=== PATIENT | male | born 1955 | race Caucasian/White ===

== ENCOUNTER 2017-10-19 07:48 | Day surgery (SDC) | payer MEDICARE, OTHER ==
[2017-10-19] MEDS ORDERED: Lactated Ringers 1,000 ML IV ONE (07:49)
[2017-10-19] MEDS ORDERED: Xylocaine 1% Vial 30 ML PF IJ ONE (07:49)
[2017-10-19] MEDS ORDERED: Marcaine 0.5% SDV 10 ML IJ ONE (07:49)
[2017-10-19] MEDS ORDERED: DIPRIVAN 200 MG/20 ML IV ONE (07:49)
--- NOTE | 2017-10-19 13:06 | XRAY ---
35 seconds fluoroscopy time in surgery for L4-S1 MBB.
--- NOTE | 2017-10-19 13:07 | XRAY ---
Indication: L4-S1 MBB. Intraoperative fluoroscopy was provided for 35 seconds. 3 digital spot images submitted for interpretation demonstrates posterior spinal needle tips projecting over the left L3-L4, L4-L5, and L5-S1 facets. Correlate with intraoperative findings/report.
--- NOTE | 2017-10-20 11:10 | OP ---
DATE OF PROCEDURE: 10/19/2017 0937 SURGEON: Xu Donohue D.O. PREOPERATIVE DIAGNOSIS: Degenerative lumbar spine disease, spondylosis, low back pain. POSTOPERATIVE DIAGNOSIS: Degenerative lumbar spine disease, spondylosis, low back pain. PROCEDURE PERFORMED: Left L5, L4, L3 medial branch block under fluoroscopic guidance. DESCRIPTION OF THE PROCEDURE: The patient was taken to the operating room and placed in the prone position on the table. Skin at the injection site was prepped and draped in sterile fashion. Under fluoroscopy, bony anatomy of the targeted injection site was visualized. Induction agent was given as per anesthesia while vital signs were monitored. The local anesthetic agent used for this procedure is 11 cc of 1% lidocaine preservative free to anesthetize the skin and the subcutaneous tissue through the injection site. The medication used for the nerve blocks is 1 cc of 0.5% preservative-free Marcaine were injected into each of the targeted medial branch nerve. Under fluoroscopic guidance, a #20 gauge standard spinal needle was advanced into the target medial branch through the oblique approach. After the needle was being removed, the skin was cleansed with alcohol and then a bandage was applied. No complications or adverse consequences were observed. The patient was returned to the holding area until stabilized before discharge to home. Preoperative pain level is 8 out of 10 and postoperative pain level is 7 out of 10. The patient will be followed up within ten days after the injection for re-evaluation.
== END 2017-10-19 10:15 | disposition home or self-care (01) ==
LOC: SDC-PAIN 07:48
PROVIDERS: ATTEND Internal Medicine
DX: M54.5 Low back pain (principal); M46.96 Unspecified inflammatory spondylopathy, lumbar region; M51.36 Other intervertebral disc degeneration, lumbar region; Z79.891 Long term (current) use of opiate analgesic
CPT/HCPCS: 64493; 64494; 64495; 72020; 77003; 82962; J2001; J2704

== ENCOUNTER 2018-03-12 14:40 | Emergency (ER) | payer MEDICARE, OTHER ==
[2018-03-12 15:01] VITALS: BP 132/78; PULSE 82; O2SAT 97
--- NOTE | 2018-03-12 15:37 | ERPHSYRPT ---
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 swelling and ppain with movement,. Triage Nursing Assessment: alert and oriented.. pain in left wrist with swelling. + radial pulse palpable. denies any other injuries. swelling to hand. Physician History: This is a 62-year-old white male with history of diabetes, liver disease, sleep apnea, hyperlipidemia, high blood pressure, myocardial infarction, hepatitis, arthritis, degenerative disc disease. He arrives with complaint of pain in his left wrist since yesterday states he was pulling on a lawn more and injured his left wrist he states he has pain with any movement of his left wrist located dorsally medially and laterally. Patient is not having any problems moving his fingers he does state he has some paresthesias to the fingers. Past medical history includes diabetes, liver disease, sleep apnea, hyperlipidemia, high blood pressure, myocardial infarction, hepatitis, arthritis , degenerative disc disease. Past surgical history includes bariatric surgery, left knee replacement, nasal surgery, elbow surgery Occurred: yesterday Method of Injury: other (starting a lawnmower and injured his left wrist) Extremities Pain Location: wrist: left Modifying Factors: Improves With: movement Associated Symptoms: none Allergies/Adverse Reactions: No Known Drug Allergies Allergy (Unverified 10/29/14 09:17) Home Medications: Atorvastatin Calcium [Lipitor] 20 mg PO DAILY 10/19/12 [History] Fluoxetine HCl 20 mg [Prozac 20 MG] 40 mg PO DAILY 10/19/12 [History] Alendronate Sodium 35 mg PO WEEKLY 08/15/17 [History] Amlodipine Besylate 10 mg [Norvasc 10 MG] 10 mg PO DAILY 08/15/17 [History] Aspirin [Aspirin EC] 81 mg PO DAILY 08/15/17 [History] Benazepril HCl 10 mg [Lotensin 10 MG] 10 mg PO DAILY 08/15/17 [History] Carvedilol 12.5 mg [Coreg 12.5 mg] 12.5 mg PO BID 08/15/17 [History] Metformin HCl 500 mg [Glucophage 500 MG] 500 mg PO DAILY 08/15/17 [History ] Ropinirole HCl 1 mg PO BID 08/15/17 [History] Sildenafil Citrate [Viagra] 50 mg PO UD 08/15/17 [History] Gabapentin 300 - 600 mg PO HS 09/19/17 [History] Hydrocodone/Acetaminophen [[facility] 5-325 Tablet] 1 each PO TID 10/11/17 [History] Hx Influenza Vaccination/Date Given: Yes Hx Pneumococcal Vaccination/Date Given: Yes Immunizations Up to Date: No - Review of Systems Constitutional: No Fever, No Chills Eyes: No Symptoms Ears, Nose, & Throat: No Symptoms Respiratory: No Cough, No Dyspnea Cardiac: No Chest Pain, No Edema, No Syncope Abdominal/Gastrointestinal: No Symptoms Genitourinary Symptoms: No Dysuria Musculoskeletal: Other (left wrist pain), No Back Pain, No Neck Pain Skin: No Rash Neurological: No Dizziness, No Focal Weakness, No Sensory Changes Psychological: No Symptoms Endocrine: No Symptoms All Other Systems: Reviewed and Negative - Past Medical History Pertinent Past Medical History: Yes Neurological History: No Pertinent History ENT History: No Pertinent History Cardiac History: High Cholesterol, Hypertension, Myocardial Infarction ([place]) Respiratory History: Sleep Apnea Endocrine Medical History: Diabetes Type II, Liver Disease Musculoskeletal History: Arthritis, Degenerative Disk Disease GI Medical History: Hepatitis History: No Pertinent History Psycho-Social History: No Pertinent History Male Reproductive Disorders: No Pertinent History Other Medical History: Hep C - Past Surgical History Past Surgical History: Yes Neuro Surgical History: No Pertinent History Cardiac: Cardiac Catheterization Respiratory: No Pertinent History Gastrointestinal: Other Genitourinary: No Pertinent History Musculoskeletal: Orthopedic Surgery, Other Male Surgical History: No Pertinent History Other Surgical History: bariatric surgery 5yrs ago 3 back surgeries, left knee replacement,2 nasal surgeries, left elbow, several scopes of different joints - Social History Smoking Status: Former smoker Exposure to second hand smoke: No Drug Use: none Patient Lives Alone: No - Nursing Vital Signs Nursing Vital Signs: Initial Vital Signs Temperature 98.5 F 03/12/18 14:51 Pulse Rate 82 03/12/18 14:51 Respiratory Rate 18 03/12/18 14:51 Blood Pressure 132/78 03/12/18 14:51 O2 Sat by Pulse Oximetry 97 03/12/18 14:51 Pain Scale Pain Intensity 6 - Physical Exam General Appearance: mild distress Eyes, Ears, Nose, Throat Exam: moist mucous membranes Neck Exam: non-tender, supple Cardiovascular/Respiratory Exam: chest non-tender, normal breath sounds, regular rate/rhythm, no respiratory distress Abdominal Exam: non-tender, No guarding Back Exam: normal inspection, No vertebral tenderness Shoulder Exam: normal inspection, non-tender, no evidence of injury, normal ROM Elbow/Forearm Exam: normal inspection, non-tender, no evidence of injury, normal ROM Wrist Exam: No normal inspection (left wrist tender with palpation and movement , dorsally, laterally, medially, left radial and ulnar pulses equal equal 2/4, good capillary refill all fingers sensation intact to all fingers.) Hand Exam: normal inspection, non-tender, no evidence of injury, normal ROM Neuro/Tendon Exam: normal sensation, normal motor functions Mental Status Exam: alert, oriented x 3, cooperative Skin Exam: normal color, warm, dry SpO2 Interpretation: normal (97%) SpO2: 97 Oxygen Delivery: Room Air - Course Nursing assessment & vital signs reviewed: Yes - Radiology Exams Left Wrist X-ray Interpretation: Reviewed by me, Negative, No Fracture, No Subluxation Ordered Tests: Active Orders 24 hr Category Date Time Status WRIST (MIN 3 VIEWS) Stat Exams 03/12/18 14:55 Taken - Progress Progress: improved Progress Note: 03/12/18 15:35 62-year-old white male arrives with complaint of pain and swelling left wrist since starting a lawn more yesterday he stated that he injured his wrist trying to start the lawn more he has pain in his left dorsal medial and lateral wrist with palpation and movement. He has good capillary refill to all fingers sensation intact to all fingers radial and ulnar pulses are intact and symmetrical 2 over 4. X-ray of the left wrist (my read, no fracture no subluxation) Patient apparently has had recent eye surgery and is due for eye surgery again tomorrow. Patient is also on [place]s 10/325 at home for chronic pain. I've offered to give him some [place] 10/325 here in the emergency room as he had not taken his afternoon dose however he states he would prefer to go home and take his own medication. Will go ahead and place a Velcro wrist splint on the left wrist. Patient to ice and elevate left wrist 24-48 hours pain medication as prescribed by his pain production control expediter. - Departure Time of Disposition: 15:37 Departure Disposition: Home Clinical Impression: Left wrist pain Left wrist sprain Qualifiers: Encounter type: initial encounter Qualified Code(s): S63.502A - Unspecified sprain of left wrist, initial encounter Condition: Fair Critical Care Time: No Referrals: CHLOÉ CARABALLO [Primary Care Provider] - Additional Instructions: Return home. Ice and elevate your left wrist 24-48 hours. [facility]s as prescribed by your pain production control expediter. Follow-up with your family Dr. symptoms are worse no better in 24-48 hours or persist longer than one week. Return for acute distress or for severe symptoms. Your x-rays have been preliminarily read they will be reread tomorrow you'll be contacted if any discrepancies are noted. You may wear your left wristlet for 48-72 hours, longer if pain persists.
--- NOTE | 2018-03-12 20:27 | XRAY ---
Indication: Pain following injury. Comparison: None 3 views of the left wrist demonstrates nondisplaced hairline fracture involving the distal radius anteriorly with intra-articular extension and soft tissue swelling. Also nondisplaced ulnar styloid tip fracture. Mild degenerative changes of the scaphoid trapezium articulation. No other bony, articular, or soft tissue abnormalities. Comment: Fractures not reported. Telephone report given to Dr. Pearson at 0825 hrs. on March 12, 2018.
== END 2018-03-12 16:01 | disposition home or self-care (01) ==
LOC: ED 14:40
DX: S63.502A Unspecified sprain of left wrist, initial encounter (principal); M25.532 Pain in left wrist; Z79.899 Other long term (current) drug therapy; X50.3XXA Overexertion from repetitive movements, initial encounter; Y93.H2 Activity, gardening and landscaping; Y92.007 Garden or yard of unspecified non-institutional (private) residence as the place of occurrence of the external cause
CPT/HCPCS: 73110; 99283

== ENCOUNTER 2018-07-12 08:58 | Day surgery (SDC) | payer MEDICARE, OTHER ==
[2018-07-12] MEDS ORDERED: DIPRIVAN 200 MG/20 ML IV ONE (08:59)
[2018-07-12] MEDS ORDERED: Depo-Medrol 40 MG/ML IM ONE (08:59)
[2018-07-12] MEDS ORDERED: Xylocaine-Mpf 2% 5 Ml Vial IJ ONE (08:59)
--- NOTE | 2018-07-12 12:25 | XRAY ---
Indication: Bilateral L4-S1 MBB. Intraoperative fluoroscopy was provided for 34 seconds. 2 digital spot images submitted for interpretation demonstrates posterior spinal needle tips along the expected course of the left and right L4-S1 nerve roots. Correlate with intraoperative findings/report.
--- NOTE | 2018-07-12 14:44 | XRAY ---
34 seconds fluoroscopy time in surgery for bilateral L4-S1 MBB.
[2018-07-12] MEDS ORDERED: Lactated Ringers 1,000 ML IV ONE (14:58)
== END 2018-07-12 11:58 | disposition home or self-care (01) ==
LOC: SDC-PAIN 08:58
PROVIDERS: ATTEND Psychiatry & Neurology Pain Medicine
DX: M47.816 Spondylosis without myelopathy or radiculopathy, lumbar region (principal); M47.817 Spondylosis without myelopathy or radiculopathy, lumbosacral region; M54.5 Low back pain; E11.9 Type 2 diabetes mellitus without complications; I10 Essential (primary) hypertension; Z79.899 Other long term (current) drug therapy
CPT/HCPCS: 64493; 64494; 72020; 77002; 82962; J1030; J2704

== ENCOUNTER 2018-08-09 07:49 | Day surgery (SDC) | payer MEDICARE, OTHER ==
[2018-08-09] MEDS ORDERED: Depo-Medrol 40 MG/ML IM ONE (07:50)
[2018-08-09] MEDS ORDERED: Xylocaine 1% Vial 30 ML PF IJ ONE (07:50)
[2018-08-09] MEDS ORDERED: Marcaine 0.5% SDV 10 ML IJ ONE (07:50)
[2018-08-09] MEDS ORDERED: DIPRIVAN 200 MG/20 ML IV ONE (07:50)
[2018-08-09] MEDS ORDERED: Lactated Ringers 1,000 ML IV ONE (09:16)
--- NOTE | 2018-08-09 10:53 | XRAY ---
12 seconds fluoroscopy time in surgery for L4-S1 MBB.
--- NOTE | 2018-08-09 10:54 | XRAY ---
Indication: Bilateral L4-S1 MBB. Intraoperative fluoroscopy was provided for 12 seconds. Single digital spot image submitted for interpretation demonstrates posterior spinal needle tips along the expected course of the left and right L4-S1 nerve roots. Correlate with intraoperative findings/report.
== END 2018-08-09 10:20 | disposition home or self-care (01) ==
LOC: SDC-PAIN 07:49
PROVIDERS: ATTEND Psychiatry & Neurology Pain Medicine
DX: M47.817 Spondylosis without myelopathy or radiculopathy, lumbosacral region (principal); I10 Essential (primary) hypertension; E11.9 Type 2 diabetes mellitus without complications; Z79.899 Other long term (current) drug therapy
CPT/HCPCS: 64493; 64494; 72020; 77002; 82962; J1030; J2001; J2704

== ENCOUNTER 2018-09-06 08:48 | Day surgery (SDC) | payer MEDICARE, OTHER ==
[2018-09-06] MEDS ORDERED: Depo-Medrol 40 MG/ML IM ONE (08:49)
[2018-09-06] MEDS ORDERED: Xylocaine 1% Vial 30 ML PF IJ ONE (08:49)
[2018-09-06] MEDS ORDERED: Ketamine HCl 50 MG/ML IJ ONE (08:49)
[2018-09-06] MEDS ORDERED: Marcaine 0.5% SDV 10 ML IJ ONE (08:49)
[2018-09-06] MEDS ORDERED: DIPRIVAN 200 MG/20 ML IV ONE (08:49)
--- NOTE | 2018-09-06 12:07 | XRAY ---
Indication: L4-S1 RFA. Intraoperative fluoroscopy was provided for 32 seconds. 2 digital spot images submitted for interpretation demonstrates posterior needle tips projecting over the expected course of the right L4-S1 nerve roots. Correlate with intraoperative findings/report.
--- NOTE | 2018-09-06 12:10 | XRAY ---
32 seconds fluoroscopy time in surgery for L4-S1 RFA.
[2018-09-06] MEDS ORDERED: Lactated Ringers 1,000 ML IV ONE (13:02)
== END 2018-09-06 10:59 | disposition home or self-care (01) ==
LOC: SDC-PAIN 08:48
PROVIDERS: ATTEND Psychiatry & Neurology Pain Medicine
DX: M47.817 Spondylosis without myelopathy or radiculopathy, lumbosacral region (principal); Z79.899 Other long term (current) drug therapy; E11.9 Type 2 diabetes mellitus without complications; G47.30 Sleep apnea, unspecified; I10 Essential (primary) hypertension
CPT/HCPCS: 72020; 77002; J1030; J2001; J2704

== ENCOUNTER 2018-10-25 07:41 | Day surgery (SDC) | payer MEDICARE, OTHER ==
[2018-10-25] MEDS ORDERED: DIPRIVAN 200 MG/20 ML IV ONE (07:42)
[2018-10-25] MEDS ORDERED: Depo-Medrol 40 MG/ML IM ONE (07:42)
[2018-10-25] MEDS ORDERED: Marcaine 0.5% SDV 10 ML IJ ONE (07:42)
[2018-10-25] MEDS ORDERED: Ketamine HCl 50 MG/ML IJ ONE (07:42)
[2018-10-25] MEDS ORDERED: Xylocaine 1% Vial 30 ML PF IJ ONE (07:42)
--- NOTE | 2018-10-25 11:41 | XRAY ---
Indication: Left L4-S1 RFA. Intraoperative fluoroscopy was provided for 24 seconds. 2 digital spot images submitted for interpretation demonstrates posterior needle tips projecting over the expected course of the left L4-S1 nerve roots. Correlate with intraoperative findings/report.
--- NOTE | 2018-10-25 11:43 | XRAY ---
24 seconds fluoroscopy time in surgery for left L4-S1 RFA.
[2018-10-25] MEDS ORDERED: Lactated Ringers 1,000 ML IV ONE (12:43)
== END 2018-10-25 10:27 | disposition home or self-care (01) ==
LOC: SDC-PAIN 07:41
PROVIDERS: ATTEND Psychiatry & Neurology Pain Medicine
DX: M47.816 Spondylosis without myelopathy or radiculopathy, lumbar region (principal); E11.9 Type 2 diabetes mellitus without complications; I10 Essential (primary) hypertension; G47.30 Sleep apnea, unspecified; Z79.899 Other long term (current) drug therapy
CPT/HCPCS: 64635; 64636; 72100; 77002; 82962; J1030; J2001; J2704

== ENCOUNTER 2022-09-21 10:05 | Observation (INO) | payer MEDICARE, OTHER ==
--- NOTE | 2022-09-21 10:19 | XRAY ---
Indication: Weakness. History of stroke. Multiple contiguous images obtained through the head without contrast. Comparison: None Age-appropriate global atrophy. Large old left temporoparietal lobe infarct. Left brain stem demonstrates smaller 1.3 cm old infarct. No acute intracranial hemorrhage, hydrocephalus, or mass effect. Fourth ventricle is midline. Bony calvarium intact. Visualized paranasal sinuses and mastoid air cells are clear. Impression: Atrophy and old left temporoparietal/left brainstem infarcts. No acute intracranial abnormalities.
[2022-09-21 10:37] LABS: Absolute Neutrophil Ct (ANC) 5.12 x10^3/uL (1.4-6.9); BASOPHIL % 0.8 % (0.0-0.4); Basophil (Absolute #) 0.06 x10^3/uL (0-0.4); Eosinophil % 4.1 % (0.00-5.0); Eosinophil (Absolute #) 0.29 x10^3/uL (0-0.5); Hematocrit 45.4 % (42-50); Hemoglobin 15.1 g/dL (12.5-18.0); IMMATURE GRAN # 0.03 x10^3u/L (0.00-0.03); IMMATURE GRAN % 0.4 % (0.00-0.4); Lymphocyte (Absolute #) 1.03 x10^3/uL (1.0-4.6); Lymphocytes % 14.6 % (24.0-44.0); Mean Cell Volume 89.4 fL (78-100); Mean Corpuscular Hemoglobin 29.7 pg (26-32); Mean Corpuscular Hgb Concent. 33.3 g/dL (32-36); Mean Platelet Volume 8.8 fL (7.5-11.0); Monocyte (Absolute #) 0.54 x10^3/uL (0.0-1.3); Monocytes % 7.6 % (0.0-12.0); Neutrophil % 72.5 % (36.0-66.0); Platelet Count 383 x10^3/uL (150-450); Red Blood Count 5.08 x10^6/uL (4.1-5.6); White Blood Count 7.1 x10^3/uL (4.0-10.5)
--- NOTE | 2022-09-21 10:48 | ERPHSYRPT ---
- History of Present Illness Source: patient, other () Exam Limitations: other (Pt w chronic expressive aphasia) Patient Subjective Stated Complaint: PT states "He can follow commands but he cannot speak due to a previous stroke. He was supposed to go to speech therapy this morning and when I got him up this morning he was uncoordinated and didn't look like he was tracking well. He was last his normal at 930 last night." Triage Nursing Assessment: Pt presented alert and able to follow commands, pt will answer some questions but is mostly mute. Pt able to ambulates with a slow steady gait. PT resting comfortably on the bed at this time. Physician History: 66 yo WM w h/o brain stem CVA and expressive aphasia presents by private vehicle w being off balance and disoriented per upon waking. Pt has a chronic R hemiparesis. states that pt might be back to baseline but still has concerns. Pt had some N/V yesterday, but fever/hematemesis/diarrhea/dysuria/hematuria/abdominal pain/chest pain are all denied. Timing/Duration: today (Upon wakening), improved Severity: mild Character of Deficits: other (Off balance/disoriented per ) Baseline/Normal Cognition: alert oriented x 3 Current Cognition: alert oriented x 3 Associated Symptoms: nausea, vomiting, slurred speech Allergies/Adverse Reactions: No Known Drug Allergies Allergy (Verified 09/21/22 10:20) Home Medications: Fluoxetine HCl 20 mg [Prozac 20 MG] 40 mg PO DAILY 10/19/12 [History] Alendronate Sodium 35 mg PO WEEKLY 08/15/17 [History] Aspirin [Aspirin EC] 81 mg PO DAILY 08/15/17 [History] Carvedilol 12.5 mg [Coreg 12.5 mg] 3.125 mg PO BID 08/15/17 [History] Ropinirole HCl 1 mg PO BID 08/15/17 [History] Esomeprazole Magnesium 40 mg PO DAILY 09/21/22 [History] Multivitamin [Multi-Vitamin Daily] 1 tab PO DAILY 09/21/22 [History] [place]-3/Dha/Epa/Fish Oil [Fish Oil 1,000 mg Softgel] 1 each PO DAILY 09/21/22 [History] lisinopriL [Zestril] 2.5 mg PO DAILY 09/21/22 [History] Hx Tetanus, Diphtheria Vaccination/Date Given: Yes Hx Influenza Vaccination/Date Given: Yes Hx Pneumococcal Vaccination/Date Given: Yes Immunizations Up to Date: Yes Travel Risk - International Travel Have you traveled outside of the country in past 3 weeks: No - Coronavirus Screening Are you exhibiting any of the following symptoms?: No Close contact with a COVID-19 positive Pt in past 14-21 Days: No - Vaccine Status Have you recieved a Covid-19 vaccination: Yes [employer]: Moderna - Vaccination Dates Date of 2cond Vaccination (if applicable): 2020 - Review of Systems Constitutional: No Symptoms Eyes: No Symptoms Ears, Nose, & Throat: No Symptoms Respiratory: No Symptoms Cardiac: No Symptoms Abdominal/Gastrointestinal: No Symptoms, Nausea, Vomiting Genitourinary Symptoms: No Symptoms Musculoskeletal: No Symptoms Skin: No Symptoms Neurological: Focal Weakness (Chronic) Psychological: No Symptoms Endocrine: No Symptoms Hematologic/Lymphatic: No Symptoms Immunological/Allergic: No Symptoms - Past Medical History Pertinent Past Medical History: Yes Neurological History: Migraines, Stroke ENT History: No Pertinent History Cardiac History: Hypertension, Myocardial Infarction ([place]) Respiratory History: No Pertinent History Endocrine Medical History: Diabetes Type II Musculoskeletal History: Fractures, Osteoarthritis GI Medical History: Hepatitis History: No Pertinent History Psycho-Social History: No Pertinent History Male Reproductive Disorders: No Pertinent History Other Medical History: HEPATITIS C, CHRONIC PAIN SYNDROME, DYSPHAGIA. SX HX: BACK SX X 5, RIGHT SHOULDER REPLACEMENT, RIGHT KNEE REPLACEMENT, GASTRIC BYPASS 2009 - Past Surgical History Past Surgical History: Yes Neuro Surgical History: No Pertinent History Cardiac: Cardiac Catheterization Respiratory: No Pertinent History Gastrointestinal: Other Genitourinary: No Pertinent History Musculoskeletal: Orthopedic Surgery, Other Male Surgical History: No Pertinent History Other Surgical History: bariatric surgery 5yrs ago 3 back surgeries, left knee replacement,2 nasal surgeries, left elbow, several scopes of different joints - Social History Smoking Status: Former smoker Exposure to second hand smoke: No Drug Use: none Patient Lives Alone: No - Nursing Vital Signs Nursing Vital Signs: Initial Vital Signs Temperature 98.6 F 09/21/22 10:12 Pulse Rate 60 09/21/22 10:12 Respiratory Rate 20 09/21/22 10:12 Blood Pressure 120/80 09/21/22 10:12 O2 Sat by Pulse Oximetry 96 09/21/22 10:12 Pain Scale Pain Intensity 0 WNL - Merkel Coma Scale Best Eye Response (Merkel): (4) open spontaneously Best Verbal Response (Merkel): (5) oriented (Pwer ) Best Motor Response (Lucio): (6) obeys commands Lucio Total: 15 - Physical Exam General Appearance: no apparent distress Eye Exam: bilateral eye: normal inspection, PERRL, EOMI Ears, Nose, Throat Exam: normal ENT inspection, TMs normal, pharynx normal, moist mucous membranes Neck Exam: normal inspection, non-tender, supple, full range of motion, No meningismus, No mass, No Brudzinski, No Kernig's, No carotid bruit Respiratory: airway intact, crackles/rales (Faint Rales B bases), No respiratory distress Cardiovascular: regular rate/rhythm, normal heart sounds, normal peripheral pulses, capillary refill <2 sec, No murmur Gastrointestinal: soft, normal bowel sounds, No tenderness Back Exam: normal inspection, normal range of motion, No CVA tenderness, No vertebral tenderness Extremity Exam: normal inspection, normal range of motion Peripheral Pulses: carotid (R): 2+, carotid (L): 2+ Mental Status: alert, oriented x 3 respite care provider Exam: normal hearing (Chronic deafness), PERRL Motor/Sensory: weak motor strength RLE (Chronic ) DTR: bicep (R): 2+, bicep (L): 2+ Skin Exam: normal color, warm, dry, No rash SpO2 Interpretation: normal SpO2: 96 O2 Delivery: Room Air - Course EKG Interpreted by Me: RATE (NSR/Rate 66/Normal QT-QTc/Artifact/Poor R wave progression V2-V3) - CT Exams Head CT Interpretation: Discussed w/radiologist (CT stroke protocol/Nothing acute/Old L temporo-parietal CVA/L brainstem infarcts) Ordered Tests: Active Orders 24 hr Category Date Time Status Bedrest ROUTINE Activity 09/21/22 13:20 Active Code Status Order ROUTINE Care 09/21/22 13:19 Active EKG-ER Only STAT Care 09/21/22 10:07 Active EKG-ER Only STAT Care 09/21/22 10:35 Active IV Care Q6H Care 09/21/22 13:19 Active IV Insertion STAT Care 09/21/22 10:07 Active NPO (ED) STAT Care 09/21/22 10:07 Active Neuro Checks Q4H Care 09/21/22 13:[address] in Observation ROUTINE Care 09/21/22 13:19 Active Vital Signs Q4H Care 09/21/22 13:19 Active Tele-Health Consult ROUTINE Cons 09/21/22 13:19 Active Heart-Healthy Diet Diet 09/21/22 Dinner Active HEAD WITHOUT CONTRAST [CT] Stat Exams 09/21/22 10:07 Completed MRA BRAIN WITHOUT CONTRAST [MRI] Stat Exams 09/21/22 10:41 Completed MRI BRAIN W/O CONTRAST [MRI] Stat Exams 09/21/22 10:40 Completed CBC W DIFF AM.LAB Lab 09/22/22 04:00 Ordered CBC W DIFF Stat Lab 09/21/22 10:20 Completed CMP AM.LAB Lab 09/22/22 04:00 Ordered MAGNESIUM Stat Lab 09/21/22 10:20 Completed PROTIME WITH INR Stat Lab 09/21/22 10:20 Completed PTT Stat Lab 09/21/22 10:20 Completed TROPONIN Q4H Lab 09/21/22 14:15 Ordered TROPONIN Q4H Lab 09/21/22 18:15 Ordered Transfer Order Routine Transfer 09/21/22 Ordered Medication Summary Generic Name Dose Route Start Last Admin Trade Name Freq PRN Reason Stop Dose Admin Sodium Chloride 1,000 mls @ 70 mls/hr 09/21/22 13:30 Sodium Chloride 0.9% 1000 Ml IV 10/21/22 13:29 .[id number] RENU Discontinued Medications Generic Name Dose Route Start Last Admin Trade Name Freq PRN Reason Stop Dose Admin Aspirin 324 mg 09/21/22 12:45 09/21/22 12:38 Aspirin 81 Mg Tab.Chew PO 09/21/22 12:46 324 mg STAT ONE Administration Aspirin Confirm 09/21/22 12:37 Aspirin 81 Mg Tab.Chew Administered 09/21/22 12:38 Dose 324 mg .ROUTE .STK-MED ONE Lab/Rad Data: Laboratory Result Diagrams 09/21/22 10:20 09/21/22 10:20 Laboratory Results 09/21/22 09/21/22 09/21/22 Range/Units 12:40 10:20 10:20 WBC (4.0-10.5) x10^3/uL RBC (4.1-5.6) x10^6/uL Hgb (12.5-18.0) g/dL Hct (42-50) % MCV (78-100) fL MCH (26-32) pg MCHC (32-36) g/dL RDW (11.5-14.0) % Plt Count (150-450) x10^3/uL MPV (7.5-11.0) fL Gran % (36.0-66.0) % Immature Gran % (Auto) (0.00-0.4) % Nucleat RBC Rel Count (0.00-0.1) % Eos # (Auto) (0-0.5) x10^3/uL Immature Gran # (Auto) (0.00-0.03) x10^3u/L Absolute Lymphs (auto) (1.0-4.6) x10^3/uL Absolute Monos (auto) (0.0-1.3) x10^3/uL Absolute Nucleated RBC (0.00-0.01) x10^3u/L Lymphocytes % (24.0-44.0) % Monocytes % (0.0-12.0) % Eosinophils % (0.00-5.0) % Basophils % (0.0-0.4) % Absolute Granulocytes (1.4-6.9) x10^3/uL Basophils # (0-0.4) x10^3/uL PT (9.4-12.5) SECONDS INR (0.8-3.0) APTT (25.1-36.5) SECONDS Sodium Direct (138-146) mmol/L Potassium (3.5-4.9) mmol/L Chloride (98-109) mmol/L Carbon Dioxide (24-29) mmol/L Venous BUN (8-26) mg/dL Creatinine (0.6-1.3) mg/dL Glucose (70-105) mg/dL Ionized Calcium (1.12-1.32) mmol/L Magnesium 2.4 H (1.6-2.3) mg/dL Troponin 0.00 (0.00-0.03) ng/mL Influenza Type A Ag NEGATIVE (NEGATIVE) Influenza Type B Ag NEGATIVE (NEGATIVE) RSV (PCR) NEGATIVE (NEGATIVE) SARS-CoV-2 (PCR) NEGATIVE (NEGATIVE) 09/21/22 09/21/22 09/21/22 Range/Units 10:20 10:20 10:20 WBC 7.1 (4.0-10.5) x10^3/uL RBC 5.08 (4.1-5.6) x10^6/uL Hgb 15.1 (12.5-18.0) g/dL Hct 45.4 (42-50) % MCV 89.4 (78-100) fL MCH 29.7 (26-32) pg MCHC 33.3 (32-36) g/dL RDW 13.0 (11.5-14.0) % Plt Count 383 (150-450) x10^3/uL MPV 8.8 (7.5-11.0) fL Gran % 72.5 H (36.0-66.0) % Immature Gran % (Auto) 0.4 (0.00-0.4) % Nucleat RBC Rel Count 0.0 (0.00-0.1) % Eos # (Auto) 0.29 (0-0.5) x10^3/uL Immature Gran # (Auto) 0.03 (0.00-0.03) x10^3u/L Absolute Lymphs (auto) 1.03 (1.0-4.6) x10^3/uL Absolute Monos (auto) 0.54 (0.0-1.3) x10^3/uL Absolute Nucleated RBC 0.00 (0.00-0.01) x10^3u/L Lymphocytes % 14.6 L (24.0-44.0) % Monocytes % 7.6 (0.0-12.0) % Eosinophils % 4.1 (0.00-5.0) % Basophils % 0.8 (0.0-0.4) % Absolute Granulocytes 5.12 (1.4-6.9) x10^3/uL Basophils # 0.06 (0-0.4) x10^3/uL PT 10.0 (9.4-12.5) SECONDS INR 0.91 (0.8-3.0) APTT 27.7 (25.1-36.5) SECONDS Sodium Direct 141 (138-146) mmol/L Potassium 3.8 (3.5-4.9) mmol/L Chloride 105 (98-109) mmol/L Carbon Dioxide 27 (24-29) mmol/L Venous BUN 13 (8-26) mg/dL Creatinine 0.7 (0.6-1.3) mg/dL Glucose 118 H (70-105) mg/dL Ionized Calcium 1.26 (1.12-1.32) mmol/L Magnesium (1.6-2.3) mg/dL Troponin (0.00-0.03) ng/mL Influenza Type A Ag (NEGATIVE) Influenza Type B Ag (NEGATIVE) RSV (PCR) (NEGATIVE) SARS-CoV-2 (PCR) (NEGATIVE) - Progress Progress: improved Progress Note: 09/21/22 12:[address] Nghia Mitchell mid-periventricular white matter 1cm micro-is chemia/smaller acute areas of ischemia seen anterior and posterior to this area/L insula MRA of Brain neg per Dr. Agrawal 09/21/22 13:30 Nursing note and vital signs reviewed All lab results reviewed and shared w pt CT head/MRI-MRA head reviewed and shared w pt/ Additional history per No food or housing insecurities noted Obs admit per Dr. William ASA 325mg po Discussed with DrCharly: Eyad Counseled pt/family regarding: lab results, diagnosis, rad results Medical Desision Making - Independent Historian Additional History obtained from: Spouse - Discussion of managment Care discussed with:: on-call "doc" Reviewed:: Test results, Need for additional workup Agreed on:: Treatment plan, place in obs - Diagnostic Testing Diagnostic test were ordered, analyzed, and reviewed by me: Yes Radiological Interpretation: Discussed w/ radiologist - Risk of complications The pt has a mod risk of morbidity or mortality based on: Need for prescription drug management - Departure Departure Disposition: Observation Clinical Impression: CVA (cerebral vascular accident) Condition: Stable Critical Care Time: Yes Critical Care Time(excluding separately billable procedures): Critical 30-74 mins Referrals: CHLOÉ CARABALLO [Primary Care Provider] - Follow up/PCP as directed
[2022-09-21 10:52] LABS: INR 0.91 (0.8-3.0); PTT 27.7 SECONDS (25.1-36.5)
[2022-09-21 11:03] LABS: ISTAT K 3.8 mmol/L (3.5-4.9); ISTAT iCA 1.26 mmol/L (1.12-1.32)
[2022-09-21 11:04] LABS: ISTAT CREA 0.7 mg/dL (0.6-1.3)
--- NOTE | 2022-09-21 12:19 | XRAY ---
Indication: Acute stroke. History of old stroke. Sagittal, coronal, and axial MRI brain performed without contrast using T1, T2, FLAIR, diffusion, and ADC sequences. Comparison: None Age-appropriate global atrophy and mild periventricular degenerative micro-ischemia signal bilaterally. Large old left temporoparietal infarct with encephalomalacia and gliosis signal. Left mid periventricular white matter demonstrates 1 cm focus of restricted signal favoring acute micro-ischemia. Smaller acute micro-ischemia seen anterior and posterior to this and left insula. No acute intracranial hemorrhage, hydrocephalus, or mass effect. Fourth ventricle is midline. 7/8 cranial nerve complex bilaterally symmetric. Normal flow-void signal within the major intracerebral circulation. Normal appearing craniocervical junction and sella turcica. Paranasal sinuses are clear. Impression: 1. A few centimeter/subcentimeter acute micro-ischemia seen left periventricular white matter and left insula. No acute hemorrhage/mass effect. 2. Large focus old left temporoparietal infarct. 3. Atrophy and degenerative micro-ischemia within normal limits for patient's age.
--- NOTE | 2022-09-21 12:21 | XRAY ---
Indication: Acute stroke. History old stroke. Multi-slab 3-D [id number] MRA [place] performed. Comparison: None Distal internal carotid arteries are bilaterally symmetric without critical stenosis/obstruction. Normal carotid terminus with normal branching A1 and M1 segments bilaterally. Anatomic variant for origin left posterior cerebral artery. Posterior circulation demonstrates slightly larger/dominant distal left vertebral artery. Remaining basilar, left/right posterior cerebral, and visualized left/right supracerebellar arteries are normal in MRA appearance. Impression: Negative MRA [place].
[2022-09-21] MEDS ORDERED: Ecotrin 325 MG PO ONE (12:31)
[2022-09-21] MEDS ORDERED: BABY ASPIRIN 81 MG CHEW ONE (12:37)
[2022-09-21] MEDS ORDERED: BABY ASPIRIN 81 MG CHEW PO ONE (12:45)
[2022-09-21 13:22] LABS: INFLUENZA A NEGATIVE (NEGATIVE); INFLUENZA B NEGATIVE (NEGATIVE); RESPIRATORY SYNCTIAL VIRUS NEGATIVE (NEGATIVE); SARS-CoV-2 Xpert Express NEGATIVE (NEGATIVE)
[2022-09-21] MEDS ORDERED: Sodium Chloride 0.9% 1000 ML 1,000 ML IV SCH (13:30)
[2022-09-21] MEDS ORDERED: TYLENOL 325 MG PO PRN (21:41)
[2022-09-21] MEDS ORDERED: Tums EX 750 MG PO PRN (21:43)
[2022-09-21] MEDS ORDERED: NON-FORMULARY ITEM (Sodium Bicarbonate 650 MG Tablet) PO SCH (22:00)
[2022-09-21] MEDS ORDERED: COREG 12.5 MG PO SCH (22:00)
[2022-09-21] MEDS ORDERED: NON-FORMULARY ITEM (Ropinirole Hcl [Ropinirole Hcl] 1 MG Tablet) PO SCH (22:00)
[2022-09-21] MEDS: REQUIP 2MG TAB PO SCH (22:17)
[2022-09-21] MEDS: Coreg PO SCH (22:17)
[2022-09-21] MEDS: SODIUM BICARBONATE PO SCH (22:18)
[2022-09-22 05:20] LABS: Absolute Neutrophil Ct (ANC) 4.95 x10^3/uL (1.4-6.9); BASOPHIL % 0.5 % (0.0-0.4); Basophil (Absolute #) 0.04 x10^3/uL (0-0.4); Eosinophil % 3.5 % (0.00-5.0); Eosinophil (Absolute #) 0.26 x10^3/uL (0-0.5); Hematocrit 43.6 % (42-50); Hemoglobin 14.4 g/dL (12.5-18.0); IMMATURE GRAN # 0.02 x10^3u/L (0.00-0.03); IMMATURE GRAN % 0.3 % (0.00-0.4); Lymphocyte (Absolute #) 1.54 x10^3/uL (1.0-4.6); Lymphocytes % 20.8 % (24.0-44.0); Mean Cell Volume 88.4 fL (78-100); Mean Corpuscular Hemoglobin 29.2 pg (26-32); Mean Platelet Volume 8.8 fL (7.5-11.0); Monocytes % 8.1 % (0.0-12.0); Neutrophil % 66.8 % (36.0-66.0); Platelet Count 340 x10^3/uL (150-450); Red Blood Count 4.93 x10^6/uL (4.1-5.6); Red Cell Distribution Width 13.1 % (11.5-14.0); White Blood Count 7.4 x10^3/uL (4.0-10.5)
[2022-09-22 06:04] LABS: ALBUMIN 3.3 g/dL (3.5-5.0); ALKALINE PHOSPHATASE 96 U/L (38-126); ANION GAP 9.5 MEQ/L (5-15); BLOOD UREA NITROGEN 11 mg/dL (9-20); CHLORIDE 105 mmol/L (98-107); Calcium 8.3 mg/dL (8.4-10.2); Carbon Dioxide 29 mmol/L (22-30); Creatinine 1 0.61 mg/dL (0.66-1.25); EST GLOMERULAR FILTRATION RATE > 60.0 ML/MIN; Glucose 91 mg/dL (74-106); Potassium 3.5 mmol/L (3.5-5.1); SGOT/AST 30 U/L (17-59); SGPT/ALT 34 U/L (0-50); SODIUM 140 mmol/L (137-145); Total Protein 6.2 g/dL (6.3-8.2)
[2022-09-22] MEDS: Protonix 40MG Tablet PO SCH (09:17)
[2022-09-22] MEDS: SODIUM BICARBONATE PO SCH ×2 (09:17→21:37)
[2022-09-22] MEDS: ZOCOR 20MG PO SCH (09:17)
[2022-09-22] MEDS: Prozac 20 MG PO SCH (09:17)
[2022-09-22] MEDS: FISH OIL 1,000 MG CAPSULE PO SCH (09:17)
[2022-09-22] MEDS: REQUIP 2MG TAB PO SCH ×2 (09:17→21:37)
[2022-09-22] MEDS ORDERED: LIPITOR 40MG PO SCH (10:00)
[2022-09-22] MEDS ORDERED: NON-FORMULARY ITEM (Esomeprazole Magnesium [Esomeprazole Magnesium] 40 MG Suspdr.Pkt) PO SCH (10:00)
[2022-09-22] MEDS ORDERED: NON-FORMULARY ITEM (Lisinopril [Zestril] 2.5 MG Tablet) PO SCH (10:00)
[2022-09-22] MEDS: Zestril 5 MG PO SCH (11:17)
[2022-09-22] MEDS: Coreg PO SCH ×2 (11:17→21:36)
--- NOTE | 2022-09-22 13:21 | PCM.HP ---
History of Present Illness - Chief Complaint Chief Complaint: CVA History of Present Illness: is a 66 year old male pt of Dr. Jones with PMHx CAD (hx [place]), CVA (w R hemiparesis and expressive aphasia), HTN, DMII, OA, Hepatitis C, and chronic pain who came in through ER last night with c/o he was off-balance and not himself. He improved after coming to ER. CT head and labs were nonacute. MRI brain showed few cm/subcm acute micro- ischemia, L periventricular white matter and L insula. MRA showed nl [place]. Teleneurology consult was done, thank you, and they recommended atorvastatin 20mg/d, plavix x 21d, ASA 81mg/d, echo (with bubble study), carotid dopplers, and zio patch x2-4 weeks. Pt not able to give history, and even a full neuro exam is difficult due to his expressive aphasia. - Review of Systems Constitutional: No Fever Abdominal/Gastrointestinal: Nausea, Vomiting Medications & Allergies Home Medications: Home Medication List Fluoxetine HCl 20 mg [Prozac 20 MG] 40 mg PO DAILY 10/19/12 [History Confirmed 09/21/22] Alendronate Sodium 35 mg PO WEEKLY 08/15/17 [History Confirmed 09/21/22] Aspirin [Aspirin EC] 81 mg PO DAILY 08/15/17 [History Confirmed 09/21/22] Carvedilol 12.5 mg [Coreg 12.5 mg] 3.125 mg PO BID 08/15/17 [History Confirmed 09/21/22] Ropinirole HCl 1 mg PO BID 08/15/17 [History Confirmed 09/21/22] Atorvastatin Calcium 40 mg PO DAILY 09/21/22 [History Confirmed 09/21/22] Docusate Sodium 100 mg [Docusate Sodium 100 MG] 100 mg PO UD 09/21/22 [History Confirmed 09/21/22] Esomeprazole Magnesium 40 mg PO DAILY 09/21/22 [History Confirmed 09/21/22] Multivitamin [Multi-Vitamin Daily] 1 tab PO DAILY 09/21/22 [History Confirmed 09/21/22] [place]-3/Dha/Epa/Fish Oil [Fish Oil 1,000 mg Softgel] 1 each PO DAILY 09/21/22 [History Confirmed 09/21/22] Sodium Bicarbonate 650 mg PO BID 09/21/22 [History Confirmed 09/21/22] lisinopriL [Zestril] 2.5 mg PO DAILY 09/21/22 [History Confirmed 09/21/22] Allergies/Adverse Reactions: Allergies Allergy/AdvReac Type Severity Reaction Status Date / Time No Known Drug Allergies Allergy Verified 09/21/22 10:20 - Past Medical History Past Medical History: Yes Neurological History: Migraines, Stroke ENT History: No Pertinent History Cardiac History: Hypertension, Myocardial Infarction ([place]) Respiratory History: No Pertinent History Endocrine Medical History: Diabetes Type II Musculoskelatal History: Fractures, Osteoarthritis GI Medical History: Hepatitis History: No Pertinent History Pyscho-Social History: No Pertinent History Male Reproductive Disorders: No Pertinent History Comment: HEPATITIS C, CHRONIC PAIN SYNDROME, DYSPHAGIA. SX HX: BACK SX X 5, RIGHT SHOULDER REPLACEMENT, RIGHT KNEE REPLACEMENT, GASTRIC BYPASS 2009 - Past Surgical History Past Surgical History: Yes Neuro Surgical History: No Pertinent History Cardiac History: Cardiac Catheterization Respiratory Surgery: No Pertinent History GI Surgical History: Other Genitourinary Surgical Hx: No Pertinent History Musculskeletal Surgical Hx: Orthopedic Surgery, Other Male Surgical History: No Pertinent History Other Surgical History: bariatric surgery 5yrs ago 3 back surgeries, left knee replacement,2 nasal surgeries, left elbow, several scopes of different joints. joint replacement in foot. - Social History Smoking Status: Never smoker Exposure to second hand smoke: No Alcohol: None Drug Use: none - Physical Exam Vital Signs: Vital Signs - 24 hr Temp Pulse Resp BP Pulse Ox 09/22/22 11:05 98.0 F 66 16 123/76 94 L 09/22/22 07:29 98.1 F 56 L 16 121/70 93 L 09/22/22 04:00 97.1 F 63 20 127/75 94 L 09/21/22 23:53 97.2 F 57 L 21 123/72 95 09/21/22 20:00 97.3 F 62 18 136/75 93 L 09/21/22 16:00 97.7 F 59 L 17 140/87 93 L 09/21/22 14:01 97.3 F 58 L 18 129/84 98 09/21/22 13:34 96 General Appearance: no apparent distress, alert Neurologic Exam: cooperative, aphasia (expressive), other (Pt answers question with 1-3 words that may be appropriate, then the rest of the sentence is word salad.), No facial droop Eye Exam: eyes nml inspection Ears, Nose, Throat Exam: moist mucous membranes Neck Exam: normal inspection Respiratory Exam: normal breath sounds, lungs clear, No crackles/rales, No rhonchi, No wheezing Cardiovascular Exam: regular rate/rhythm, normal heart sounds, No murmur Gastrointestinal/Abdomen Exam: soft, normal bowel sounds, No tenderness, No distention, No mass, No guarding, No rebound Back Exam: normal inspection, No rash Extremity Exam: other (marked muscle wasting of upper RLE compared with left), No pedal edema, No swelling Skin Exam: normal color, warm, dry, No rash Results - Labs Lab/Micro Results: Lab Results-Last 24 Hours 09/21/22 09/21/22 09/21/22 Range/Units 12:40 14:19 18:17 WBC (4.0-10.5) x10^3/uL RBC (4.1-5.6) x10^6/uL Hgb (12.5-18.0) g/dL Hct (42-50) % MCV (78-100) fL MCH (26-32) pg MCHC (32-36) g/dL RDW (11.5-14.0) % Plt Count (150-450) x10^3/uL MPV (7.5-11.0) fL Gran % (36.0-66.0) % Immature Gran % (Auto) (0.00-0.4) % Nucleat RBC Rel Count (0.00-0.1) % Eos # (Auto) (0-0.5) x10^3/uL Immature Gran # (Auto) (0.00-0.03) x10^3u/L Absolute Lymphs (auto) (1.0-4.6) x10^3/uL Absolute Monos (auto) (0.0-1.3) x10^3/uL Absolute Nucleated RBC (0.00-0.01) x10^3u/L Lymphocytes % (24.0-44.0) % Monocytes % (0.0-12.0) % Eosinophils % (0.00-5.0) % Basophils % (0.0-0.4) % Absolute Granulocytes (1.4-6.9) x10^3/uL Basophils # (0-0.4) x10^3/uL Sodium (137-145) mmol/L Potassium (3.5-5.1) mmol/L Chloride (98-107) mmol/L Carbon Dioxide (22-30) mmol/L Anion Gap (5-15) MEQ/L BUN (9-20) mg/dL Creatinine (0.66-1.25) mg/dL Estimated GFR ML/MIN Glucose (74-106) mg/dL Calcium (8.4-10.2) mg/dL Total Bilirubin (0.2-1.3) mg/dL AST (17-59) U/L ALT (0-50) U/L Alkaline Phosphatase (38-126) U/L Troponin I < 0.012 < 0.012 (0.000-0.034) ng/mL Serum Total Protein (6.3-8.2) g/dL Albumin (3.5-5.0) g/dL Influenza Type A Ag NEGATIVE (NEGATIVE) Influenza Type B Ag NEGATIVE (NEGATIVE) RSV (PCR) NEGATIVE (NEGATIVE) SARS-CoV-2 (PCR) NEGATIVE (NEGATIVE) 09/22/22 09/22/22 Range/Units 04:00 04:53 WBC 7.4 (4.0-10.5) x10^3/uL RBC 4.93 (4.1-5.6) x10^6/uL Hgb 14.4 (12.5-18.0) g/dL Hct 43.6 (42-50) % MCV 88.4 (78-100) fL MCH 29.2 (26-32) pg MCHC 33.0 (32-36) g/dL RDW 13.1 (11.5-14.0) % Plt Count 340 (150-450) x10^3/uL MPV 8.8 (7.5-11.0) fL Gran % 66.8 H (36.0-66.0) % Immature Gran % (Auto) 0.3 (0.00-0.4) % Nucleat RBC Rel Count 0.0 (0.00-0.1) % Eos # (Auto) 0.26 (0-0.5) x10^3/uL Immature Gran # (Auto) 0.02 (0.00-0.03) x10^3u/L Absolute Lymphs (auto) 1.54 (1.0-4.6) x10^3/uL Absolute Monos (auto) 0.60 (0.0-1.3) x10^3/uL Absolute Nucleated RBC 0.00 (0.00-0.01) x10^3u/L Lymphocytes % 20.8 L (24.0-44.0) % Monocytes % 8.1 (0.0-12.0) % Eosinophils % 3.5 (0.00-5.0) % Basophils % 0.5 (0.0-0.4) % Absolute Granulocytes 4.95 (1.4-6.9) x10^3/uL Basophils # 0.04 (0-0.4) x10^3/uL Sodium 140 (137-145) mmol/L Potassium 3.5 (3.5-5.1) mmol/L Chloride 105 (98-107) mmol/L Carbon Dioxide 29 (22-30) mmol/L Anion Gap 9.5 (5-15) MEQ/L BUN 11 (9-20) mg/dL Creatinine 0.61 L (0.66-1.25) mg/dL Estimated GFR > 60.0 ML/MIN Glucose 91 (74-106) mg/dL Calcium 8.3 L (8.4-10.2) mg/dL Total Bilirubin 0.80 (0.2-1.3) mg/dL AST 30 (17-59) U/L ALT 34 (0-50) U/L Alkaline Phosphatase 96 (38-126) U/L Troponin I (0.000-0.034) ng/mL Serum Total Protein 6.2 L (6.3-8.2) g/dL Albumin 3.3 L (3.5-5.0) g/dL Influenza Type A Ag (NEGATIVE) Influenza Type B Ag (NEGATIVE) RSV (PCR) (NEGATIVE) SARS-CoV-2 (PCR) (NEGATIVE) - Radiology Impressions Radiology Exams & Impressions: Radiology Procedures Category Date Time Status ECHO W/2D AND DOPPLER [US] Routine Exams 09/22/22 12:14 Ordered HEAD WITHOUT CONTRAST [CT] Stat Exams 09/21/22 10:07 Completed MRA BRAIN WITHOUT CONTRAST [MRI] Stat Exams 09/21/22 10:41 Completed MRI BRAIN W/O CONTRAST [MRI] Stat Exams 09/21/22 10:40 Completed Assessment/Plan (1) CVA (cerebral vascular accident) Current Visit: Yes Status: Acute Qualifiers: CVA mechanism: unspecified Qualified Code(s): I63.9 - Cerebral infarction, unspecified Assessment & Plan: Appreciate teleneurology consult. Pt on 81mg ASA daily; add plavix. I did have a discussion with pharmacy, pt is on an SSRI and this can affect the metabolism of the plavix, however all SSRI/SNRI are equivocal so I will not be changing his SSRI at this time and refer that back to his PCP. Pt to stay on plavix x 21 days. Code(s): I63.9 - CEREBRAL INFARCTION, UNSPECIFIED (2) CAD (coronary artery disease) Current Visit: Yes Status: Chronic Qualifiers: Coronary Disease-Associated Artery/Lesion type: [place] artery [place] vs. transplanted heart: [place] heart Associated angina: without angina Qualified Code(s): I25.10 - Atherosclerotic heart disease of [place] coronary artery without angina pectoris Code(s): I25.10 - ATHSCL HEART DISEASE OF [place] CORONARY ARTERY W/O ANG PCTRS (3) HTN (hypertension) Current Visit: Yes Status: Chronic Qualifiers: Hypertension type: primary hypertension Qualified Code(s): I10 - Essential (primary) hypertension Code(s): I10 - ESSENTIAL (PRIMARY) HYPERTENSION (4) Diabetes mellitus type II, controlled Current Visit: Yes Status: Acute Qualifiers: Diabetes mellitus fdc insulin use: without buttermaker continuous churn use Diabetes mellitus complication status: with other specified complication Qualified Code(s): E11.69 - Type 2 diabetes mellitus with other specified complication Code(s): E11.9 - TYPE 2 DIABETES MELLITUS WITHOUT COMPLICATIONS (5) Hepatitis C Current Visit: Yes Status: Acute Qualifiers: Viral hepatitis chronicity: unspecified Hepatic coma status: without hepatic coma Qualified Code(s): B19.20 - Unspecified viral hepatitis C without hepatic coma
[2022-09-23 07:12] VITALS: BP 119/82; PULSE 72; O2SAT 92
--- NOTE | 2022-09-23 09:26 | PCM.DS ---
Discharge Summary Date of Admission: 09/21/22 13:48 Admitting Physician: ERIC LANCE Consults: Consults on Case 09/21/22 13:19 Tele-Health Consult ROUTINE Primary Care Provider: CHLOÉ CARABALLO Allergies Allergies No Known Drug Allergies Allergy (Verified 09/21/22 10:20) Hospital Summary - Hospital Course Hospital Course: is a 66 year old male pt of Dr. 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 He improved after coming to ER. CT head and labs were nonacute. MRI brain showed few cm/subcm acute micro- ischemia, L periventricular white matter and L insula. MRA showed [place]. Teleneurology consult was done, thank you, and they recommended atorvastatin 20mg/d, plavix x 21d, ASA 81mg/d, echo (with bubble study), carotid dopplers, and zio patch x2-4 weeks. He will have to f/u with cardiology for the Zio patch. Early this morning, bp was 89/51 while pt was sleeping. Otherwise BP have been stable. F/u BP when he awoke was 119/82. Most BP around 120s systolic, with highest BP for the entire stay 144/77 on day #1. Pt not able to give history due to his expressive aphasia. However, he does feel better today. Can answer yes/no questions. Will be discharged to home and is to f/u with PCP and cardiology. - Vitals & Intake/Output Vital Signs: Vital Signs Temperature 97.7 F 09/23/22 07:11 Pulse Rate 72 09/23/22 07:11 Respiratory Rate 17 09/23/22 07:11 Blood Pressure 119/82 09/23/22 07:11 O2 Sat by Pulse Oximetry 92 L 09/23/22 07:11 Intake & Output: Intake & Output 09/20/22 09/21/22 09/22/22 09/23/22 11:59 11:59 11:59 11:59 Intake Total 1660 1620 Balance 1660 1620 Weight 103.9 kg 102.9 kg - Lab Result Diagrams: 09/22/22 04:00 09/22/22 04:53 - Radiology Exams Ordered Rad Exams-Entire Visit: Radiology Procedures Category Date Time Status ECHO W/2D AND DOPPLER [US] Routine Exams 09/22/22 12:14 Taken HEAD WITHOUT CONTRAST [CT] Stat Exams 09/21/22 10:07 Completed MRA BRAIN WITHOUT CONTRAST [MRI] Stat Exams 09/21/22 10:41 Completed MRI BRAIN W/O CONTRAST [MRI] Stat Exams 09/21/22 10:40 Completed - Procedures and Test Procedures and Tests throughout Hospitalization: Therapy Orders & Screens 09/21/22 14:28 PT Screen per Nursing Assess ONCE Comment: Protocol Order Physician Instructions: Greater than 3 points order PT Admission Screenin Reason For Exam: Triggered on Admission Diagnosis: CVA Open Wound/Cellutlitis/Pressure Ulcers: No Acute Fx/ORIF/Change in wt bearing status: No Severe MUSCULOSKELETAL pain: No ADL Dysfunction: Yes: aphasic Acute CVA w/Hemiparesis/Hemiplegia: Yes Decreased Functional Mobility/Strength: Yes: right side exremity weakn Sprain/Strain: No Acute Post-op Mobility Dysfunction: No Total Points: 9 09/21/22 15:29 ST Eval & Treat (MD Order) .as ordered Comment: Physician Instructions: Reason For Exam: Evaluate: Yes Treat: Yes Reason for Eval: npo until speech eval Diagnosis: CVA 09/22/22 12:13 PT Eval & Treat ( Order) ONCE Reason for Eval:: CVA Diagnosis: CVA Discharge Exam General Appearance: no apparent distress, alert, other (sits up on side of bed for exam) Neurologic Exam: cooperative, normal mood/affect Eye Exam: eyes nml inspection Ears, Nose, Throat Exam: moist mucous membranes Neck Exam: normal inspection Respiratory Exam: normal breath sounds, lungs clear, No crackles/rales, No r honchi, No wheezing Cardiovascular Exam: regular rate/rhythm, normal heart sounds, No murmur Gastrointestinal/Abdomen Exam: soft, normal bowel sounds Back Exam: normal inspection, No rash Extremity Exam: No pedal edema, No swelling Skin Exam: normal color, warm, dry, No rash Final Diagnosis/Problem List - Final Discharge Diagnosis/Problem (1) CVA (cerebral vascular accident) Current Visit: Yes Status: Acute Assessment & Plan: He appears back to baseline. Home on Plavix x 20 more days as well as ASA 81mg, per teleneurology. Echo and carotid doppler were done (pending). F/u with cardiology and PCP. There is a possible interaction between SSRI and Plavix, I have discussed with pharmacy regarding possible other SSRI/SNRI and all have the same interaction. Code(s): I63.9 - CEREBRAL INFARCTION, UNSPECIFIED (2) CAD (coronary artery disease) Current Visit: Yes Status: Chronic Code(s): I25.10 - ATHSCL HEART DISEASE OF [place] CORONARY ARTERY W/O ANG PCTRS (3) HTN (hypertension) Current Visit: Yes Status: Chronic Assessment & Plan: Well controlled on current meds - was actually low early this morning while pt sleeping. Code(s): I10 - ESSENTIAL (PRIMARY) HYPERTENSION (4) Diabetes mellitus type II, controlled Current Visit: Yes Status: Chronic Code(s): E11.9 - TYPE 2 DIABETES MELLITUS WITHOUT COMPLICATIONS (5) Hepatitis C Current Visit: Yes Status: Chronic - Discharge Disposition: Home, Self-Care Condition: Stable Prescriptions: New Aspirin EC 81 mg [Ecotrin 81 mg] 81 mg PO DAILY 30 Days #30 tablet Clopidogrel Bisulfate [Plavix] 75 mg PO DAILY 20 Days #20 tablet Continue Fluoxetine HCl 20 mg [Prozac 20 MG] 40 mg PO DAILY Alendronate Sodium 35 mg PO WEEKLY Ropinirole HCl 1 mg PO BID Carvedilol 12.5 mg [Coreg 12.5 mg] 3.125 mg PO BID Aspirin [Aspirin EC] 81 mg PO DAILY lisinopriL [Zestril] 2.5 mg PO DAILY [place]-3/Dha/Epa/Fish Oil [Fish Oil 1,000 mg Softgel] 1 each PO DAILY Multivitamin [Multi-Vitamin Daily] 1 tab PO DAILY Esomeprazole Magnesium 40 mg PO DAILY Docusate Sodium 100 mg [Docusate Sodium 100 MG] 100 mg PO UD Sodium Bicarbonate 650 mg PO BID Atorvastatin Calcium 40 mg PO DAILY Follow up with: CHLOÉ CARABALLO [Primary Care Provider] -
[2022-09-23] MEDS: Protonix 40MG Tablet PO SCH (09:42)
[2022-09-23] MEDS: Coreg PO SCH (09:42)
[2022-09-23] MEDS: ZOCOR 20MG PO SCH (09:42)
[2022-09-23] MEDS: Prozac 20 MG PO SCH (09:42)
[2022-09-23] MEDS: FISH OIL 1,000 MG CAPSULE PO SCH (09:42)
[2022-09-23] MEDS: REQUIP 2MG TAB PO SCH (09:43)
[2022-09-23] MEDS: Zestril 5 MG PO SCH (09:44)
[2022-09-23] MEDS: SODIUM BICARBONATE PO SCH (09:44)
[2022-09-23] MEDS ORDERED: Docusate Sodium 100 MG PO SCH (10:00)
== END 2022-09-23 10:14 | disposition home or self-care (01) ==
LOC: ED 10:05 → MED SURG 13:48
PROVIDERS: ADMIT Family Medicine; ATTEND Family Medicine
DX: I63.9 Cerebral infarction, unspecified (principal); I25.10 Atherosclerotic heart disease of native coronary artery without angina pectoris; I10 Essential (primary) hypertension; E11.9 Type 2 diabetes mellitus without complications; B19.20 Unspecified viral hepatitis C without hepatic coma; I69.351 Hemiplegia and hemiparesis following cerebral infarction affecting right dominant side; Z79.01 Long term (current) use of anticoagulants; Z79.899 Other long term (current) drug therapy; Z20.828 Contact with and (suspected) exposure to other viral communicable diseases
CPT/HCPCS: 0241U; 36000; 36415; 70450; 70544; 70551; 80047; 80053; 83036; 83735; 84484; 85025; 85610; 85730; 92610; 93005; 93268; 93306; 97161; 99285; 99291; G0378; A9270-GY

== ENCOUNTER 2023-03-16 13:17 | Observation (INO) | payer MEDICARE, OTHER ==
--- NOTE | 2023-03-16 13:40 | XRAY ---
Indication: Slurred speech. Stroke. Multiple contiguous axial images obtained through the head without contrast. Comparison: September 21, 2022 Again age-appropriate global atrophy, large old left temporoparietal infarct, and small old left brainstem infarct. No acute intracranial hemorrhage, hydrocephalus, or mass effect. Fourth ventricle is midline. Bony calvarium intact. Visualized paranasal sinuses and mastoid air cells are clear. Impression: Grossly stable atrophy and old left temporoparietal/left brainstem infarcts. No new or acute intracranial abnormalities.
[2023-03-16 13:50] LABS: Absolute Neutrophil Ct (ANC) 3.61 x10^3/uL (1.4-6.9); BASOPHIL % 0.7 % (0.0-0.4); Basophil (Absolute #) 0.04 x10^3/uL (0-0.4); Eosinophil % 2.2 % (0.00-5.0); Eosinophil (Absolute #) 0.12 x10^3/uL (0-0.5); Hemoglobin 14.1 g/dL (12.5-18.0); IMMATURE GRAN # 0.03 x10^3u/L (0.00-0.03); IMMATURE GRAN % 0.5 % (0.00-0.4); Lymphocyte (Absolute #) 1.11 x10^3/uL (1.0-4.6); Lymphocytes % 20.3 % (24.0-44.0); Mean Cell Volume 89.6 fL (78-100); Mean Corpuscular Hemoglobin 28.7 pg (26-32); Mean Platelet Volume 8.8 fL (7.5-11.0); Monocyte (Absolute #) 0.57 x10^3/uL (0.0-1.3); Monocytes % 10.4 % (0.0-12.0); Neutrophil % 65.9 % (36.0-66.0); Platelet Count 368 x10^3/uL (150-450); Red Blood Count 4.91 x10^6/uL (4.1-5.6); Red Cell Distribution Width 12.4 % (11.5-14.0); White Blood Count 5.5 x10^3/uL (4.0-10.5)
[2023-03-16 14:14] LABS: ALBUMIN 3.6 g/dL (3.5-5.0); ALKALINE PHOSPHATASE 89 U/L (38-126); ANION GAP 13.9 MEQ/L (5-15); BLOOD UREA NITROGEN 9 mg/dL (9-20); CHLORIDE 104 mmol/L (98-107); Calcium 8.4 mg/dL (8.4-10.2); Carbon Dioxide 27 mmol/L (22-30); Creatinine 1 0.54 mg/dL (0.66-1.25); EST GLOMERULAR FILTRATION RATE > 60.0 ML/MIN; Glucose 106 mg/dL (74-106); Potassium 3.4 mmol/L (3.5-5.1); SGOT/AST 27 U/L (17-59); SGPT/ALT 26 U/L (0-50); SODIUM 142 mmol/L (137-145); Total Protein 6.6 g/dL (6.3-8.2)
[2023-03-16 14:15] LABS: INR 0.95 (0.8-3.0); PROTIME 10.4 SECONDS (9.4-12.5); PTT 26.5 SECONDS (25.1-36.5)
--- NOTE | 2023-03-16 16:20 | ERPHSYRPT ---
- History of Present Illness Source: patient, EMS Exam Limitations: clinical condition Patient Subjective Stated Complaint: Pt was at the store and reached up to get something and he had sudden right sided weakness Triage Nursing Assessment: Pt brought to the ER by EMS, hx of strokes with TPA given twice, pt follows few commands but doesn't understand many, attempts to a sk questions but it is word salad, pt was not able to lift his right leg but he is now at this time, pt is able to move his right forearm but cannot lift above the elbow, swallowed water with no problem but does not close lips on the cup and just allows liquid to be poured in, pulses normal, pt is flexing his right hand and continues to move the legs to help with movement, no difficulties with breathing, skin n/w/d, Physician History: 67 yo WM w h/o CVA x2 w tPA administration x 2 presents per EMS w acute RUE/RLE Paralysis starting at 12:30 while reaching for an item at a store. Pt presents per [facility] w stable VS's/expressive aphasia/RUE-RLE weakness. Pt rushed to CT which demonstrated old L infarcts, but nothing acute. Timing/Duration: other (12:30) Character of Deficits: new weakness, impaired speech Baseline/Normal Cognition: alert oriented x 3 Current Cognition: alert but confused Allergies/Adverse Reactions: No Known Drug Allergies Allergy (Verified 03/16/23 13:35) Home Medications: Fluoxetine HCl 20 mg [Prozac 20 MG] 20 mg PO DAILY 10/19/12 [History] Carvedilol 12.5 mg [Coreg 12.5 mg] 3.125 mg PO BID 08/15/17 [History] Ropinirole HCl 1 mg PO TID 08/15/17 [History] Atorvastatin Calcium 40 mg PO DAILY 09/21/22 [History] Esomeprazole Magnesium 40 mg PO DAILY 09/21/22 [History] lisinopriL [Zestril] 2.5 mg PO DAILY 09/21/22 [History] Hx Tetanus, Diphtheria Vaccination/Date Given: Yes Hx Influenza Vaccination/Date Given: Yes Hx Pneumococcal Vaccination/Date Given: Yes Travel Risk - International Travel Have you traveled outside of the country in past 3 weeks: No - Coronavirus Screening Are you exhibiting any of the following symptoms?: No Close contact with a COVID-19 positive Pt in past 14-21 Days: No - Vaccine Status Have you recieved a Covid-19 vaccination: Yes Web Content Director: Moderna - Vaccination Dates Date of 2cond Vaccination (if applicable): 2020 - Review of Systems All Other Systems: Unable due to condition - Past Medical History Pertinent Past Medical History: Yes Neurological History: Migraines, Stroke ENT History: No Pertinent History Cardiac History: Hypertension, Myocardial Infarction (ID) Respiratory History: No Pertinent History Endocrine Medical History: Diabetes Type II Musculoskeletal History: Fractures, Osteoarthritis GI Medical History: Hepatitis History: No Pertinent History Psycho-Social History: No Pertinent History Male Reproductive Disorders: No Pertinent History Other Medical History: HEPATITIS C, CHRONIC PAIN SYNDROME, DYSPHAGIA. SX HX: BACK SX X 5, RIGHT SHOULDER REPLACEMENT, RIGHT KNEE REPLACEMENT, GASTRIC BYPASS 2009 - Past Surgical History Past Surgical History: Yes Neuro Surgical History: No Pertinent History Cardiac: Cardiac Catheterization Respiratory: No Pertinent History Gastrointestinal: Other Genitourinary: No Pertinent History Musculoskeletal: Orthopedic Surgery, Other Male Surgical History: No Pertinent History Other Surgical History: bariatric surgery 5yrs ago 3 back surgeries, left knee replacement,2 nasal surgeries, left elbow, several scopes of different joints. joint replacement in foot. - Social History Smoking Status: Never smoker Exposure to second hand smoke: No Drug Use: none Patient Lives Alone: No - Nursing Vital Signs Nursing Vital Signs: Initial Vital Signs Temperature 98.3 F 03/16/23 13:35 Pulse Rate 64 03/16/23 13:35 Respiratory Rate 11 L 03/16/23 13:35 Blood Pressure 117/75 03/16/23 13:35 O2 Sat by Pulse Oximetry 95 03/16/23 13:35 Pain Scale Pain Intensity 0 WNL - [place] Coma Scale Best Eye Response (Lucio): (4) open spontaneously Best Verbal Response (Lucio): (3) inappropriate words Best Motor Response ([place]): (6) obeys commands Lucio Total: 13 - Physical Exam General Appearance: no apparent distress Eye Exam: bilateral eye: normal inspection, PERRL, EOMI Ears, Nose, Throat Exam: normal ENT inspection, TMs normal, pharynx normal, moist mucous membranes Neck Exam: normal inspection, non-tender, supple, full range of motion, No meningismus, No mass, No Brudzinski, No Kernig's Respiratory: normal breath sounds, lungs clear, airway intact, No respiratory distress Cardiovascular: regular rate/rhythm, normal heart sounds, normal peripheral pulses, capillary refill <2 sec, No murmur Gastrointestinal: soft, normal bowel sounds, No tenderness Back Exam: normal inspection, normal range of motion, No CVA tenderness Extremity Exam: normal inspection Peripheral Pulses: carotid (R): 2+, carotid (L): 2+ Mental Status: alert, cooperative, other (Expressive aphasia) Motor/Sensory: weak motor strength RUE, weak motor strength RLE Skin Exam: normal color, warm, dry, No rash SpO2 Interpretation: normal SpO2: 95 O2 Delivery: Room Air - Course Nursing assessment & vital signs reviewed: Yes EKG Interpreted by Me: RATE (NSR/Rate 63/Normal QT-QTc/flat T waves/flat T waves/Nonspecific ST changes) - CT Exams Head CT Interpretation: Discussed w/radiologist (Old infarcts/Nothing acute) Ordered Tests: Active Orders 24 hr Category Date Time Status EKG-ER Only STAT Care 03/16/23 13:[address] ANGIOGRAPHY NECK [CT] Stat Exams 03/16/23 13:41 Completed CTA HEAD W AND/OR WO CONTRAST [CT] Stat Exams 03/16/23 13:41 Completed HEAD WITHOUT CONTRAST [CT] Stat Exams 03/16/23 13:18 Completed CBC W DIFF Stat Lab 03/16/23 13:48 Completed CMP Stat Lab 03/16/23 13:48 Completed PROTIME WITH INR Stat Lab 03/16/23 13:48 Completed PTT Stat Lab 03/16/23 13:48 Completed TROPONIN Q4H Lab 03/16/23 13:48 Completed TROPONIN Q4H Lab 03/16/23 17:22 Completed TROPONIN Q4H Lab 03/16/23 21:30 Ordered Lab/Rad Data: Laboratory Result Diagrams 03/16/23 13:48 03/16/23 13:48 Laboratory Results 03/16/23 03/16/23 03/16/23 Range/Units 17:22 13:48 13:48 WBC (4.0-10.5) x10^3/uL RBC (4.1-5.6) x10^6/uL Hgb (12.5-18.0) g/dL Hct (42-50) % MCV (78-100) fL MCH (26-32) pg MCHC (32-36) g/dL RDW (11.5-14.0) % Plt Count (150-450) x10^3/uL MPV (7.5-11.0) fL Gran % (36.0-66.0) % Immature Gran % (Auto) (0.00-0.4) % Nucleat RBC Rel Count (0.00-0.1) % Eos # (Auto) (0-0.5) x10^3/uL Immature Gran # (Auto) (0.00-0.03) x10^3u/L Absolute Lymphs (auto) (1.0-4.6) x10^3/uL Absolute Monos (auto) (0.0-1.3) x10^3/uL Absolute Nucleated RBC (0.00-0.01) x10^3u/L Lymphocytes % (24.0-44.0) % Monocytes % (0.0-12.0) % Eosinophils % (0.00-5.0) % Basophils % (0.0-0.4) % Absolute Granulocytes (1.4-6.9) x10^3/uL Basophils # (0-0.4) x10^3/uL PT 10.4 (9.4-12.5) SECONDS INR 0.95 (0.8-3.0) APTT 26.5 (25.1-36.5) SECONDS Sodium (137-145) mmol/L Potassium (3.5-5.1) mmol/L Chloride (98-107) mmol/L Carbon Dioxide (22-30) mmol/L Anion Gap (5-15) MEQ/L BUN (9-20) mg/dL Creatinine (0.66-1.25) mg/dL Estimated GFR ML/MIN Glucose (74-106) mg/dL Calcium (8.4-10.2) mg/dL Total Bilirubin (0.2-1.3) mg/dL AST (17-59) U/L ALT (0-50) U/L Alkaline Phosphatase (38-126) U/L Troponin I < 0.012 < 0.012 (0.000-0.034) ng/mL Serum Total Protein (6.3-8.2) g/dL Albumin (3.5-5.0) g/dL 03/16/23 03/16/23 Range/Units 13:48 13:48 WBC 5.5 (4.0-10.5) x10^3/uL RBC 4.91 (4.1-5.6) x10^6/uL Hgb 14.1 (12.5-18.0) g/dL Hct 44.0 (42-50) % MCV 89.6 (78-100) fL MCH 28.7 (26-32) pg MCHC 32.0 (32-36) g/dL RDW 12.4 (11.5-14.0) % Plt Count 368 (150-450) x10^3/uL MPV 8.8 (7.5-11.0) fL Gran % 65.9 (36.0-66.0) % Immature Gran % (Auto) 0.5 H (0.00-0.4) % Nucleat RBC Rel Count 0.0 (0.00-0.1) % Eos # (Auto) 0.12 (0-0.5) x10^3/uL Immature Gran # (Auto) 0.03 (0.00-0.03) x10^3u/L Absolute Lymphs (auto) 1.11 (1.0-4.6) x10^3/uL Absolute Monos (auto) 0.57 (0.0-1.3) x10^3/uL Absolute Nucleated RBC 0.00 (0.00-0.01) x10^3u/L Lymphocytes % 20.3 L (24.0-44.0) % Monocytes % 10.4 (0.0-12.0) % Eosinophils % 2.2 (0.00-5.0) % Basophils % 0.7 (0.0-0.4) % Absolute Granulocytes 3.61 (1.4-6.9) x10^3/uL Basophils # 0.04 (0-0.4) x10^3/uL PT (9.4-12.5) SECONDS INR (0.8-3.0) APTT (25.1-36.5) SECONDS Sodium 142 (137-145) mmol/L Potassium 3.4 L (3.5-5.1) mmol/L Chloride 104 (98-107) mmol/L Carbon Dioxide 27 (22-30) mmol/L Anion Gap 13.9 (5-15) MEQ/L BUN 9 (9-20) mg/dL Creatinine 0.54 L (0.66-1.25) mg/dL Estimated GFR > 60.0 ML/MIN Glucose 106 (74-106) mg/dL Calcium 8.4 (8.4-10.2) mg/dL Total Bilirubin 0.60 (0.2-1.3) mg/dL AST 27 (17-59) U/L ALT 26 (0-50) U/L Alkaline Phosphatase 89 (38-126) U/L Troponin I (0.000-0.034) ng/mL Serum Total Protein 6.6 (6.3-8.2) g/dL Albumin 3.6 (3.5-5.0) g/dL - Progress Progress Note: 03/16/23 19:[address] Serrano 03/16/23 19:[address] directly from ambulance CT wo evidence of acute CVA CTA head/neck ordered Tele-neuro consult ordered Pt started to rapidly regain strength RUE/RLE Neuro consult stated that pt probably had a TIA and would need MRI/MRA Pt's family was waiting at [place] and arrived later. Stated that pt was at baseline Pt is a DNR All lab results reviewed and shared w family CT/CTA results reviewed and shared w family Counseled pt/family regarding: lab results, diagnosis, rad results Medical Desision Making - Independent Historian Additional History obtained from: Family - Discussion of managment Care discussed with:: hospitalist Reviewed:: Test results, Need for additional workup Agreed on:: Treatment plan, need for follow-up, place in obs Will see patient: in hospital - Diagnostic Testing Diagnostic test were ordered, analyzed, and reviewed by me: Yes Radiological Interpretation: Reviewed by me, Discussed w/ radiologist - Risk of complications The pt has a high risk of morbidity or mortality based on: Decision regarding hospitilization or escalation of hosp level of care - Departure Departure Disposition: Observation Clinical Impression: TIA (transient ischemic attack) Condition: Stable Critical Care Time: Yes Critical Care Time(excluding separately billable procedures): Critical 30-74 mins Referrals: CHLOÉ CARABALLO [Primary Care Provider] - Follow up/PCP as directed Instructions: Transient Ischemic Attack (DC)
--- NOTE | 2023-03-16 16:35 | XRAY ---
Indication: Weakness. Stroke. Conventional contrast enhanced CTA neck performed using 80 cc Isovue 370 contrast. 2-D sagittal and coronal reformatted images obtained. Additional 3-D reformatted images obtained using a separate workstation. Comparison: None Visualized aortic arch demonstrates anatomic variant for bovine arch. Right carotid circulation demonstrates widely patent common carotid, carotid bulb, internal carotid, and external carotid arteries with punctate eccentric calcification at the level of the bulb. Examination of the left carotid circulation demonstrates widely patent common carotid artery. Very minimal calcifications at the level of the bulb and lesser degree origin external carotid and proximal internal carotid arteries without critical stenosis/obstruction. Vertebral arteries are bilaterally patent with the left slightly larger in caliber. Visualized noncontrasted soft tissues demonstrates a few subcentimeter cervical and submandibular nodes bilaterally. No pathologic lymphadenopathy. Thyroid gland enhances homogeneously. Supra and infraglottic airway widely patent. Normal epiglottis. Patient is edentulous. Osseous structures intact with osteopenia and minimal degenerative changes throughout the cervical spine. Lung apices clear. Impression: Tiny arteriosclerotic calcifications left/right carotid bulb, origin left external carotid, and proximal left internal carotid arteries. Remaining CTA neck with contrast exam is negative.
--- NOTE | 2023-03-16 16:39 | XRAY ---
Indication: Weakness. Stroke. Conventional contrast enhanced CTA head performed using 80 cc Isovue 370 contrast. 2-D sagittal and coronal reformatted images obtained. Additional 3-D reformatted images obtained using a separate workstation. Comparison: MRA brain September 21, 2022. Distal internal carotid arteries are bilaterally symmetric without critical stenosis/obstruction or AV malformation. Normal carotid terminus With normal branching A1 and M1 segments bilaterally. Visualized anterior cerebral, middle cerebral, anterior communicating, and posterior communicating arteries are normal in CTA appearance. Incidental anatomic variant for origin left posterior cerebral artery. Posterior circulation demonstrates normal CTA appearance to the basilar, left/right posterior cerebral, left/right superior cerebellar, and left/right anterior-inferior cerebellar arteries. Venous sinuses/drainage unremarkable. No abnormal enhancing intra or extra-axial mass. Impression: Continued negative CTA head with contrast exam.
[2023-03-16] MEDS ORDERED: TYLENOL 325 MG PO PRN (19:46)
[2023-03-16] MEDS ORDERED: ZOFRAN ODT 4 MG PO PRN (19:49)
--- NOTE | 2023-03-16 19:58 | PCM.HP ---
History of Present Illness - Chief Complaint Chief Complaint: TIA History of Present Illness: is a 67 year old male with hx of CVAs x 2 with tPA x 2, HTN, DMII, Hep C, Chronic back pain, ostearthritis here with c/o right sided weakness. He was at the grocery store and when he reached up to get something, he became weak on his entire right side. He denies syncope, speech problem. Did have right sided facial drooping. Tele-neuro consulted and recommended CTA which was eseentially negative, along with his CT brain. Bringing him in for MRI tomorrow. Family members arrived later in the ER. Pt was improving, and they asaid his weakness is back to his previous baseline. - Review of Systems Constitutional: No Symptoms Eyes: No Symptoms Ears, Nose, & Throat: No Symptoms Respiratory: No Symptoms Cardiac: No Symptoms Abdominal/Gastrointestinal: No Symptoms Genitourinary Symptoms: No Symptoms Musculoskeletal: Arthralgias, Back Pain Skin: No Symptoms Neurological: Focal Weakness Psychological: No Symptoms Endocrine: No Symptoms Hematologic/Lymphatic: No Symptoms Immunological/Allergic: No Symptoms Medications & Allergies Home Medications: Home Medication List Fluoxetine HCl 20 mg [Prozac 20 MG] 20 mg PO DAILY 10/19/12 [History Confirmed 03/16/23] Carvedilol 12.5 mg [Coreg 12.5 mg] 3.125 mg PO BID 08/15/17 [History Confirmed 03/16/23] Ropinirole HCl 1 mg PO TID 08/15/17 [History Confirmed 03/16/23] Atorvastatin Calcium 40 mg PO DAILY 09/21/22 [History Confirmed 03/16/23] Esomeprazole Magnesium 40 mg PO DAILY 09/21/22 [History Confirmed 03/16/23] lisinopriL [Zestril] 2.5 mg PO DAILY 09/21/22 [History Confirmed 03/16/23] Allergies/Adverse Reactions: Allergies Allergy/AdvReac Type Severity Reaction Status Date / Time No Known Drug Allergies Allergy Verified 03/16/23 13:35 - Past Medical History Past Medical History: Yes Neurological History: Migraines, Stroke ENT History: No Pertinent History Cardiac History: Hypertension, Myocardial Infarction (MA) Respiratory History: No Pertinent History Endocrine Medical History: Diabetes Type II Musculoskelatal History: Fractures, Osteoarthritis GI Medical History: Hepatitis History: No Pertinent History Pyscho-Social History: No Pertinent History Male Reproductive Disorders: No Pertinent History Comment: HEPATITIS C, CHRONIC PAIN SYNDROME, DYSPHAGIA. SX HX: BACK SX X 5, RIGHT SHOULDER REPLACEMENT, RIGHT KNEE REPLACEMENT, GASTRIC BYPASS 2009, Dislipidemia - Past Surgical History Past Surgical History: Yes Neuro Surgical History: No Pertinent History Cardiac History: Cardiac Catheterization Respiratory Surgery: No Pertinent History GI Surgical History: Other Genitourinary Surgical Hx: No Pertinent History Musculskeletal Surgical Hx: Orthopedic Surgery, Other Male Surgical History: No Pertinent History Other Surgical History: bariatric surgery 5yrs ago 3 back surgeries, left knee replacement,2 nasal surgeries, left elbow, several scopes of different joints. joint replacement in foot. - Social History Smoking Status: Never smoker Exposure to second hand smoke: No Alcohol: None Drug Use: none Significant Family History: no pertinent family hx - Physical Exam Vital Signs: Vital Signs - 24 hr Temp Pulse Resp BP BP Pulse Ox 03/16/23 19:36 95 03/16/23 19:30 65 18 129/86 96 03/16/23 19:00 67 20 124/78 98 03/16/23 18:30 69 16 121/78 96 03/16/23 18:00 63 14 125/82 03/16/23 17:30 59 L 12 140/79 96 03/16/23 17:00 53 L 13 136/80 94 L 03/16/23 16:00 56 L 19 132/84 93 L 03/16/23 15:30 56 L 14 122/75 95 03/16/23 15:28 56 L 15 118/78 96 03/16/23 15:20 58 L 13 95 03/16/23 15:13 56 L 9 L 96 03/16/23 14:30 123/70 03/16/23 14:29 59 L 16 117/79 03/16/23 14:18 61 16 133/70 95 03/16/23 14:00 60 11 L 133/70 03/16/23 13:35 98.3 F 64 11 L 117/75 95 General Appearance: no apparent distress Neurologic Exam: alert, oriented x 3, cooperative, normal mood/affect Eye Exam: PERRL/EOMI, eyes nml inspection Ears, Nose, Throat Exam: normal ENT inspection Neck Exam: normal inspection, non-tender, supple, full range of motion Respiratory Exam: normal breath sounds, lungs clear Cardiovascular Exam: regular rate/rhythm, normal heart sounds Gastrointestinal/Abdomen Exam: soft, normal bowel sounds Rectal Exam: deferred Back Exam: normal inspection Extremity Exam: normal inspection, normal range of motion Skin Exam: normal color, warm, dry Results - Labs Lab/Micro Results: Lab Results-Last 24 Hours 03/16/23 03/16/23 03/16/23 Range/Units 13:48 13:48 13:48 WBC 5.5 (4.0-10.5) x10^3/uL RBC 4.91 (4.1-5.6) x10^6/uL Hgb 14.1 (12.5-18.0) g/dL Hct 44.0 (42-50) % MCV 89.6 (78-100) fL MCH 28.7 (26-32) pg MCHC 32.0 (32-36) g/dL RDW 12.4 (11.5-14.0) % Plt Count 368 (150-450) x10^3/uL MPV 8.8 (7.5-11.0) fL Gran % 65.9 (36.0-66.0) % Immature Gran % (Auto) 0.5 H (0.00-0.4) % Nucleat RBC Rel Count 0.0 (0.00-0.1) % Eos # (Auto) 0.12 (0-0.5) x10^3/uL Immature Gran # (Auto) 0.03 (0.00-0.03) x10^3u/L Absolute Lymphs (auto) 1.11 (1.0-4.6) x10^3/uL Absolute Monos (auto) 0.57 (0.0-1.3) x10^3/uL Absolute Nucleated RBC 0.00 (0.00-0.01) x10^3u/L Lymphocytes % 20.3 L (24.0-44.0) % Monocytes % 10.4 (0.0-12.0) % Eosinophils % 2.2 (0.00-5.0) % Basophils % 0.7 (0.0-0.4) % Absolute Granulocytes 3.61 (1.4-6.9) x10^3/uL Basophils # 0.04 (0-0.4) x10^3/uL PT 10.4 (9.4-12.5) SECONDS INR 0.95 (0.8-3.0) APTT 26.5 (25.1-36.5) SECONDS Sodium 142 (137-145) mmol/L Potassium 3.4 L (3.5-5.1) mmol/L Chloride 104 (98-107) mmol/L Carbon Dioxide 27 (22-30) mmol/L Anion Gap 13.9 (5-15) MEQ/L BUN 9 (9-20) mg/dL Creatinine 0.54 L (0.66-1.25) mg/dL Estimated GFR > 60.0 ML/MIN Glucose 106 (74-106) mg/dL Calcium 8.4 (8.4-10.2) mg/dL Total Bilirubin 0.60 (0.2-1.3) mg/dL AST 27 (17-59) U/L ALT 26 (0-50) U/L Alkaline Phosphatase 89 (38-126) U/L Troponin I (0.000-0.034) ng/mL Serum Total Protein 6.6 (6.3-8.2) g/dL Albumin 3.6 (3.5-5.0) g/dL 03/16/23 03/16/23 Range/Units 13:48 17:22 WBC (4.0-10.5) x10^3/uL RBC (4.1-5.6) x10^6/uL Hgb (12.5-18.0) g/dL Hct (42-50) % MCV (78-100) fL MCH (26-32) pg MCHC (32-36) g/dL RDW (11.5-14.0) % Plt Count (150-450) x10^3/uL MPV (7.5-11.0) fL Gran % (36.0-66.0) % Immature Gran % (Auto) (0.00-0.4) % Nucleat RBC Rel Count (0.00-0.1) % Eos # (Auto) (0-0.5) x10^3/uL Immature Gran # (Auto) (0.00-0.03) x10^3u/L Absolute Lymphs (auto) (1.0-4.6) x10^3/uL Absolute Monos (auto) (0.0-1.3) x10^3/uL Absolute Nucleated RBC (0.00-0.01) x10^3u/L Lymphocytes % (24.0-44.0) % Monocytes % (0.0-12.0) % Eosinophils % (0.00-5.0) % Basophils % (0.0-0.4) % Absolute Granulocytes (1.4-6.9) x10^3/uL Basophils # (0-0.4) x10^3/uL PT (9.4-12.5) SECONDS INR (0.8-3.0) APTT (25.1-36.5) SECONDS Sodium (137-145) mmol/L Potassium (3.5-5.1) mmol/L Chloride (98-107) mmol/L Carbon Dioxide (22-30) mmol/L Anion Gap (5-15) MEQ/L BUN (9-20) mg/dL Creatinine (0.66-1.25) mg/dL Estimated GFR ML/MIN Glucose (74-106) mg/dL Calcium (8.4-10.2) mg/dL Total Bilirubin (0.2-1.3) mg/dL AST (17-59) U/L ALT (0-50) U/L Alkaline Phosphatase (38-126) U/L Troponin I < 0.012 < 0.012 (0.000-0.034) ng/mL Serum Total Protein (6.3-8.2) g/dL Albumin (3.5-5.0) g/dL - Radiology Impressions Radiology Exams & Impressions: Radiology Procedures Category Date Time Status CT ANGIOGRAPHY NECK [CT] Stat Exams 03/16/23 13:41 Completed CTA HEAD W AND/OR WO CONTRAST [CT] Stat Exams 03/16/23 13:41 Completed HEAD WITHOUT CONTRAST [CT] Stat Exams 03/16/23 13:18 Completed MRI BRAIN W/O CONTRAST [MRI] Routine Exams 03/17/23 08:00 Ordered Assessment/Plan (1) TIA (transient ischemic attack) Current Visit: Yes Status: Acute Assessment & Plan: Right sided weakness, resolved spontaneously. Has hx of CVAs x 2, s/p tPA x 2. Risk factors control - DM, HHTN, HLP. Tele-neuro on case. CT and CTA unremarkable. Planning MRI brain tomorrow. Continue aspirin. Neuro to decide if an anti-plt above an aspirin a day is call for - consider plavix, etc given his hx of CVAs. Again, would defer to neuro for this guidance NPO for now until bedside swallow can be done to rule-out aspiration risk Code(s): G45.9 - TRANSIENT CEREBRAL ISCHEMIC ATTACK, UNSPECIFIED (2) Diabetes mellitus type II, controlled Current Visit: No Status: Chronic Qualifiers: Diabetes mellitus termite treater insulin use: without correction use Diabetes mellitus complication status: with other specified complication Qualified Code(s): E11.69 - Type 2 diabetes mellitus with other specified complication Assessment & Plan: Will check A1C. SSI, accucheck. ADA diet once cleared to take oral Code(s): E11.9 - TYPE 2 DIABETES MELLITUS WITHOUT COMPLICATIONS (3) HTN (hypertension) Current Visit: No Status: Chronic Qualifiers: Hypertension type: primary hypertension Qualified Code(s): I10 - Essential (primary) hypertension Assessment & Plan: BP is controlled. Continue Lisinopril here. Avoid hypotension Code(s): I10 - ESSENTIAL (PRIMARY) HYPERTENSION (4) CAD (coronary artery disease) Current Visit: No Status: Chronic Qualifiers: Coronary Disease-Associated Artery/Lesion type: [place] artery [place] vs. transplanted heart: [place] heart Associated angina: without angina Qualified Code(s): I25.10 - Atherosclerotic heart disease of [place] coronary artery without angina pectoris Assessment & Plan: Trops x 2 negative. No active symptoms. Code(s): I25.10 - ATHSCL HEART DISEASE OF [place] CORONARY ARTERY W/O ANG PCTRS (5) Hepatitis C Current Visit: No Status: Chronic Qualifiers: Viral hepatitis chronicity: unspecified Hepatic coma status: without hepatic coma Qualified Code(s): B19.20 - Unspecified viral hepatitis C without hepatic coma Assessment & Plan: Hx of Hep C. No active issue for now (6) Hyperlipidemia Current Visit: Yes Status: Acute Code(s): E78.5 - HYPERLIPIDEMIA, UNSPECIFIED Telemedicine Encounter - Telemedicine Encounter Telemedicine Encounter: The entirety of this encounter was performed via Telemedicine" The pt gave verbal consent to have this telemedicine visit
[2023-03-16] MEDS ORDERED: Sodium Chloride 0.9% 1000 ML 1,000 ML IV SCH (20:00)
[2023-03-16] MEDS ORDERED: HUMALOG SQ PRN (20:03)
[2023-03-16] MEDS ORDERED: NON-FORMULARY ITEM (Ropinirole Hcl [Ropinirole Hcl] 1 MG Tablet) PO SCH (22:00)
[2023-03-16] MEDS ORDERED: COREG 12.5 MG PO SCH (22:00)
[2023-03-16] MEDS ORDERED: REQUIP 2MG TAB ONE (22:13)
[2023-03-16] MEDS ORDERED: Coreg 3.125 MG ONE (22:13)
[2023-03-16] MEDS: Dextrose 5% -0.45 NaCl 1000 ML 1,000 ML IV SCH (22:15)
[2023-03-17 04:52] LABS: Hematocrit 42.4 % (42-50); Mean Cell Volume 87.6 fL (78-100); Mean Corpuscular Hemoglobin 28.9 pg (26-32); Mean Platelet Volume 8.7 fL (7.5-11.0); Platelet Count 385 x10^3/uL (150-450); Red Blood Count 4.84 x10^6/uL (4.1-5.6); Red Cell Distribution Width 12.6 % (11.5-14.0); White Blood Count 9.1 x10^3/uL (4.0-10.5)
[2023-03-17 05:15] LABS: ALBUMIN 3.4 g/dL (3.5-5.0); ALKALINE PHOSPHATASE 91 U/L (38-126); ANION GAP 10.2 MEQ/L (5-15); BLOOD UREA NITROGEN 7 mg/dL (9-20); CHLORIDE 107 mmol/L (98-107); Calcium 8.2 mg/dL (8.4-10.2); Carbon Dioxide 27 mmol/L (22-30); Creatinine 1 0.56 mg/dL (0.66-1.25); EST GLOMERULAR FILTRATION RATE > 60.0 ML/MIN; Glucose 111 mg/dL (74-106); Potassium 3.3 mmol/L (3.5-5.1); SGOT/AST 22 U/L (17-59); SGPT/ALT 23 U/L (0-50); SODIUM 140 mmol/L (137-145); Total Protein 6.1 g/dL (6.3-8.2)
[2023-03-17 06:41] VITALS: RESP 16
[2023-03-17 08:26] LABS: INR 1.01 (0.8-3.0); PTT 29.6 SECONDS (25.1-36.5)
[2023-03-17 09:16] LABS: Risk Ratio 3.6
[2023-03-17] MEDS: Requip 0.5 MG PO SCH ×2 (09:56→14:26)
[2023-03-17] MEDS ORDERED: Prozac 20 MG PO SCH (10:00)
[2023-03-17] MEDS ORDERED: Protonix 40MG Tablet PO SCH (10:00)
[2023-03-17] MEDS ORDERED: ZOCOR 20MG PO SCH (10:00)
[2023-03-17] MEDS ORDERED: ENOXAPARIN SODIUM SQ SCH (10:00)
[2023-03-17] MEDS ORDERED: Coreg 3.125 MG PO SCH (10:00)
[2023-03-17] MEDS ORDERED: Zestril 5 MG PO SCH (10:00)
[2023-03-17] MEDS: Dextrose 5% -0.45 NaCl 1000 ML 1,000 ML IV SCH (10:03)
[2023-03-17 12:09] LABS: Appearance CLOUDY (CLEAR); Bilirubin NEGATIVE (NEGATIVE); Glucose NEGATIVE (NEGATIVE); Ketones NEGATIVE (NEGATIVE); Protein,Urine Dip NEGATIVE (Negative); RBC TRACE NON-HEM Ery/ul (0-5); Specific Gravity 1.015 (1.005-1.025); Urobilinogen 1 mg/dL (0-1)
[2023-03-17 12:10] LABS: Nitrite POSITIVE (NEGATIVE)
[2023-03-17 12:13] LABS: ADD URINE CULTURE? YES (NO); Bacteria Many /HPF (None Seen); Epithelial Cells None Seen /HPF (None Seen); Hyaline Casts NONE SEEN /LPF (0-2); RBC 0-2 /HPF (0-5); WBC >100 /HPF (0-5)
[2023-03-17] MEDS: Klor Con PO SCH ×3 (12:37→16:21)
[2023-03-17] MEDS ORDERED: ROCEPHIN 2 Gm-D5w 50ML BAG** 2 G/50 ML IVPB IV SCH (13:00)
--- NOTE | 2023-03-17 13:55 | XRAY ---
Indication: TIA symptoms. Sagittal, coronal, and axial MRI brain performed without contrast using T1, T2, FLAIR, diffusion, and ADC sequences. Comparison: September 21, 2022 There is again age-appropriate global atrophy and mild periventricular degenerative micro-ischemia bilaterally. Grossly stable old left temporoparietal infarct with encephalomalacia and gliosis. Left parietal lobe now demonstrates multifocal small foci of restricted signal, largest posteriorly measuring 1 cm. Additional new multifocal petechial restricted signal near the left vertex. No acute intracranial hemorrhage,, mass effect, or midline shifting. Fourth ventricle is midline without hydrocephalus. Normal flow void signal within the major intracerebral circulation. Normal appearing craniocervical junction and sella turcica. Paranasal sinuses clear. Impression: 1. New multifocal centimeter/subcentimeter acute micro-ischemia left parietal lobe. No acute hemorrhage/mass effect. 2. Grossly stable atrophy, degenerative micro-ischemia, and large old left temporoparietal infarct.
[2023-03-17 16:09] VITALS: BP 135/86; PULSE 65; TEMP 97.3; O2SAT 98
--- NOTE | 2023-03-17 16:24 | PCM.DS ---
Discharge Summary Date of Admission: 03/16/23 19:45 Date of Discharge: 03/17/23 Admitting Physician: FRANK BLACK DO Primary Care Provider: CHLOÉ CARABALLO Allergies Allergies No Known Drug Allergies Allergy (Verified 03/16/23 13:35) Hospital Summary - Hospital Course Hospital Course: is a 67 year old male with hx of CVAs x 2 with tPA x 2, HTN, DMII, Hep C, Chronic back pain, osteoarthritis who presented 03/16/23 to ED with c/o right sided weakness. He was at the grocery store and when he reached up to get something, he became weak on his entire right side. He denies syncope, speech problem. Did have right sided facial drooping. Tele-neuro consulted and recommended CTA which was essentially negative, along with his CT brain. MRI is showing 1. New multifocal centimeter/subcentimeter acute micro-ischemia left parietal lobe. No acute hemorrhage/mass effect.2. Grossly stable atrophy, degenerative micro-ischemia, and large old left temporoparietal infarct. Preliminary lab work unremarkable with the exception of the urinalysis which is suspicious for infection. Patient given Rocephin 2g IV while IP. Will discharge on TMP/SMX DS x 5 days with close follow up from PCP. Transient right arm/leg weakness has resolved. Patient at baseline has significant aphasia which is unchanged. Tele-Neuro recommends further cardiac evaluation OP with bubble study, consider longer-term cardiac monitoring with zio monitor and the ini tiation of DAPT for 21 days. Patient's to call with information on Administrative Liaison as well as Neurologist so that I am able to send records as well as try to move up neurology appointment. New Diagnosis: CVA/UTI New Medications: DAPT ASA/Plavix, continue home meds, TMP/SMX DS for UTI Follow Up: PCP/Cards/neurology Results pending: Urine culture, will follow and call with any med changes Latest Assessment & Plan (1) TIA (transient ischemic attack) Current Visit: Yes Status: Acute Assessment & Plan: Right sided weakness, resolved spontaneously. Has hx of CVAs x 2, s/p tPA x 2. R isk factors control - DM, HHTN, HLP. Tele-neuro on case. CT and CTA unremarkable. Planning MRI brain tomorrow. Continue aspirin. Neuro to decide if an anti-plt above an aspirin a day is call for - consider plavix, etc given his hx of CVAs. Again, would defer to neuro for this guidance NPO for now until bedside swallow can be done to rule-out aspiration risk Code(s): G45.9 - TRANSIENT CEREBRAL ISCHEMIC ATTACK, UNSPECIFIED (2) Diabetes mellitus type II, controlled Current Visit: No Status: Chronic Qualifiers: Diabetes mellitus intermodal customer service insulin use: without detention use Diabetes mellitus complication status: with other specified complication Qualified Code(s): E11.69 - Type 2 diabetes mellitus with other specified complication Assessment & Plan: Will check A1C. SSI, accucheck. ADA diet once cleared to take oral Code(s): E11.9 - TYPE 2 DIABETES MELLITUS WITHOUT COMPLICATIONS (3) HTN (hypertension) Current Visit: No Status: Chronic Qualifiers: Hypertension type: primary hypertension Qualified Code(s): I10 - Essential (primary) hypertension Assessment & Plan: BP is controlled. Continue Lisinopril here. Avoid hypotension Code(s): I10 - ESSENTIAL (PRIMARY) HYPERTENSION (4) CAD (coronary artery disease) Current Visit: No Status: Chronic Qualifiers: Coronary Disease-Associated Artery/Lesion type: [place] artery [place] vs. transplanted heart: [place] heart Associated angina: without angina Qualified Code(s): I25.10 - Atherosclerotic heart disease of [place] coronary artery without angina pectoris Assessment & Plan: Trops x 2 negative. No active symptoms. Code(s): I25.10 - ATHSCL HEART DISEASE OF [place] CORONARY ARTERY W/O ANG PCTRS (5) Hepatitis C Current Visit: No Status: Chronic Qualifiers: Viral hepatitis chronicity: unspecified Hepatic coma status: without hepatic coma Qualified Code(s): B19.20 - Unspecified viral hepatitis C without hepatic coma Assessment & Plan: Hx of Hep C. No active issue for now (6) Hyperlipidemia Current Visit: Yes Status: Acute Code(s): E78.5 - HYPERLIPIDEMIA, UNSPECIFIED Telemedicine Encounter I spent greater than 45 minutes [id number] with the patient on the day of discharge performing discharge exam, discussing hospital stay and discharge instructions with patient and caregivers, preparation of discharge records, prescriptions & referral forms and addressing any questions/concerns the patient had as documented above. - Vitals & Intake/Output Vital Signs: Vital Signs Temperature 97.2 F 03/17/23 11:50 Pulse Rate 60 03/17/23 11:50 Respiratory Rate 16 03/17/23 11:50 Blood Pressure 128/61 03/17/23 11:50 O2 Sat by Pulse Oximetry 91 L 03/17/23 11:50 Intake & Output: Intake & Output 03/15/23 03/16/23 03/17/23 03/18/23 11:59 11:59 11:59 11:59 Intake Total 463 120 Output Total 1175 Balance -712 120 Weight 106.9 kg - Lab Result Diagrams: 03/17/23 04:36 03/17/23 16:48 Lab Results-Last 24 Hrs: Lab Results-Last 24 Hours 03/16/23 03/16/23 03/16/23 Range/Units 17:22 21:12 21:21 WBC (4.0-10.5) x10^3/uL RBC (4.1-5.6) x10^6/uL Hgb (12.5-18.0) g/dL Hct (42-50) % MCV (78-100) fL MCH (26-32) pg MCHC (32-36) g/dL RDW (11.5-14.0) % Plt Count (150-450) x10^3/uL MPV (7.5-11.0) fL PT (9.4-12.5) SECONDS INR (0.8-3.0) APTT (25.1-36.5) SECONDS Sodium (137-145) mmol/L Potassium (3.5-5.1) mmol/L Chloride (98-107) mmol/L Carbon Dioxide (22-30) mmol/L Anion Gap (5-15) MEQ/L BUN (9-20) mg/dL Creatinine (0.66-1.25) mg/dL Estimated GFR ML/MIN Glucose (74-106) mg/dL POC Glucometer 142 H (74 to 106) mg/dL Hemoglobin A1c (4.5-6.0) % Calcium (8.4-10.2) mg/dL Magnesium (1.6-2.3) mg/dL Total Bilirubin (0.2-1.3) mg/dL AST (17-59) U/L ALT (0-50) U/L Alkaline Phosphatase (38-126) U/L Troponin I < 0.012 < 0.012 (0.000-0.034) ng/mL Serum Total Protein (6.3-8.2) g/dL Albumin (3.5-5.0) g/dL Triglycerides (30-150) mg/dL Cholesterol (50-200) mg/dL LDL Cholesterol (30-100) mg/dL HDL Cholesterol (40-60) mg/dL Heart Disease Risk Ratio Urine Color (YELLOW) Urine Appearance (CLEAR) Urine pH (5-6) Ur Specific [place] (1.005-1.025) POC Urine Protein Conf (Negative) Urine Ketones (NEGATIVE) Urine Nitrite (NEGATIVE) Urine Bilirubin (NEGATIVE) Urine Urobilinogen (0-1) mg/dL Urine Leukocytes (NEGATIVE) U Hyaline Cast (Auto) (0-2) /LPF Urine RBC (0-5) Stanley/ul Urine Microscopic RBC (0-5) /HPF Urine Microscopic WBC (0-5) /HPF Ur Epithelial Cells (None Seen) /HPF Urine Bacteria (None Seen) /HPF Urine Culture Reflexed (NO) Urine Glucose (NEGATIVE) mg/dL 03/17/23 03/17/23 03/17/23 Range/Units 04:36 04:36 04:36 WBC 9.1 (4.0-10.5) x10^3/uL RBC 4.84 (4.1-5.6) x10^6/uL Hgb 14.0 (12.5-18.0) g/dL Hct 42.4 (42-50) % MCV 87.6 (78-100) fL MCH 28.9 (26-32) pg MCHC 33.0 (32-36) g/dL RDW 12.6 (11.5-14.0) % Plt Count 385 (150-450) x10^3/uL MPV 8.7 (7.5-11.0) fL PT (9.4-12.5) SECONDS INR (0.8-3.0) APTT (25.1-36.5) SECONDS Sodium 140 (137-145) mmol/L Potassium 3.3 L (3.5-5.1) mmol/L Chloride 107 (98-107) mmol/L Carbon Dioxide 27 (22-30) mmol/L Anion Gap 10.2 (5-15) MEQ/L BUN 7 L (9-20) mg/dL Creatinine 0.56 L (0.66-1.25) mg/dL Estimated GFR > 60.0 ML/MIN Glucose 111 H (74-106) mg/dL POC Glucometer (74 to 106) mg/dL Hemoglobin A1c (4.5-6.0) % Calcium 8.2 L (8.4-10.2) mg/dL Magnesium (1.6-2.3) mg/dL Total Bilirubin 0.60 (0.2-1.3) mg/dL AST 22 (17-59) U/L ALT 23 (0-50) U/L Alkaline Phosphatase 91 (38-126) U/L Troponin I (0.000-0.034) ng/mL Serum Total Protein 6.1 L (6.3-8.2) g/dL Albumin 3.4 L (3.5-5.0) g/dL Triglycerides 80 (30-150) mg/dL Cholesterol 104 (50-200) mg/dL LDL Cholesterol 63 (30-100) mg/dL HDL Cholesterol 29 L (40-60) mg/dL Heart Disease Risk Ratio 3.6 Urine Color (YELLOW) Urine Appearance (CLEAR) Urine pH (5-6) Ur Specific [place] (1.005-1.025) POC Urine Protein Conf (Negative) Urine Ketones (NEGATIVE) Urine Nitrite (NEGATIVE) Urine Bilirubin (NEGATIVE) Urine Urobilinogen (0-1) mg/dL Urine Leukocytes (NEGATIVE) U Hyaline Cast (Auto) (0-2) /LPF Urine RBC (0-5) Stanley/ul Urine Microscopic RBC (0-5) /HPF Urine Microscopic WBC (0-5) /HPF Ur Epithelial Cells (None Seen) /HPF Urine Bacteria (None Seen) /HPF Urine Culture Reflexed (NO) Urine Glucose (NEGATIVE) mg/dL 03/17/23 03/17/23 03/17/23 Range/Units 04:36 04:36 07:07 WBC (4.0-10.5) x10^3/uL RBC (4.1-5.6) x10^6/uL Hgb (12.5-18.0) g/dL Hct (42-50) % MCV (78-100) fL MCH (26-32) pg MCHC (32-36) g/dL RDW (11.5-14.0) % Plt Count (150-450) x10^3/uL MPV (7.5-11.0) fL PT 11.0 (9.4-12.5) SECONDS INR 1.01 (0.8-3.0) APTT 29.6 (25.1-36.5) SECONDS Sodium (137-145) mmol/L Potassium (3.5-5.1) mmol/L Chloride (98-107) mmol/L Carbon Dioxide (22-30) mmol/L Anion Gap (5-15) MEQ/L BUN (9-20) mg/dL Creatinine (0.66-1.25) mg/dL Estimated GFR ML/MIN Glucose (74-106) mg/dL POC Glucometer 126 H (74 to 106) mg/dL Hemoglobin A1c 5.99 (4.5-6.0) % Calcium (8.4-10.2) mg/dL Magnesium (1.6-2.3) mg/dL Total Bilirubin (0.2-1.3) mg/dL AST (17-59) U/L ALT (0-50) U/L Alkaline Phosphatase (38-126) U/L Troponin I (0.000-0.034) ng/mL Serum Total Protein (6.3-8.2) g/dL Albumin (3.5-5.0) g/dL Triglycerides (30-150) mg/dL Cholesterol (50-200) mg/dL LDL Cholesterol (30-100) mg/dL HDL Cholesterol (40-60) mg/dL Heart Disease Risk Ratio Urine Color (YELLOW) Urine Appearance (CLEAR) Urine pH (5-6) Ur Specific [place] (1.005-1.025) POC Urine Protein Conf (Negative) Urine Ketones (NEGATIVE) Urine Nitrite (NEGATIVE) Urine Bilirubin (NEGATIVE) Urine Urobilinogen (0-1) mg/dL Urine Leukocytes (NEGATIVE) U Hyaline Cast (Auto) (0-2) /LPF Urine RBC (0-5) Stanley/ul Urine Microscopic RBC (0-5) /HPF Urine Microscopic WBC (0-5) /HPF Ur Epithelial Cells (None Seen) /HPF Urine Bacteria (None Seen) /HPF Urine Culture Reflexed (NO) Urine Glucose (NEGATIVE) mg/dL 1003/17/23 03/17/23 Range/Units 08:07 11:46 12:28 WBC (4.0-10.5) x10^3/uL RBC (4.1-5.6) x10^6/uL Hgb (12.5-18.0) g/dL Hct (42-50) % MCV (78-100) fL MCH (26-32) pg MCHC (32-36) g/dL RDW (11.5-14.0) % Plt Count (150-450) x10^3/uL MPV (7.5-11.0) fL PT (9.4-12.5) SECONDS INR (0.8-3.0) APTT (25.1-36.5) SECONDS Sodium (137-145) mmol/L Potassium 3.9 (3.5-5.1) mmol/L Chloride (98-107) mmol/L Carbon Dioxide (22-30) mmol/L Anion Gap (5-15) MEQ/L BUN (9-20) mg/dL Creatinine (0.66-1.25) mg/dL Estimated GFR ML/MIN Glucose (74-106) mg/dL POC Glucometer 115 H (74 to 106) mg/dL Hemoglobin A1c (4.5-6.0) % Calcium (8.4-10.2) mg/dL Magnesium (1.6-2.3) mg/dL Total Bilirubin (0.2-1.3) mg/dL AST (17-59) U/L ALT (0-50) U/L Alkaline Phosphatase (38-126) U/L Troponin I (0.000-0.034) ng/mL Serum Total Protein (6.3-8.2) g/dL Albumin (3.5-5.0) g/dL Triglycerides (30-150) mg/dL Cholesterol (50-200) mg/dL LDL Cholesterol (30-100) mg/dL HDL Cholesterol (40-60) mg/dL Heart Disease Risk Ratio Urine Color YELLOW (YELLOW) Urine Appearance CLOUDY A (CLEAR) Urine pH 7.0 (5-6) Ur Specific [place] 1.015 (1.005-1.025) POC Urine Protein Conf NEGATIVE (Negative) Urine Ketones NEGATIVE (NEGATIVE) Urine Nitrite POSITIVE A (NEGATIVE) Urine Bilirubin NEGATIVE (NEGATIVE) Urine Urobilinogen 1 A (0-1) mg/dL Urine Leukocytes MODERATE A (NEGATIVE) U Hyaline Cast (Auto) NONE SEEN (0-2) /LPF Urine RBC TRACE NON-HEM A (0-5) Stanley/ul Urine Microscopic RBC 0-2 (0-5) /HPF Urine Microscopic WBC >100 A (0-5) /HPF Ur Epithelial Cells None Seen (None Seen) /HPF Urine Bacteria Many A (None Seen) /HPF Urine Culture Reflexed YES (NO) Urine Glucose NEGATIVE (NEGATIVE) mg/dL 03/17/23 Range/Units 12:28 WBC (4.0-10.5) x10^3/uL RBC (4.1-5.6) x10^6/uL Hgb (12.5-18.0) g/dL Hct (42-50) % MCV (78-100) fL MCH (26-32) pg MCHC (32-36) g/dL RDW (11.5-14.0) % Plt Count (150-450) x10^3/uL MPV (7.5-11.0) fL PT (9.4-12.5) SECONDS INR (0.8-3.0) APTT (25.1-36.5) SECONDS Sodium (137-145) mmol/L Potassium (3.5-5.1) mmol/L Chloride (98-107) mmol/L Carbon Dioxide (22-30) mmol/L Anion Gap (5-15) MEQ/L BUN (9-20) mg/dL Creatinine (0.66-1.25) mg/dL Estimated GFR ML/MIN Glucose (74-106) mg/dL POC Glucometer (74 to 106) mg/dL Hemoglobin A1c (4.5-6.0) % Calcium (8.4-10.2) mg/dL Magnesium 2.3 (1.6-2.3) mg/dL Total Bilirubin (0.2-1.3) mg/dL AST (17-59) U/L ALT (0-50) U/L Alkaline Phosphatase (38-126) U/L Troponin I (0.000-0.034) ng/mL Serum Total Protein (6.3-8.2) g/dL Albumin (3.5-5.0) g/dL Triglycerides (30-150) mg/dL Cholesterol (50-200) mg/dL LDL Cholesterol (30-100) mg/dL HDL Cholesterol (40-60) mg/dL Heart Disease Risk Ratio Urine Color (YELLOW) Urine Appearance (CLEAR) Urine pH (5-6) Ur Specific [place] (1.005-1.025) POC Urine Protein Conf (Negative) Urine Ketones (NEGATIVE) Urine Nitrite (NEGATIVE) Urine Bilirubin (NEGATIVE) Urine Urobilinogen (0-1) mg/dL Urine Leukocytes (NEGATIVE) U Hyaline Cast (Auto) (0-2) /LPF Urine RBC (0-5) Stanley/ul Urine Microscopic RBC (0-5) /HPF Urine Microscopic WBC (0-5) /HPF Ur Epithelial Cells (None Seen) /HPF Urine Bacteria (None Seen) /HPF Urine Culture Reflexed (NO) Urine Glucose (NEGATIVE) mg/dL Micro Results-Entire Visit: Accuchecks Date 03/17/23 Date 03/17/23 Date 03/16/23 Time 07:12 Time 21:25 - Radiology Exams Ordered Rad Exams-Entire Visit: Radiology Procedures Category Date Time Status CT ANGIOGRAPHY NECK [CT] Stat Exams 03/16/23 13:41 Completed CTA HEAD W AND/OR WO CONTRAST [CT] Stat Exams 03/16/23 13:41 Completed ECHO W/2D AND DOPPLER [US] Routine Exams 03/17/23 09:33 Taken HEAD WITHOUT CONTRAST [CT] Stat Exams 03/16/23 13:18 Completed MRI BRAIN W/O CONTRAST [MRI] Routine Exams 03/17/23 08:00 Completed - Procedures and Test Procedures and Tests throughout Hospitalization: Therapy Orders & Screens 03/16/23 19:46 PT Eval & Treat ( Order) ONCE Reason for Eval:: Right sided weakness Diagnosis: TIA 03/16/23 21:34 ST Screen per Nursing Assess ONCE Comment: Protocol Order Physician Instructions: Greater than [address] Admission Screening Reason For Exam: Triggered on Admission Diagnosis: TIA CVA/Dyshpagia/Aphasia: Yes Cognitive Deficits: No Dehydration/Nutrition Deficit: No Reflux: No Oral-Motor Difficulties: No Pneumonia: No Halfway Resident: No Total Points: 5 Final Diagnosis/Problem List - Final Discharge Diagnosis/Problem (1) CVA (cerebral vascular accident) Current Visit: No Status: Acute Code(s): I63.9 - CEREBRAL INFARCTION, UNSPECIFIED (2) TIA (transient ischemic attack) Current Visit: Yes Status: Acute Code(s): G45.9 - TRANSIENT CEREBRAL ISCHEMIC ATTACK, UNSPECIFIED (3) Hyperlipidemia Current Visit: Yes Status: Acute Code(s): E78.5 - HYPERLIPIDEMIA, UNSPECIFIED (4) UTI (urinary tract infection) Current Visit: Yes Status: Acute Code(s): N39.0 - URINARY TRACT INFECTION, SITE NOT SPECIFIED (5) CAD (coronary artery disease) Current Visit: No Status: Chronic Code(s): I25.10 - ATHSCL HEART DISEASE OF [place] CORONARY ARTERY W/O ANG PCTRS (6) Diabetes mellitus type II, controlled Current Visit: No Status: Chronic Code(s): E11.9 - TYPE 2 DIABETES MELLITUS WITHOUT COMPLICATIONS (7) HTN (hypertension) Current Visit: No Status: Chronic Code(s): I10 - ESSENTIAL (PRIMARY) HYPERTENSION - Discharge Disposition: Home, Self-Care Condition: Fair Prescriptions: New Sulfamethoxazole/Trimethoprim [Bactrim Ds Tablet] 1 each PO BID 10 Days #20 tablet Clopidogrel Bisulfate [Plavix] 75 mg PO DAILY 30 Days #30 tablet Continue Fluoxetine HCl 20 mg [Prozac 20 MG] 20 mg PO DAILY Ropinirole HCl 1 mg PO TID Carvedilol 12.5 mg [Coreg 12.5 mg] 3.125 mg PO BID lisinopriL [Zestril] 2.5 mg PO DAILY Esomeprazole Magnesium 40 mg PO DAILY Atorvastatin Calcium 40 mg PO DAILY Aspirin EC 81 mg [Ecotrin 81 mg] 81 mg PO DAILY Outpatient Orders: Occupational Therapy Eval & Treat Facility: [facility], Location: OCCUPATIONAL THERAPY Physical Therapy Eval & Treat Facility: [facility], Location: PHYSICAL THERAPY Instructions: Transient Ischemic Attack (DC) Additional Instructions: YOUR FIRST PT/OT APT IS 03/23/23@10:00 AM YOU WILL NEED TO FOLLOW-UP WITH NEUROLOGY AND CARDIOLOGY. YOU WILL NEED TO CALL AND SET THOSE APPOINTMENTS UP TOMORROW. Follow up with: CHLOÉ CARABALLO [Primary Care Provider] - 03/23/23 2:30 pm (YOU WILL SEE HER PARTNER HERNANDEZ NARANJO MD DR CARABALLO IS OUT OF TOWN ALL WEEK. ) Forms: Discharge Instructions
[2023-03-17] MEDS ORDERED: ECOTRIN 81 MG PO SCH (16:30)
[2023-03-17] MEDS ORDERED: PLAVIX Tablet PO ONE (18:14)
[2023-03-17] MEDS ORDERED: PLAVIX Tablet ONE (18:15)
== END 2023-03-17 18:25 | disposition home or self-care (01) ==
LOC: ED 13:17 → MED SURG 19:45
PROVIDERS: ADMIT Internal Medicine; ATTEND Internal Medicine
DX: I63.9 Cerebral infarction, unspecified (principal); G45.9 Transient cerebral ischemic attack, unspecified; E11.9 Type 2 diabetes mellitus without complications; I10 Essential (primary) hypertension; I25.10 Atherosclerotic heart disease of native coronary artery without angina pectoris; B19.20 Unspecified viral hepatitis C without hepatic coma; E78.5 Hyperlipidemia, unspecified; N39.0 Urinary tract infection, site not specified; I25.2 Old myocardial infarction; Z79.899 Other long term (current) drug therapy; Z20.828 Contact with and (suspected) exposure to other viral communicable diseases; Z86.73 Personal history of transient ischemic attack (TIA), and cerebral infarction without residual deficits
CPT/HCPCS: 36415; 70450; 70496; 70498; 70551; 80053; 80061; 81015; 82947; 83036; 83721; 83735; 84132; 84484; 85025; 85027; 85610; 85730; 87077; 87086; 87186; 93005; 93268; 93306; 94762; 97161; 99284; 99291; G0378; Q3014; J0696; J1650; A9270-GY

== ENCOUNTER 2023-04-28 09:50 | Emergency (ER) | payer MEDICARE, OTHER ==
--- NOTE | 2023-04-28 09:56 | ERPHSYRPT ---
- History of Present Illness Time Seen by Provider: 04/28/23 09:56 Source: patient, family Exam Limitations: no limitations Physician History: This is a 67-year-old white male patient who was recently diagnosed and treated for a CVA. Patient was admitted in our facility on 03/16/2023 and discharged on 03/17/2023. 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 A CT scan on 03/16/2023 showed no acute abnormality. CTA on 03/16/2023 showed no acute abnormality. An MRI of the brain was performed on 03/17/2023 and showed a posterior left temporal lobe involvement. Patient had a work-up performed in the hospital as well as a telemetry neuro consultation. Patient is currently on Xarelto. Patient has a history of hypertension, cor onary artery disease (myocardial infarction) migraine headaches and chronic pain syndrome. He also has a history of gastroesophageal reflux disease and hyperlipidemia. This recent CVA affected his right side and is aphasic. Patient has not slept well since yesterday when they had to put their pet dog to sleep. That was his dog for 12 years. He was pacing throughout the night and did not sleep. Today, he has been less interactive and the noticed left facial drooping and right hand is a little weaker than usual. Patient does get frequent urinary tract infections. Timing/Duration: today, worse Character of Deficits: Left Facial (New left facial droop), RUE (More weak than usual) Deficits: no difficulties (No new difficulty) Baseline Gait: walks w/o assistance Associated Symptoms: weakness (Increased weakness right hand), slurred speech ( thinks there is left facial drooping and his speech is a little more slurred although he has aphasia since his last) Allergies/Adverse Reactions: No Known Drug Allergies Allergy (Verified 03/16/23 13:35) Home Medications: Carvedilol 12.5 mg [Coreg 12.5 mg] 3.125 mg PO BID 08/15/17 [History] Ropinirole HCl 1 mg PO TID 08/15/17 [History] Atorvastatin Calcium 40 mg PO DAILY 09/21/22 [History] Esomeprazole Magnesium 40 mg PO DAILY 09/21/22 [History] lisinopriL [Zestril] 2.5 mg PO DAILY 09/21/22 [History] Rivaroxaban [Xarelto] 2.5 mg PO BID 04/28/23 [History] Hx Tetanus, Diphtheria Vaccination/Date Given: Yes Hx Influenza Vaccination/Date Given: Yes Hx Pneumococcal Vaccination/Date Given: Yes Travel Risk - International Travel Have you traveled outside of the country in past 3 weeks: No - Coronavirus Screening Are you exhibiting any of the following symptoms?: No Close contact with a COVID-19 positive Pt in past 14-21 Days: No - Vaccine Status Have you recieved a Covid-19 vaccination: Yes Manager Staffing: Moderna - Vaccination Dates Date of 2cond Vaccination (if applicable): 2020 - Review of Systems Constitutional: No Symptoms Eyes: No Symptoms Ears, Nose, & Throat: No Symptoms Respiratory: No Symptoms Cardiac: No Symptoms Abdominal/Gastrointestinal: No Symptoms Genitourinary Symptoms: No Symptoms Musculoskeletal: Other (Chronic right-sided weakness) Skin: No Symptoms Neurological: Speech Changes Psychological: No Symptoms Endocrine: No Symptoms Hematologic/Lymphatic: No Symptoms Immunological/Allergic: No Symptoms All Other Systems: Reviewed and Negative - Past Medical History Pertinent Past Medical History: Yes Neurological History: Migraines, Stroke ENT History: No Pertinent History Cardiac History: Hypertension, Myocardial Infarction ([place]) Respiratory History: No Pertinent History Endocrine Medical History: Diabetes Type II Musculoskeletal History: Fractures, Osteoarthritis GI Medical History: Hepatitis History: No Pertinent History Psycho-Social History: No Pertinent History Male Reproductive Disorders: No Pertinent History Other Medical History: HEPATITIS C, CHRONIC PAIN SYNDROME, DYSPHAGIA. SX HX: BACK SX X 5, RIGHT SHOULDER REPLACEMENT, RIGHT KNEE REPLACEMENT, GASTRIC BYPASS 2009, Dislipidemia - Past Surgical History Past Surgical History: Yes Neuro Surgical History: No Pertinent History Cardiac: Cardiac Catheterization Respiratory: No Pertinent History Gastrointestinal: Other Genitourinary: No Pertinent History Musculoskeletal: Orthopedic Surgery, Other Male Surgical History: No Pertinent History Other Surgical History: bariatric surgery 5yrs ago 3 back surgeries, left knee replacement,2 nasal surgeries, left elbow, several scopes of different joints. joint replacement in foot. - Social History Smoking Status: Never smoker Exposure to second hand smoke: No Drug Use: none Patient Lives Alone: No Significant Family History: no pertinent family hx - Nursing Vital Signs Nursing Vital Signs: Initial Vital Signs Temperature 97.5 F 04/28/23 09:51 Pulse Rate 67 04/28/23 09:51 Respiratory Rate 20 04/28/23 09:51 Blood Pressure 126/77 04/28/23 09:51 O2 Sat by Pulse Oximetry 95 04/28/23 09:51 Pain Scale Pain Intensity 0 - Lucio Coma Scale Best Eye Response ([place]): (4) open spontaneously Best Verbal Response ([place]): (1) no verbal response Best Motor Response ([place]): (6) obeys commands (Left side only) [place] Total: 11 (Patient has had a CVA and is aphasic.) - Physical Exam General Appearance: no apparent distress, alert Eye Exam: bilateral eye: normal inspection, PERRL, EOMI Ears, Nose, Throat Exam: moist mucous membranes Neck Exam: normal inspection, non-tender, supple, full range of motion Respiratory: normal breath sounds, lungs clear, No chest tenderness, No respiratory distress Cardiovascular: regular rate/rhythm, normal heart sounds, normal peripheral pulses Gastrointestinal: soft, normal bowel sounds, No tenderness Rectal Exam: not done Back Exam: normal inspection, normal range of motion, No CVA tenderness, No vertebral tenderness Extremity Exam: normal inspection, normal range of motion, pelvis stable Mental Status: alert, oriented x 3, 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 No acute ischemic changes on this twelve- lead EKG.) Ordered Tests: Active Orders 24 hr Category Date Time Status Registered Nurse Bone Marrow Transplant STAT Care 04/28/23 10:08 Active EKG-ER Only STAT Care 04/28/23 10:07 Active IV Insertion STAT Care 04/28/23 10:07 Active NPO (ED) STAT Care 04/28/23 10:08 Active NPO (ED) STAT Care 04/28/23 10:09 Active Consult Neurology ROUTINE Cons 04/28/23 14:13 Completed MRI BRAIN W/O CONTRAST [MRI] Stat Exams 04/28/23 10:09 Completed CBC W DIFF Stat Lab 04/28/23 10:17 Completed CMP Stat Lab 04/28/23 10:17 Completed UA W/RFX UR CULTURE Stat Lab 04/28/23 13:00 Completed Holter Monitor ONCE RT 04/28/23 14:39 Ordered Lab/Rad Data: Laboratory Result Diagrams 04/28/23 10:17 04/28/23 10:17 Laboratory Results 04/28/23 04/28/23 04/28/23 Range/Units 13:00 10:17 10:17 WBC 5.8 (4.0-10.5) x10^3/uL RBC 4.86 (4.1-5.6) x10^6/uL Hgb 14.2 (12.5-18.0) g/dL Hct 43.3 (42-50) % MCV 89.1 (78-100) fL MCH 29.2 (26-32) pg MCHC 32.8 (32-36) g/dL RDW 13.0 (11.5-14.0) % Plt Count 376 (150-450) x10^3/uL MPV 9.2 (7.5-11.0) fL Gran % 64.6 (36.0-66.0) % Immature Gran % (Auto) 0.5 H (0.00-0.4) % Nucleat RBC Rel Count 0.0 (0.00-0.1) % Eos # (Auto) 0.17 (0-0.5) x10^3/uL Immature Gran # (Auto) 0.03 (0.00-0.03) x10^3u/L Absolute Lymphs (auto) 1.37 (1.0-4.6) x10^3/uL Absolute Monos (auto) 0.47 (0.0-1.3) x10^3/uL Absolute Nucleated RBC 0.00 (0.00-0.01) x10^3u/L Lymphocytes % 23.5 L (24.0-44.0) % Monocytes % 8.0 (0.0-12.0) % Eosinophils % 2.9 (0.00-5.0) % Basophils % 0.5 (0.0-0.4) % Absolute Granulocytes 3.77 (1.4-6.9) x10^3/uL Basophils # 0.03 (0-0.4) x10^3/uL Sodium 139 (137-145) mmol/L Potassium 3.6 (3.5-5.1) mmol/L Chloride 107 (98-107) mmol/L Carbon Dioxide 24 (22-30) mmol/L Anion Gap 12.2 (5-15) MEQ/L BUN 9 (9-20) mg/dL Creatinine 0.54 L (0.66-1.25) mg/dL Estimated GFR 107.9 ML/MIN Glucose 141 H (74-106) mg/dL Calcium 8.5 (8.4-10.2) mg/dL Total Bilirubin 0.60 (0.2-1.3) mg/dL AST 28 (17-59) U/L ALT 29 (0-50) U/L Alkaline Phosphatase 86 (38-126) U/L Serum Total Protein 6.5 (6.3-8.2) g/dL Albumin 3.6 (3.5-5.0) g/dL Urine Color Yellow (Yellow) Urine Appearance Cloudy A (Clear) Urine pH 7.0 (4.6-8.0) Ur Specific [place] 1.015 (1.005-1.030) Urine Protein Negative (Negative) Urine Glucose (UA) Negative (Negative) mg/dL Urine Ketones Negative (Negative) Urine Blood Negative (Negative) Urine Nitrite Negative (Negative) Urine Bilirubin Negative (Negative) Urine Urobilinogen 1.0 A (0.2) mg/dL Ur Leukocyte Esterase Negative (Negative) U Hyaline Cast (Auto) NONE SEEN (0-2) /LPF Urine Microscopic RBC 0-2 (0-5) /HPF Urine Microscopic WBC 0-2 (0-5) /HPF Ur Epithelial Cells None Seen (None Seen) /HPF Urine Bacteria None Seen (None Seen) /HPF Urine Culture Reflexed NO (NO) - Progress Progress: unchanged Progress Note: 04/28/23 11:04 This patient's medical issue is 1 of moderate complexity. Level complexity in the work-up performed is based on review the patient's past medical history, review the patient's medication list, review of the patient's drug allergy list, history present illness and physical findings on examination. Work-up includes placement of intravenous line, CBC, CMP, urinalysis, twelve-lead EKG, MRI of the brain without contrast. 04/28/23 11:39 The MRI of the brain without was interpreted by the radiologist and I reviewed the impression. Impression states interval improved multifocal acute micro ischemia left parietal lobe. No acute hemorrhage/mass effect. Stable large old left temporoparietal infarction. 04/28/23 14:39 I ordered a telemetry neuro consultation and Dr. Mtz, the teleneurologist evaluated this patient and she recommends that there are no changes to this p atient's outpatient medication at this time. She recommends a Holter monitor to evaluate for possible atrial fibrillation. As long as the patient is ambulatory, she feels comfortable him being discharged to home to follow-up with cardiology and neurology. Counseled pt/family regarding: lab results, diagnosis, rad results Medical Desision Making - Independent Historian Additional History obtained from: Spouse - Discussion of managment Care discussed with:: specialist (Teleneurologist Dr. Mtz) Reviewed:: Test results - Diagnostic Testing Diagnostic test were ordered, analyzed, and reviewed by me: Yes Radiological Interpretation: Reviewed by me, Teleradiologist Report - Risk of complications Low Risk: Low risk of morbidity from additional dx testing or treatment - Departure Departure Disposition: Home Clinical Impression: Stroke-like symptoms Condition: Stable Critical Care Time: No Referrals: CHLOÉ CARABALLO [Primary Care Provider] - Follow up/PCP as directed Additional Instructions: Plenty of fluids. Continue medication as prescribed. Call your toe lining closer and your neurologist tomorrow, 04/29/2023, to make arrangements for follow-up appointment the next 3 days. Wear your Holter monitor as discussed.
[2023-04-28 10:00] VITALS: TEMP 97.5
[2023-04-28 10:18] LABS: Absolute Neutrophil Ct (ANC) 3.77 x10^3/uL (1.4-6.9); BASOPHIL % 0.5 % (0.0-0.4); Basophil (Absolute #) 0.03 x10^3/uL (0-0.4); Eosinophil % 2.9 % (0.00-5.0); Eosinophil (Absolute #) 0.17 x10^3/uL (0-0.5); Hematocrit 43.3 % (42-50); Hemoglobin 14.2 g/dL (12.5-18.0); IMMATURE GRAN # 0.03 x10^3u/L (0.00-0.03); IMMATURE GRAN % 0.5 % (0.00-0.4); Lymphocyte (Absolute #) 1.37 x10^3/uL (1.0-4.6); Lymphocytes % 23.5 % (24.0-44.0); Mean Cell Volume 89.1 fL (78-100); Mean Corpuscular Hemoglobin 29.2 pg (26-32); Mean Corpuscular Hgb Concent. 32.8 g/dL (32-36); Mean Platelet Volume 9.2 fL (7.5-11.0); Monocyte (Absolute #) 0.47 x10^3/uL (0.0-1.3); Neutrophil % 64.6 % (36.0-66.0); Platelet Count 376 x10^3/uL (150-450); Red Blood Count 4.86 x10^6/uL (4.1-5.6); White Blood Count 5.8 x10^3/uL (4.0-10.5)
[2023-04-28 10:34] LABS: ALBUMIN 3.6 g/dL (3.5-5.0); ANION GAP 12.2 MEQ/L (5-15); BILIRUBIN,TOTAL 0.6 mg/dL (0.2-1.3); Calcium 8.5 mg/dL (8.4-10.2); Creatinine 1 0.54 mg/dL (0.66-1.25); EST GLOMERULAR FILTRATION RATE 107.9 ML/MIN; Potassium 3.6 mmol/L (3.5-5.1); Total Protein 6.5 g/dL (6.3-8.2)
--- NOTE | 2023-04-28 11:24 | XRAY ---
Indication: Left facial droop. History CVA. Sagittal, coronal, and axial MRI brain performed without contrast using T1, T2, FLAIR, diffusion, and ADC sequences. Comparison: March 17, 2023 Again age-appropriate global atrophy, mild periventricular degenerative micro-ischemia bilaterally, and old left temporoparietal infarct. Previous multifocal restricted signal in left parietal lobe improved with minimal residual seen mid periventricular measuring 6 x 11 mm. Also residual petechial restricted signal posterior parietal lobe. No acute intracranial hemorrhage, hydrocephalus, or mass effect are fourth ventricle is midline. Normal flow-void signal within the major intracerebral circulation. Normal appearing cranial cervical junction and sella turcica. Paranasal sinuses remain clear. Impression: 1. Interval improved multifocal acute micro-ischemia in left parietal lobe with minimal residual as detailed above. No acute hemorrhage/mass effect. 2. Grossly stable atrophy, degenerative micro-ischemia, and large old left temporoparietal infarct.
[2023-04-28 13:27] LABS: ADD URINE CULTURE? NO (NO); Appearance Cloudy (Clear); Bacteria None Seen /HPF (None Seen); Bilirubin Negative (Negative); Blood Negative (Negative); Epithelial Cells None Seen /HPF (None Seen); Glucose, Urine Negative (Negative); Hyaline Casts NONE SEEN /LPF (0-2); Ketones Negative (Negative); Leukocyte Esterase Negative (Negative); Nitrite Negative (Negative); Protein,Urine Dip Negative (Negative); RBC 0-2 /HPF (0-5); Specific Gravity 1.015 (1.005-1.030); WBC 0-2 /HPF (0-5)
[2023-04-28 14:35] VITALS: O2SAT 96
[2023-04-28 14:53] VITALS: BP 142/83; PULSE 54; RESP 12
== END 2023-04-28 15:03 | disposition home or self-care (01) ==
LOC: ED 09:50
DX: R29.810 Facial weakness (principal); M62.81 Muscle weakness (generalized); I10 Essential (primary) hypertension; E11.9 Type 2 diabetes mellitus without complications; E78.5 Hyperlipidemia, unspecified; Z79.01 Long term (current) use of anticoagulants; Z79.899 Other long term (current) drug therapy
CPT/HCPCS: 36000; 36415; 70551; 80053; 81001; 85025; 93005; 93041; 93225; 99284

== ENCOUNTER 2023-07-06 09:02 | Emergency (ER) | payer MEDICARE, OTHER ==
--- NOTE | 2023-07-06 09:32 | XRAY ---
Indication: Weakness. Stroke symptoms. Multiple contiguous axial images obtained through the head without contrast. Comparison: March 16, 2023 Grossly stable age-appropriate global atrophy and large old left temporoparietal infarct infarct. No acute intracranial hemorrhage, hydrocephalus, or mass effect. Fourth ventricle is midline. Bony calvarium intact. Visualized paranasal sinuses and mastoid air cells are clear. Impression: Grossly stable atrophy and old left temporoparietal infarct. No new or acute intracranial abnormalities.
[2023-07-06 09:47] VITALS: BP 114/73; PULSE 66; RESP 18; TEMP 97.8; O2SAT 96
[2023-07-06 10:07] LABS: Absolute Neutrophil Ct (ANC) 4.37 x10^3/uL (1.4-6.9); BASOPHIL % 0.6 % (0.0-0.4); Basophil (Absolute #) 0.04 x10^3/uL (0-0.4); Eosinophil % 2.2 % (0.00-5.0); Eosinophil (Absolute #) 0.15 x10^3/uL (0-0.5); Hematocrit 46.6 % (42-50); IMMATURE GRAN # 0.02 x10^3u/L (0.00-0.03); IMMATURE GRAN % 0.3 % (0.00-0.4); Lymphocyte (Absolute #) 1.51 x10^3/uL (1.0-4.6); Lymphocytes % 22.2 % (24.0-44.0); Mean Cell Volume 89.6 fL (78-100); Mean Corpuscular Hemoglobin 28.8 pg (26-32); Mean Corpuscular Hgb Concent. 32.2 g/dL (32-36); Mean Platelet Volume 9.4 fL (7.5-11.0); Monocytes % 10.3 % (0.0-12.0); Neutrophil % 64.4 % (36.0-66.0); Platelet Count 377 x10^3/uL (150-450); Red Cell Distribution Width 13.2 % (11.5-14.0); White Blood Count 6.8 x10^3/uL (4.0-10.5)
[2023-07-06 10:21] LABS: ALBUMIN 3.8 g/dL (3.5-5.0); BILIRUBIN,TOTAL 0.7 mg/dL (0.2-1.3); Calcium 8.7 mg/dL (8.4-10.2); Creatinine 1 0.62 mg/dL (0.66-1.25); EST GLOMERULAR FILTRATION RATE 103.5 ML/MIN; Potassium 3.8 mmol/L (3.5-5.1); Total Protein 6.7 g/dL (6.3-8.2)
[2023-07-06 10:23] LABS: PROTIME 10.9 SECONDS (9.4-12.5); PTT 32.5 SECONDS (25.1-36.5)
--- NOTE | 2023-07-06 10:39 | ERPHSYRPT ---
- History of Present Illness Time Seen by Provider: 07/06/23 09:40 Source: family Exam Limitations: clinical condition (Patient chronically aphasic) Patient Subjective Stated Complaint: left sided weakness Triage Nursing Assessment: Patient ambulated back to ED and taken over to CT per w/c. Patient then sat on bed afterwards. Patient non verbal due to a previous stroke that affected right side. Patient's states around 0830 she went to give patient medication and noted patient was holding left arm with right arm, which is unusual and his gait is slow and hes dragging left leg. Patient grimaced when asked about left arm, but unable to express. Physician History: This is a 67-year-old white male patient who has a history of chronic aphasia and chronic right side weakness secondary to the stroke that he suffered in the past. This morning, approximately 8:30 in the morning, the patient's spouse noticed that he was holding his left side and there is possible dragging of his left foot when ambulating. He also complained that his left arm was hurting. Patient is able to nod for yes and shake his head for no. He denies shortness of breath. He denies chest pain. He denies abdominal pain. At the time of my examination, the patient is moving his left upper extremity and left lower extremity normally. The spouse provided additional, independent history on this patient secondary to his aphasia. Patient has a history of hypertension, CVA, hyperlipidemia and gastroesophageal reflux disease. Timing/Duration: today Severity: mild (Resolved at the time of my examination) Associated Symptoms: denies symptoms Allergies/Adverse Reactions: No Known Drug Allergies Allergy (Verified 07/06/23 09:35) Home Medications: Carvedilol 12.5 mg [Coreg 12.5 mg] 3.125 mg PO BID 08/15/17 [History] Ropinirole HCl 1 mg PO TID 08/15/17 [History] Atorvastatin Calcium 40 mg PO DAILY 09/21/22 [History] Esomeprazole Magnesium 40 mg PO DAILY 09/21/22 [History] lisinopriL [Zestril] 2.5 mg PO DAILY 09/21/22 [History] Rivaroxaban [Xarelto] 2.5 mg PO BID 04/28/23 [History] Hx Tetanus, Diphtheria Vaccination/Date Given: Yes Hx Influenza Vaccination/Date Given: Yes Hx Pneumococcal Vaccination/Date Given: Yes Immunizations Up to Date: Yes Travel Risk - International Travel Have you traveled outside of the country in past 3 weeks: No - Coronavirus Screening Are you exhibiting any of the following symptoms?: No Close contact with a COVID-19 positive Pt in past 14-21 Days: No - Vaccine Status Have you recieved a Covid-19 vaccination: Yes 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: 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 - Vaccination Dates Date of 2cond Vaccination (if applicable): 2020 - Review of Systems Constitutional: Weakness (Left upper and left lower extremity) Eyes: No Symptoms Ears, Nose, & Throat: No Symptoms Respiratory: No Symptoms Cardiac: No Symptoms Abdominal/Gastrointestinal: No Symptoms Genitourinary Symptoms: No Symptoms Musculoskeletal: No Symptoms Skin: No Symptoms Psychological: Other ( reports, approximately 8:30 AM, she was concerned that the patient had weakness in his left upper and left lower extremity) Endocrine: No Symptoms Hematologic/Lymphatic: No Symptoms Immunological/Allergic: No Symptoms All Other Systems: Reviewed and Negative - Past Medical History Pertinent Past Medical History: Yes Neurological History: Migraines, Stroke ENT History: No Pertinent History Cardiac History: Hypertension, Myocardial Infarction ([place]) Respiratory History: No Pertinent History Endocrine Medical History: Diabetes Type II Musculoskeletal History: Fractures, Osteoarthritis GI Medical History: Hepatitis History: No Pertinent History Psycho-Social History: No Pertinent History Male Reproductive Disorders: No Pertinent History Other Medical History: HEPATITIS C, CHRONIC PAIN SYNDROME, DYSPHAGIA. SX HX: BACK SX X 5, RIGHT SHOULDER REPLACEMENT, RIGHT KNEE REPLACEMENT, GASTRIC BYPASS 2009, Dislipidemia - Past Surgical History Past Surgical History: Yes Neuro Surgical History: No Pertinent History Cardiac: Cardiac Catheterization Respiratory: No Pertinent History Gastrointestinal: Other Genitourinary: No Pertinent History Musculoskeletal: Orthopedic Surgery, Other Male Surgical History: No Pertinent History Other Surgical History: bariatric surgery 5yrs ago 3 back surgeries, left knee replacement,2 nasal surgeries, left elbow, several scopes of different joints. joint replacement in foot. - Social History Smoking Status: Never smoker Exposure to second hand smoke: No Drug Use: none Patient Lives Alone: No Significant Family History: no pertinent family hx - Nursing Vital Signs Nursing Vital Signs: Initial Vital Signs Temperature 97.8 F 07/06/23 09:36 Pulse Rate 66 07/06/23 09:36 Respiratory Rate 18 07/06/23 09:36 Blood Pressure 114/73 07/06/23 09:36 O2 Sat by Pulse Oximetry 96 07/06/23 09:36 Pain Scale Pain Intensity 5 - Physical Exam General Appearance: no apparent distress, alert Eye Exam: PERRL/EOMI, eyes nml inspection Ears, Nose, Throat Exam: normal ENT inspection, moist mucous membranes Neck Exam: normal inspection, non-tender, supple, full range of motion Respiratory Exam: normal breath sounds, lungs clear, airway intact, No chest tenderness, No respiratory distress Cardiovascular Exam: regular rate/rhythm, normal heart sounds, normal peripheral pulses Gastrointestinal/Abdomen Exam: soft, normal bowel sounds, No tenderness Rectal Exam: not done Back Exam: normal inspection, normal range of motion, No CVA tenderness, No vertebral tenderness Extremity Exam: normal inspection (Left upper and left lower extremity), normal range of motion (Left upper and left lower extremity), pelvis stable (Left upper and left lower extremity) Neurologic Exam: alert, oriented x 3, cooperative, clinical application consultant II-XII nml as tested, normal mood/affect, nml cerebellar function, sensation nml, aphasia (Chronic post prior CVA), other (Chronic right upper and right lower extremity weakness post CVA) Skin Exam: normal color, warm, dry Lymphatic Exam: No adenopathy SpO2 Interpretation: normal SpO2: 96 O2 Delivery: Room Air Ordered Tests: Active Orders 24 hr Category Date Time Status EKG-ER Only STAT Care 07/06/23 09:49 Active IV Insertion STAT Care 07/06/23 09:49 Active HEAD WITHOUT CONTRAST [CT] Stat Exams 07/06/23 09:15 Completed CBC W DIFF Stat Lab 07/06/23 10:00 Completed CMP Stat Lab 07/06/23 10:00 Completed CULTURE,URINE Stat Lab 07/06/23 10:58 Received PT INR [PROTIME WITH INR] Stat Lab 07/06/23 10:00 Completed PTT Stat Lab 07/06/23 10:00 Completed TROPONIN Q4H Lab 07/06/23 10:00 Completed TROPONIN Q4H Lab 07/06/23 14:00 Ordered TROPONIN Q4H Lab 07/06/23 18:00 Ordered TROPONIN Q4H Lab 07/06/23 22:00 Ordered UA W/RFX UR CULTURE Stat Lab 07/06/23 10:58 Completed Lab/Rad Data: Laboratory Result Diagrams 07/06/23 10:00 07/06/23 10:00 Laboratory Results 07/06/23 07/06/23 07/06/23 Range/Units 10:58 10:00 10:00 WBC (4.0-10.5) x10^3/uL RBC (4.1-5.6) x10^6/uL Hgb (12.5-18.0) g/dL Hct (42-50) % MCV (78-100) fL MCH (26-32) pg MCHC (32-36) g/dL RDW (11.5-14.0) % Plt Count (150-450) x10^3/uL MPV (7.5-11.0) fL Gran % (36.0-66.0) % Immature Gran % (Auto) (0.00-0.4) % Nucleat RBC Rel Count (0.00-0.1) % Eos # (Auto) (0-0.5) x10^3/uL Immature Gran # (Auto) (0.00-0.03) x10^3u/L Absolute Lymphs (auto) (1.0-4.6) x10^3/uL Absolute Monos (auto) (0.0-1.3) x10^3/uL Absolute Nucleated RBC (0.00-0.01) x10^3u/L Lymphocytes % (24.0-44.0) % Monocytes % (0.0-12.0) % Eosinophils % (0.00-5.0) % Basophils % (0.0-0.4) % Absolute Granulocytes (1.4-6.9) x10^3/uL Basophils # (0-0.4) x10^3/uL PT 10.9 (9.4-12.5) SECONDS INR 1.00 (0.8-3.0) APTT 32.5 (25.1-36.5) SECONDS Sodium (137-145) mmol/L Potassium (3.5-5.1) mmol/L Chloride (98-107) mmol/L Carbon Dioxide (22-30) mmol/L Anion Gap (5-15) MEQ/L BUN (9-20) mg/dL Creatinine (0.66-1.25) mg/dL Estimated GFR ML/MIN Glucose (74-106) mg/dL Calcium (8.4-10.2) mg/dL Total Bilirubin (0.2-1.3) mg/dL AST (17-59) U/L ALT (0-50) U/L Alkaline Phosphatase (38-126) U/L Troponin I < 0.012 (0.000-0.034) ng/mL Serum Total Protein (6.3-8.2) g/dL Albumin (3.5-5.0) g/dL Urine Color Yellow (Yellow) Urine Appearance Clear (Clear) Urine pH 7.0 (4.6-8.0) Ur Specific [place] 1.020 (1.005-1.030) Urine Protein 30 (Negative) Urine Glucose (UA) Negative (Negative) mg/dL Urine Ketones Negative (Negative) Urine Blood Moderate A (Negative) Urine Nitrite Negative (Negative) Urine Bilirubin Negative (Negative) Urine Urobilinogen 1.0 A (0.2) mg/dL Ur Leukocyte Esterase Negative (Negative) U Hyaline Cast (Auto) 3-5 A (0-2) /LPF Urine Microscopic RBC >100 A (0-5) /HPF Urine Microscopic WBC 3-5 (0-5) /HPF Ur Epithelial Cells None Seen (None Seen) /HPF Urine Bacteria None Seen (None Seen) /HPF Urine Culture Reflexed YES (NO) 07/06/23 07/06/23 Range/Units 10:00 10:00 WBC 6.8 (4.0-10.5) x10^3/uL RBC 5.20 (4.1-5.6) x10^6/uL Hgb 15.0 (12.5-18.0) g/dL Hct 46.6 (42-50) % MCV 89.6 (78-100) fL MCH 28.8 (26-32) pg MCHC 32.2 (32-36) g/dL RDW 13.2 (11.5-14.0) % Plt Count 377 (150-450) x10^3/uL MPV 9.4 (7.5-11.0) fL Gran % 64.4 (36.0-66.0) % Immature Gran % (Auto) 0.3 (0.00-0.4) % Nucleat RBC Rel Count 0.0 (0.00-0.1) % Eos # (Auto) 0.15 (0-0.5) x10^3/uL Immature Gran # (Auto) 0.02 (0.00-0.03) x10^3u/L Absolute Lymphs (auto) 1.51 (1.0-4.6) x10^3/uL Absolute Monos (auto) 0.70 (0.0-1.3) x10^3/uL Absolute Nucleated RBC 0.00 (0.00-0.01) x10^3u/L Lymphocytes % 22.2 L (24.0-44.0) % Monocytes % 10.3 (0.0-12.0) % Eosinophils % 2.2 (0.00-5.0) % Basophils % 0.6 (0.0-0.4) % Absolute Granulocytes 4.37 (1.4-6.9) x10^3/uL Basophils # 0.04 (0-0.4) x10^3/uL PT (9.4-12.5) SECONDS INR (0.8-3.0) APTT (25.1-36.5) SECONDS Sodium 136 L (137-145) mmol/L Potassium 3.8 (3.5-5.1) mmol/L Chloride 107 (98-107) mmol/L Carbon Dioxide 25 (22-30) mmol/L Anion Gap 9.0 (5-15) MEQ/L BUN 14 (9-20) mg/dL Creatinine 0.62 L (0.66-1.25) mg/dL Estimated GFR 103.5 ML/MIN Glucose 94 (74-106) mg/dL Calcium 8.7 (8.4-10.2) mg/dL Total Bilirubin 0.70 (0.2-1.3) mg/dL AST 33 (17-59) U/L ALT 44 (0-50) U/L Alkaline Phosphatase 88 (38-126) U/L Troponin I (0.000-0.034) ng/mL Serum Total Protein 6.7 (6.3-8.2) g/dL Albumin 3.8 (3.5-5.0) g/dL Urine Color (Yellow) Urine Appearance (Clear) Urine pH (4.6-8.0) Ur Specific [place] (1.005-1.030) Urine Protein (Negative) Urine Glucose (UA) (Negative) mg/dL Urine Ketones (Negative) Urine Blood (Negative) Urine Nitrite (Negative) Urine Bilirubin (Negative) Urine Urobilinogen (0.2) mg/dL Ur Leukocyte Esterase (Negative) U Hyaline Cast (Auto) (0-2) /LPF Urine Microscopic RBC (0-5) /HPF Urine Microscopic WBC (0-5) /HPF Ur Epithelial Cells (None Seen) /HPF Urine Bacteria (None Seen) /HPF Urine Culture Reflexed (NO) - Progress Progress: unchanged, re-examined Progress Note: 07/06/23 10:38 This patient's medical issue is 1 of moderate complexity. The level complex in the workup performed is based on review of the patient's past medical history, review of the patient's medication list, review of patient drug allergy list, history of present illness and physical findings on examination. Workup in this patient includes CT scan of the head without contrast, placement of intravenous line, urinalysis, CBC, CMP, troponin level, twelve-lead EKG. 07/06/23 10:39 CT scan of the head without contrast was interpreted by the radiologist. I reviewed the impression. The impression states grossly stable atrophy and old left temporoparietal infarct. No new/acute intracranial abnormalities. 07/06/23 11:41 I interpreted the patient's laboratory data results. Patient has no evidence for any acute, emergent medical issue based on the laboratory data results. Counseled pt/family regarding: lab results, diagnosis, need for follow-up, rad results Medical Desision Making - Independent Historian Additional History obtained from: Spouse - Diagnostic Testing Diagnostic test were ordered, analyzed, and reviewed by me: Yes Radiological Interpretation: Reviewed by me - Risk of complications Low Risk: Low risk of morbidity from additional dx testing or treatment - Departure Departure Disposition: Home Clinical Impression: Weakness Condition: Stable Critical Care Time: No Referrals: CHLOÉ CARABALLO [Primary Care Provider] - Follow up/PCP as directed Additional Instructions: Drink plenty of fluids. Advance your diet as tolerated. Take your medications as prescribed. Call your primary care provider today, 07/06/2023, to make arrangements for follow-up appointment in the next 3 to 5 days
[2023-07-06 11:34] LABS: Appearance Clear (Clear); Bacteria None Seen /HPF (None Seen); Bilirubin Negative (Negative); Blood Moderate (Negative); Epithelial Cells None Seen /HPF (None Seen); Glucose, Urine Negative (Negative); Ketones Negative (Negative); Leukocyte Esterase Negative (Negative); Nitrite Negative (Negative); Protein,Urine Dip 30 (Negative); RBC >100 /HPF (0-5)
[2023-07-06 11:35] LABS: ADD URINE CULTURE? YES (NO)
== END 2023-07-06 12:59 ==
LOC: ED 09:02
DX: R53.1 Weakness (principal); I69.320 Aphasia following cerebral infarction; I69.351 Hemiplegia and hemiparesis following cerebral infarction affecting right dominant side; I10 Essential (primary) hypertension; E11.9 Type 2 diabetes mellitus without complications; E78.5 Hyperlipidemia, unspecified; Z79.01 Long term (current) use of anticoagulants; Z79.899 Other long term (current) drug therapy
CPT/HCPCS: 36000; 36415; 70450; 80053; 81001; 84484; 85025; 85610; 85730; 87086; 93005; 99284

== ENCOUNTER 2024-02-22 12:54 | Observation (INO) | payer MEDICARE, OTHER ==
--- NOTE | 2024-02-22 12:59 | ERPHSYRPT ---
- History of Present Illness Time Seen by Provider: 02/22/24 12:59 Source: patient, family Exam Limitations: no limitations Physician History: This is an obese 68-year-old white male that was brought into the hospital by private vehicle escorted by his who provided additional, independent history secondary to the patient being aphasic secondary to a stroke in the past patient's spouse stated that the symptoms of coughing began yesterday approximately 10 PM on 02/21/2024. Patient has been a little more lethargic than typical this morning. Patient has a history of hypertension, hyperlipidemia, gastroesophageal reflux disease, diabetes and is on Xarelto. Timing/Duration: yesterday Cough Quality/Degree: moderate, dry cough Possible Cause: occasional episodes Modifying Factors: Improves With: nothing Associated Symptoms: cough Allergies/Adverse Reactions: No Known Drug Allergies Allergy (Verified 07/06/23 09:35) Home Medications: Carvedilol 12.5 mg [Coreg 12.5 mg] 3.125 mg PO BID 08/15/17 [History] Ropinirole HCl 1 mg PO TID 08/15/17 [History] Atorvastatin Calcium 40 mg PO DAILY 09/21/22 [History] Esomeprazole Magnesium 40 mg PO DAILY 09/21/22 [History] lisinopriL [Zestril] 2.5 mg PO DAILY 09/21/22 [History] Rivaroxaban [Xarelto] 20 mg PO BID 04/28/23 [History] Metformin HCl 500 mg [Glucophage 500 MG] 500 mg PO BIDWM 02/22/24 [History] Hx Tetanus, Diphtheria Vaccination/Date Given: Yes Hx Influenza Vaccination/Date Given: Yes Hx Pneumococcal Vaccination/Date Given: Yes Travel Risk - International Travel Have you traveled outside of the country in past 3 weeks: No - Emerging Infectious Disease Are you exhibiting symptoms associated with any current EIDs: Yes Symptoms: Cough: New Onset, Other (Please Comment) (Mildly lethargic) - Review of Systems Constitutional: No Symptoms Eyes: No Symptoms Ears, Nose, & Throat: No Symptoms Respiratory: Cough Cardiac: No Symptoms Abdominal/Gastrointestinal: No Symptoms Genitourinary Symptoms: No Symptoms Musculoskeletal: No Symptoms Skin: No Symptoms Neurological: No Symptoms Psychological: No Symptoms Endocrine: No Symptoms Hematologic/Lymphatic: No Symptoms Immunological/Allergic: No Symptoms All Other Systems: Reviewed and Negative - Past Medical History Pertinent Past Medical History: Yes Neurological History: Stroke ENT History: No Pertinent History Cardiac History: Arrhythmia, High Cholesterol, Hypertension, Myocardial Infarction ([place]) Respiratory History: COPD, Sleep Apnea Endocrine Medical History: Diabetes Type II, Liver Disease Musculoskeletal History: Degenerative Disk Disease, Fractures GI Medical History: Hepatitis History: No Pertinent History Psycho-Social History: No Pertinent History Male Reproductive Disorders: No Pertinent History Other Medical History: HX OF MULTIPLE BACK SURGERIES AND WAS SEEN IN PAST FOR PAIN MANAGEMENT DUE TO "BEING ON T00 MANY PAIN PILLS" AND WEANED OFF MEDS. SINCE STROKE NO OPIODS AND SPOUSE REPORTS RARELY DOES HE "RUB IS LEG" AND USES ONLY TYLENOL. FX LEFT ANKLE WITH ORIF WHEN YOUNG. LEFT KNEE REPLACEMENT 4 YEARS AGO. HX SHOULDER SURGERIES BILATERAL, CTR BILATERAL, ELBOW SURGERY RIGHT, LEFT GREAT TOE JOINT REPLACEMENT - Past Surgical History Past Surgical History: Yes Neuro Surgical History: No Pertinent History Cardiac: Cardiac Catheterization Respiratory: No Pertinent History Gastrointestinal: Other Genitourinary: No Pertinent History Musculoskeletal: Orthopedic Surgery, Other Male Surgical History: No Pertinent History Other Surgical History: bariatric surgery 5yrs ago 3 back surgeries, left knee replacement,2 nasal surgeries, left elbow, several scopes of different joints. joint replacement in foot. Significant Family History: no pertinent family hx - Social History Smoking Status: Never smoker Exposure to second hand smoke: No Drug Use: none Patient Lives Alone: No - Social Determinants of Health Will the patient participate in the screening: Unable to obtain - Nursing Vital Signs Nursing Vital Signs: Initial Vital Signs Temperature 98.7 F 02/22/24 12:55 Pulse Rate 92 H 02/22/24 12:55 Respiratory Rate 20 02/22/24 12:55 Blood Pressure 106/70 02/22/24 12:55 O2 Sat by Pulse Oximetry 92 L 02/22/24 12:55 Pain Scale Pain Intensity 0 - Physical Exam General Appearance: no apparent distress, lethargy (Arousable), obese Eye Exam: PERRL/EOMI, eyes nml inspection Ears, Nose, Throat Exam: normal ENT inspection, moist mucous membranes Neck Exam: normal inspection, non-tender, supple, full range of motion Respiratory Exam: normal breath sounds, lungs clear, airway intact, No chest tenderness, No respiratory distress Cardiovascular Exam: regular rate/rhythm, normal heart sounds, normal peripheral pulses Gastrointestinal/Abdomen Exam: soft, normal bowel sounds, No tenderness Rectal Exam: not done Extremity Exam: normal inspection, normal range of motion, pelvis stable Neurologic Exam: alert, cooperative, public relations writer II-XII nml as tested, other (Difficult to assess orientation since the patient is aphasic.) Skin Exam: normal color, warm, dry Lymphatic Exam: No adenopathy SpO2 Interpretation: normal O2 Delivery: Room Air - Course Nursing assessment & vital signs reviewed: Yes Ordered Tests: Active Orders 24 hr Category Date Time Status CHEST 1 VIEW (PORTABLE) Stat Exams 02/22/24 13:18 Completed BLOOD CULTURE Stat Lab 02/22/24 13:44 Received CBC W DIFF Stat Lab 02/22/24 13:30 Completed CMP Stat Lab 02/22/24 13:30 Completed CULTURE,URINE Stat Lab 02/22/24 15:04 Received Lactic Acid Stat Lab 02/22/24 13:28 Completed MONO SCREEN Stat Lab 02/22/24 13:30 Completed UA W/RFX UR CULTURE Stat Lab 02/22/24 15:04 Completed Medication Summary Discontinued Medications Generic Name Dose Route Start Last Admin Trade Name Freq PRN Reason Stop Dose Admin Ceftriaxone Sodium 1 gm in 100 mls @ 200 mls/hr 02/22/24 16:10 02/22/24 16:33 Rocephin 1 Gm / 100 Ml Nacl IV 02/22/24 16:39 200 ml/hr STAT ONE 200 mls/hr Administration Ceftriaxone Sodium Confirm 02/22/24 16:31 Rocephin 1 Gm / 100 Ml Nacl Administered 02/22/24 16:32 Dose 1 gm in 100 mls @ ud IV .K-MED ONE Lab/Rad Data: Laboratory Result Diagrams 02/22/24 13:30 02/22/24 13:30 Laboratory Results 02/22/24 02/22/24 02/22/24 Range/Units 15:04 15:00 13:46 WBC (4.23-9.07) x10^3/uL RBC (4.63-6.08) x10^6/uL Hgb (13.7-17.5) g/dL Hct (40.1-51.0) % MCV (79.0-92.2) fL MCH (25.7-32.2) pg MCHC (32.3-36.5) g/dL RDW (11.6-14.4) % Plt Count (163-337) x10^3/uL MPV (9.4-12.4) fL Gran % (34.0-67.9) % Immature Gran % (Auto) (0.001-0.429) % Nucleat RBC Rel Count (0.00-0.2) % Eos # (Auto) (0.04-0.54) x10^3/uL Immature Gran # (Auto) (0.001-0.031) x10^3u/L Absolute Lymphs (auto) (1.32-3.57) x10^3/uL Absolute Monos (auto) (0.30-0.82) x10^3/uL Absolute Nucleated RBC (0.00-0.012) x10^3u/L Lymphocytes % (21.8-53.1) % Monocytes % (5.3-12.2) % Eosinophils % (0.8-7.0) % Basophils % (0.2-1.2) % Absolute Granulocytes (1.78-5.38) x10^3/uL Basophils # (0.01-0.08) x10^3/uL Sodium (135-145) mmol/L Potassium (3.5-5.1) mmol/L Chloride (98-107) mmol/L Carbon Dioxide (22-30) mmol/L Anion Gap (5-15) MEQ/L BUN (9-20) mg/dL Creatinine (0.66-1.25) mg/dL Estimated GFR ML/MIN Glucose (74-106) mg/dL Lactic Acid (0.4-2.0) Calcium (8.4-10.2) mg/dL Total Bilirubin (0.2-1.3) mg/dL AST (17-59) U/L ALT (0-50) U/L Alkaline Phosphatase (38-126) U/L Serum Total Protein (6.3-8.2) g/dL Albumin (3.5-5.0) g/dL Urine Color Dark Yellow (Yellow) Urine Appearance Turbid A (Clear) Urine pH 5.5 (4.6-8.0) Ur Specific [place] 1.025 (1.005-1.030) Urine Protein 30 (Negative) Urine Glucose (UA) 500 A (Negative) mg/dL Urine Ketones Trace A (Negative) Urine Blood Small A (Negative) Urine Nitrite Positive A (Negative) Urine Bilirubin Small A (Negative) Urine Urobilinogen 1.0 A (0.2) mg/dL Ur Leukocyte Esterase Moderate A (Negative) U Hyaline Cast (Auto) 3-5 A (0-2) /LPF Urine Microscopic RBC 3-5 (0-5) /HPF Urine Microscopic WBC >100 A (0-5) /HPF Ur Epithelial Cells None Seen (None Seen) /HPF Urine Bacteria Many A (None Seen) /HPF Urine Culture Reflexed ORDERED SEPARATELY (NO) Monoscreen (NEGATIVE) Influenza Type A Ag NEGATIVE (NEGATIVE) Influenza Type B Ag NEGATIVE (NEGATIVE) RSV (PCR) NEGATIVE (NEGATIVE) SARS-CoV-2 (PCR) NEGATIVE (NEGATIVE) Group A Strep Antibody NOT DETECTED (NEGATIVE) Slides for Path Review 02/22/24 02/22/24 02/22/24 Range/Units 13:30 13:30 13:30 WBC 24.8 H (4.23-9.07) x10^3/uL RBC 5.26 (4.63-6.08) x10^6/uL Hgb 15.7 (13.7-17.5) g/dL Hct 46.1 (40.1-51.0) % MCV 87.6 (79.0-92.2) fL MCH 29.8 (25.7-32.2) pg MCHC 34.1 (32.3-36.5) g/dL RDW 13.0 (11.6-14.4) % Plt Count 373 H (163-337) x10^3/uL MPV 9.2 L (9.4-12.4) fL Gran % 86.4 H (34.0-67.9) % Immature Gran % (Auto) 0.9 H (0.001-0.429) % Nucleat RBC Rel Count 0.0 (0.00-0.2) % Eos # (Auto) 0 L (0.04-0.54) x10^3/uL Immature Gran # (Auto) 0.22 H (0.001-0.031) x10^3u/L Absolute Lymphs (auto) 0.99 L (1.32-3.57) x10^3/uL Absolute Monos (auto) 2.10 H (0.30-0.82) x10^3/uL Absolute Nucleated RBC 0.00 (0.00-0.012) x10^3u/L Lymphocytes % 4.0 L (21.8-53.1) % Monocytes % 8.5 (5.3-12.2) % Eosinophils % 0.0 L (0.8-7.0) % Basophils % 0.2 (0.2-1.2) % Absolute Granulocytes 21.40 H (1.78-5.38) x10^3/uL Basophils # 0.05 (0.01-0.08) x10^3/uL Sodium 136 (135-145) mmol/L Potassium 3.7 (3.5-5.1) mmol/L Chloride 104 (98-107) mmol/L Carbon Dioxide 22 (22-30) mmol/L Anion Gap 13.9 (5-15) MEQ/L BUN 13 (9-20) mg/dL Creatinine 0.75 (0.66-1.25) mg/dL Estimated GFR 97.1 ML/MIN Glucose 189 H (74-106) mg/dL Lactic Acid (0.4-2.0) Calcium 8.8 (8.4-10.2) mg/dL Total Bilirubin 1.30 (0.2-1.3) mg/dL AST 28 (17-59) U/L ALT 31 (0-50) U/L Alkaline Phosphatase 94 (38-126) U/L Serum Total Protein 6.9 (6.3-8.2) g/dL Albumin 3.8 (3.5-5.0) g/dL Urine Color (Yellow) Urine Appearance (Clear) Urine pH (4.6-8.0) Ur Specific [place] (1.005-1.030) Urine Protein (Negative) Urine Glucose (UA) (Negative) mg/dL Urine Ketones (Negative) Urine Blood (Negative) Urine Nitrite (Negative) Urine Bilirubin (Negative) Urine Urobilinogen (0.2) mg/dL Ur Leukocyte Esterase (Negative) U Hyaline Cast (Auto) (0-2) /LPF Urine Microscopic RBC (0-5) /HPF Urine Microscopic WBC (0-5) /HPF Ur Epithelial Cells (None Seen) /HPF Urine Bacteria (None Seen) /HPF Urine Culture Reflexed (NO) Monoscreen NEGATIVE (NEGATIVE) Influenza Type A Ag (NEGATIVE) Influenza Type B Ag (NEGATIVE) RSV (PCR) (NEGATIVE) SARS-CoV-2 (PCR) (NEGATIVE) Group A Strep Antibody (NEGATIVE) Slides for Path Review YES 02/22/24 Range/Units 13:28 WBC (4.23-9.07) x10^3/uL RBC (4.63-6.08) x10^6/uL Hgb (13.7-17.5) g/dL Hct (40.1-51.0) % MCV (79.0-92.2) fL MCH (25.7-32.2) pg MCHC (32.3-36.5) g/dL RDW (11.6-14.4) % Plt Count (163-337) x10^3/uL MPV (9.4-12.4) fL Gran % (34.0-67.9) % Immature Gran % (Auto) (0.001-0.429) % Nucleat RBC Rel Count (0.00-0.2) % Eos # (Auto) (0.04-0.54) x10^3/uL Immature Gran # (Auto) (0.001-0.031) x10^3u/L Absolute Lymphs (auto) (1.32-3.57) x10^3/uL Absolute Monos (auto) (0.30-0.82) x10^3/uL Absolute Nucleated RBC (0.00-0.012) x10^3u/L Lymphocytes % (21.8-53.1) % Monocytes % (5.3-12.2) % Eosinophils % (0.8-7.0) % Basophils % (0.2-1.2) % Absolute Granulocytes (1.78-5.38) x10^3/uL Basophils # (0.01-0.08) x10^3/uL Sodium (135-145) mmol/L Potassium (3.5-5.1) mmol/L Chloride (98-107) mmol/L Carbon Dioxide (22-30) mmol/L Anion Gap (5-15) MEQ/L BUN (9-20) mg/dL Creatinine (0.66-1.25) mg/dL Estimated GFR ML/MIN Glucose (74-106) mg/dL Lactic Acid 2.0 (0.4-2.0) Calcium (8.4-10.2) mg/dL Total Bilirubin (0.2-1.3) mg/dL AST (17-59) U/L ALT (0-50) U/L Alkaline Phosphatase (38-126) U/L Serum Total Protein (6.3-8.2) g/dL Albumin (3.5-5.0) g/dL Urine Color (Yellow) Urine Appearance (Clear) Urine pH (4.6-8.0) Ur Specific [place] (1.005-1.030) Urine Protein (Negative) Urine Glucose (UA) (Negative) mg/dL Urine Ketones (Negative) Urine Blood (Negative) Urine Nitrite (Negative) Urine Bilirubin (Negative) Urine Urobilinogen (0.2) mg/dL Ur Leukocyte Esterase (Negative) U Hyaline Cast (Auto) (0-2) /LPF Urine Microscopic RBC (0-5) /HPF Urine Microscopic WBC (0-5) /HPF Ur Epithelial Cells (None Seen) /HPF Urine Bacteria (None Seen) /HPF Urine Culture Reflexed (NO) Monoscreen (NEGATIVE) Influenza Type A Ag (NEGATIVE) Influenza Type B Ag (NEGATIVE) RSV (PCR) (NEGATIVE) SARS-CoV-2 (PCR) (NEGATIVE) Group A Strep Antibody (NEGATIVE) Slides for Path Review - Progress Progress: unchanged Air Movement: good Progress Note: 02/22/24 14:57 My medical decision making and the assignment of moderate complexity to this patient's medical issue today is based on review of the patient's past medical history, review the patient's medication list, review of the patient's drug allergy list, history present illness and physical findings on examination. The workup includes CBC, CMP, urinalysis, chest x-ray, group A strep swab, monotest, viral swabs. Differential diagnosis includes but is not limited to group A strep pharyngitis, viral illness, urinary tract infection, pneumonia 02/22/24 17:15 I interpreted the patient's laboratory data results. The patient has a significant urinary tract infection and mild dehydration. Patient will benefit from being placed in observation. I spoke with Dr. Pacheco, the telehospitalist on at this time. I reviewed the patient complaint, physical findings on examination, workup that we performed in the emergency department and the results. We will place this patient in observation continue Rocephin intravenous antibiotics and low rate IV fluid. Blood Culture(s) Obtained: Yes Antibiotics given: Yes Discussed with Dr.: Bailey Counseled pt/family regarding: lab results, diagnosis, rad results Medical Desision Making - Independent Historian Additional History obtained from: Spouse - Diagnostic Testing Diagnostic test were ordered, analyzed, and reviewed by me: Yes Radiological Interpretation: Reviewed by me, Teleradiologist Report - Risk of complications The pt has a high risk of morbidity or mortality based on: Decision regarding hospitilization or escalation of hosp level of care - Departure Departure Disposition: Observation Clinical Impression: UTI (urinary tract infection), Mild dehydration, Leukocytosis Condition: Fair Critical Care Time: No Referrals: MARY JACKMAN [Primary Care Provider] - Follow up/PCP as directed
[2024-02-22 13:48] LABS: BASOPHIL % 0.2 % (0.2-1.2); Basophil (Absolute #) 0.05 x10^3/uL (0.01-0.08); Eosinophil (Absolute #) 0 x10^3/uL (0.04-0.54); Hematocrit 46.1 % (40.1-51.0); Hemoglobin 15.7 g/dL (13.7-17.5); IMMATURE GRAN # 0.22 x10^3u/L (0.001-0.031); IMMATURE GRAN % 0.9 % (0.001-0.429); Lymphocyte (Absolute #) 0.99 x10^3/uL (1.32-3.57); Mean Cell Volume 87.6 fL (79.0-92.2); Mean Corpuscular Hemoglobin 29.8 pg (25.7-32.2); Mean Corpuscular Hgb Concent. 34.1 g/dL (32.3-36.5); Mean Platelet Volume 9.2 fL (9.4-12.4); Monocytes % 8.5 % (5.3-12.2); Neutrophil % 86.4 % (34.0-67.9); Platelet Count 373 x10^3/uL (163-337); Red Blood Count 5.26 x10^6/uL (4.63-6.08); White Blood Count 24.8 x10^3/uL (4.23-9.07)
[2024-02-22 13:53] LABS: ALBUMIN 3.8 g/dL (3.5-5.0); ANION GAP 13.9 MEQ/L (5-15); BILIRUBIN,TOTAL 1.3 mg/dL (0.2-1.3); Calcium 8.8 mg/dL (8.4-10.2); Creatinine 1 0.75 mg/dL (0.66-1.25); EST GLOMERULAR FILTRATION RATE 97.1 ML/MIN; Potassium 3.7 mmol/L (3.5-5.1); Total Protein 6.9 g/dL (6.3-8.2)
--- NOTE | 2024-02-22 14:08 | XRAY ---
Indication: Cough. Comparison: None Portable chest demonstrates minimal bibasilar subsegmental atelectasis/scarring. Upper lungs clear. Heart not enlarged with CT proven small hiatal hernia. Bony thorax intact with osteopenia and mild degenerative changes. Impression: Nonacute chest with chronic features.
[2024-02-22 14:16] LABS: Slide Review 1 YES
[2024-02-22 14:37] LABS: INFLUENZA A NEGATIVE (NEGATIVE); INFLUENZA B NEGATIVE (NEGATIVE); RESPIRATORY SYNCTIAL VIRUS NEGATIVE (NEGATIVE); SARS-CoV-2 Xpert Express NEGATIVE (NEGATIVE)
[2024-02-22 15:22] LABS: ADD URINE CULTURE? ORDERED SEPARATELY (NO); Appearance Turbid (Clear); Bacteria Many /HPF (None Seen); Bilirubin Small (Negative); Blood Small (Negative); Epithelial Cells None Seen /HPF (None Seen); Glucose, Urine 500 mg/dL (Negative); Ketones Trace (Negative); Leukocyte Esterase Moderate (Negative); Nitrite Positive (Negative); Ph 5.5 (4.6-8.0); Protein,Urine Dip 30 (Negative); Specific Gravity 1.025 (1.005-1.030); WBC >100 /HPF (0-5)
[2024-02-22] MEDS ORDERED: ROCEPHIN 1 GM / 100 ML NaCl 1 GM/100 ML IVPB IV ONE (16:31)
[2024-02-22] MEDS: ROCEPHIN 1 GM / 100 ML NaCl 1 GM/100 ML IVPB IV ONE (16:33)
[2024-02-22] MEDS ORDERED: Zofran 4 MG/2 ML VIAL IV PRN (20:34)
[2024-02-22] MEDS ORDERED: HUMULIN R SQ PRN (20:34)
[2024-02-22] MEDS ORDERED: TYLENOL 325 MG PO PRN (20:34)
[2024-02-22] MEDS ORDERED: Robitussin 100 MG/5 ML PO PRN (20:42)
[2024-02-22] MEDS ORDERED: Docusate Sodium 100 MG PO PRN (20:43)
[2024-02-22] MEDS ORDERED: Mucinex 600MG ER Tabs PO SCH (22:00)
[2024-02-22] MEDS: Sodium Chloride 0.9% 1000 ML 1,000 ML IV SCH (22:15)
[2024-02-22] MEDS ORDERED: Requip 0.5 MG PO SCH (22:45)
[2024-02-22] MEDS ORDERED: XARELTO 10 MG TABLET PO SCH (22:45)
--- NOTE | 2024-02-22 22:58 | PCM.HP ---
History of Present Illness - Chief Complaint Chief Complaint: UTI Date: 02/22/24 History of Present Illness: is a 68 year old male with a history of stroke (residual aphasia and right hemiplegia) that was brought into the hospital by private vehicle escorted by his due to a cough that began yesterday approximately 10 PM on 02/21/2024. Patient has been a little more lethargic than typical this morning. Patient has a history of hypertension, hyperlipidemia, gastroesophageal reflux disease, diabetes and is on Xarelto. The patient is not able to provide additional history due to aphasia but the at bedside is able to provide additional history. In the ED, the patient was noted to have a negative CXR but had evidence of a UTI. The patient does not have a history of prostate disease. However, the does indicate that the patient has had frequent bladder infections since he had his stroke 2 years ago. There was no report of fevers or chills. - Review of Systems Constitutional: Fatigue, Malaise Eyes: No Symptoms Ears, Nose, & Throat: No Symptoms Respiratory: Cough Cardiac: No Symptoms Abdominal/Gastrointestinal: No Symptoms Genitourinary Symptoms: No Symptoms Musculoskeletal: No Symptoms Skin: No Symptoms Neurological: Speech Changes, Other (right hemiplegia) Psychological: No Symptoms Endocrine: No Symptoms Hematologic/Lymphatic: No Symptoms Immunological/Allergic: No Symptoms All Other Systems: Reviewed and Negative Medications & Allergies Home Medications: Home Medication List Carvedilol 12.5 mg [Coreg 12.5 mg] 3.125 mg PO BID 08/15/17 [History Confirmed 02/22/24] Ropinirole HCl 1 mg PO TID 08/15/17 [History Confirmed 02/22/24] Atorvastatin Calcium 40 mg PO DAILY 09/21/22 [History Confirmed 02/22/24] lisinopriL [Zestril] 2.5 mg PO DAILY 09/21/22 [History Confirmed 02/22/24] Rivaroxaban [Xarelto] 20 mg PO HS 04/28/23 [History Confirmed 02/22/24] Esomeprazole Magnesium 40 mg PO DAILY 02/22/24 [History Confirmed 02/22/24] Metformin HCl 500 mg [Glucophage 500 MG] 500 mg PO BIDWM 02/22/24 [History Confirmed 02/22/24] Multivitamin [Multi-Vitamin Daily] 1 each PO LUNCH 02/22/24 [History Confirmed 02/22/24] Sodium Bicarbonate 650 mg PO BID 02/22/24 [History Confirmed 02/22/24] Allergies/Adverse Reactions: Allergies Allergy/AdvReac Type Severity Reaction Status Date / Time No Known Drug Allergies Allergy Verified 07/06/23 09:35 - Past Medical History Past Medical History: Yes Neurological History: Stroke ENT History: No Pertinent History Cardiac History: Arrhythmia, High Cholesterol, Hypertension, Myocardial Infarction (CA) Respiratory History: COPD, Sleep Apnea Endocrine Medical History: Diabetes Type II, Liver Disease Musculoskelatal History: Degenerative Disk Disease, Fractures GI Medical History: Hepatitis History: No Pertinent History Pyscho-Social History: No Pertinent History Male Reproductive Disorders: No Pertinent History Comment: HX OF MULTIPLE BACK SURGERIES AND WAS SEEN IN PAST FOR PAIN MANAGEMENT DUE TO "BEING ON T00 MANY PAIN PILLS" AND WEANED OFF MEDS. SINCE STROKE NO OPIODS AND SPOUSE REPORTS RARELY DOES HE "RUB IS LEG" AND USES ONLY TYLENOL. FX LEFT ANKLE WITH ORIF WHEN YOUNG, Hepatitis C from blood transfusion. LEFT KNEE REPLACEMENT 4 YEARS AGO. HX SHOULDER SURGERIES BILATERAL, CTR BILATERAL, ELBOW SURGERY RIGHT, LEFT GREAT TOE JOINT REPLACEMENT - Past Surgical History Past Surgical History: Yes Neuro Surgical History: No Pertinent History Cardiac History: Cardiac Catheterization Respiratory Surgery: No Pertinent History GI Surgical History: Other Genitourinary Surgical Hx: No Pertinent History Musculskeletal Surgical Hx: Orthopedic Surgery, Other Male Surgical History: No Pertinent History Other Surgical History: bariatric surgery (2013) 3 back surgeries, left knee replacement,2 nasal surgeries, left elbow, several scopes of different joints. joint replacement in foot, bilateral shoulder surgeries, bilateral carpal tunnel surgeries Significant Family History: no pertinent family hx - Social History Smoking Status: Never smoker Exposure to second hand smoke: No Alcohol: None Drug Use: none - Social Determinants of Health Will the patient participate in the screening: Yes Do you worry about a steady place to live?: No Do you have any problems with any of the following?: No known problems In the past 12 months,have you had to go without utilities?: No Have you or anyone in your house had to go without enough: No Transportation Issues: No Has anyone in your support network made you feel unsafe?: No Does the patient want assistance with any of the above?: No - Physical Exam Vital Signs: Vital Signs - 24 hr Temp Pulse Resp BP BP Pulse Ox 02/22/24 20:34 97.7 F 83 22 102/56 95 02/22/24 19:00 85 21 115/68 02/22/24 18:30 83 24 116/76 02/22/24 18:00 86 17 114/75 02/22/24 17:30 87 19 114/79 02/22/24 17:00 87 16 119/68 02/22/24 16:30 84 15 101/76 02/22/24 16:00 90 23 122/65 02/22/24 15:30 89 26 H 113/71 92 L 02/22/24 15:00 90 23 126/73 02/22/24 14:30 88 28 H 121/81 93 L 02/22/24 14:00 88 28 H 123/88 92 L 02/22/24 13:30 85 22 107/67 91 L 02/22/24 13:00 86 16 91/61 93 L 02/22/24 12:55 98.7 F 92 H 22 106/70 92 L General Appearance: no apparent distress, alert Neurologic Exam: alert, cooperative, university controller II-XII nml as tested, normal mo od/affect, nml cerebellar function Eye Exam: PERRL/EOMI Ears, Nose, Throat Exam: normal ENT inspection Neck Exam: normal inspection, non-tender, supple, full range of motion Respiratory Exam: normal breath sounds, lungs clear Cardiovascular Exam: regular rate/rhythm, normal heart sounds Gastrointestinal/Abdomen Exam: soft, normal bowel sounds Back Exam: normal range of motion Extremity Exam: normal inspection, normal range of motion Skin Exam: normal color Results - Labs Lab/Micro Results: Lab Results-Last 24 Hours 02/22/24 02/22/24 02/22/24 Range/Units 13:28 13:30 13:30 WBC 24.8 H (4.23-9.07) x10^3/uL RBC 5.26 (4.63-6.08) x10^6/uL Hgb 15.7 (13.7-17.5) g/dL Hct 46.1 (40.1-51.0) % MCV 87.6 (79.0-92.2) fL MCH 29.8 (25.7-32.2) pg MCHC 34.1 (32.3-36.5) g/dL RDW 13.0 (11.6-14.4) % Plt Count 373 H (163-337) x10^3/uL MPV 9.2 L (9.4-12.4) fL Gran % 86.4 H (34.0-67.9) % Immature Gran % (Auto) 0.9 H (0.001-0.429) % Nucleat RBC Rel Count 0.0 (0.00-0.2) % Eos # (Auto) 0 L (0.04-0.54) x10^3/uL Immature Gran # (Auto) 0.22 H (0.001-0.031) x10^3u/L Absolute Lymphs (auto) 0.99 L (1.32-3.57) x10^3/uL Absolute Monos (auto) 2.10 H (0.30-0.82) x10^3/uL Absolute Nucleated RBC 0.00 (0.00-0.012) x10^3u/L Lymphocytes % 4.0 L (21.8-53.1) % Monocytes % 8.5 (5.3-12.2) % Eosinophils % 0.0 L (0.8-7.0) % Basophils % 0.2 (0.2-1.2) % Absolute Granulocytes 21.40 H (1.78-5.38) x10^3/uL Basophils # 0.05 (0.01-0.08) x10^3/uL Sodium 136 (135-145) mmol/L Potassium 3.7 (3.5-5.1) mmol/L Chloride 104 (98-107) mmol/L Carbon Dioxide 22 (22-30) mmol/L Anion Gap 13.9 (5-15) MEQ/L BUN 13 (9-20) mg/dL Creatinine 0.75 (0.66-1.25) mg/dL Estimated GFR 97.1 ML/MIN Glucose 189 H (74-106) mg/dL POC Glucometer (74 to 106) mg/dL Lactic Acid 2.0 (0.4-2.0) Calcium 8.8 (8.4-10.2) mg/dL Total Bilirubin 1.30 (0.2-1.3) mg/dL AST 28 (17-59) U/L ALT 31 (0-50) U/L Alkaline Phosphatase 94 (38-126) U/L Serum Total Protein 6.9 (6.3-8.2) g/dL Albumin 3.8 (3.5-5.0) g/dL Urine Color (Yellow) Urine Appearance (Clear) Urine pH (4.6-8.0) Ur Specific Donald (1.005-1.030) Urine Protein (Negative) Urine Glucose (UA) (Negative) mg/dL Urine Ketones (Negative) Urine Blood (Negative) Urine Nitrite (Negative) Urine Bilirubin (Negative) Urine Urobilinogen (0.2) mg/dL Ur Leukocyte Esterase (Negative) U Hyaline Cast (Auto) (0-2) /LPF Urine Microscopic RBC (0-5) /HPF Urine Microscopic WBC (0-5) /HPF Ur Epithelial Cells (None Seen) /HPF Urine Bacteria (None Seen) /HPF Urine Culture Reflexed (NO) Monoscreen (NEGATIVE) Influenza Type A Ag (NEGATIVE) Influenza Type B Ag (NEGATIVE) RSV (PCR) (NEGATIVE) SARS-CoV-2 (PCR) (NEGATIVE) Group A Strep Antibody (NEGATIVE) Slides for Path Review YES 02/22/24 02/22/24 02/22/24 Range/Units 13:30 13:46 15:00 WBC (4.23-9.07) x10^3/uL RBC (4.63-6.08) x10^6/uL Hgb (13.7-17.5) g/dL Hct (40.1-51.0) % MCV (79.0-92.2) fL MCH (25.7-32.2) pg MCHC (32.3-36.5) g/dL RDW (11.6-14.4) % Plt Count (163-337) x10^3/uL MPV (9.4-12.4) fL Gran % (34.0-67.9) % Immature Gran % (Auto) (0.001-0.429) % Nucleat RBC Rel Count (0.00-0.2) % Eos # (Auto) (0.04-0.54) x10^3/uL Immature Gran # (Auto) (0.001-0.031) x10^3u/L Absolute Lymphs (auto) (1.32-3.57) x10^3/uL Absolute Monos (auto) (0.30-0.82) x10^3/uL Absolute Nucleated RBC (0.00-0.012) x10^3u/L Lymphocytes % (21.8-53.1) % Monocytes % (5.3-12.2) % Eosinophils % (0.8-7.0) % Basophils % (0.2-1.2) % Absolute Granulocytes (1.78-5.38) x10^3/uL Basophils # (0.01-0.08) x10^3/uL Sodium (135-145) mmol/L Potassium (3.5-5.1) mmol/L Chloride (98-107) mmol/L Carbon Dioxide (22-30) mmol/L Anion Gap (5-15) MEQ/L BUN (9-20) mg/dL Creatinine (0.66-1.25) mg/dL Estimated GFR ML/MIN Glucose (74-106) mg/dL POC Glucometer (74 to 106) mg/dL Lactic Acid (0.4-2.0) Calcium (8.4-10.2) mg/dL Total Bilirubin (0.2-1.3) mg/dL AST (17-59) U/L ALT (0-50) U/L Alkaline Phosphatase (38-126) U/L Serum Total Protein (6.3-8.2) g/dL Albumin (3.5-5.0) g/dL Urine Color (Yellow) Urine Appearance (Clear) Urine pH (4.6-8.0) Ur Specific Donald (1.005-1.030) Urine Protein (Negative) Urine Glucose (UA) (Negative) mg/dL Urine Ketones (Negative) Urine Blood (Negative) Urine Nitrite (Negative) Urine Bilirubin (Negative) Urine Urobilinogen (0.2) mg/dL Ur Leukocyte Esterase (Negative) U Hyaline Cast (Auto) (0-2) /LPF Urine Microscopic RBC (0-5) /HPF Urine Microscopic WBC (0-5) /HPF Ur Epithelial Cells (None Seen) /HPF Urine Bacteria (None Seen) /HPF Urine Culture Reflexed (NO) Monoscreen NEGATIVE (NEGATIVE) Influenza Type A Ag NEGATIVE (NEGATIVE) Influenza Type B Ag NEGATIVE (NEGATIVE) RSV (PCR) NEGATIVE (NEGATIVE) SARS-CoV-2 (PCR) NEGATIVE (NEGATIVE) Group A Strep Antibody NOT DETECTED (NEGATIVE) Slides for Path Review 02/22/24 02/22/24 Range/Units 15:04 22:46 WBC (4.23-9.07) x10^3/uL RBC (4.63-6.08) x10^6/uL Hgb (13.7-17.5) g/dL Hct (40.1-51.0) % MCV (79.0-92.2) fL MCH (25.7-32.2) pg MCHC (32.3-36.5) g/dL RDW (11.6-14.4) % Plt Count (163-337) x10^3/uL MPV (9.4-12.4) fL Gran % (34.0-67.9) % Immature Gran % (Auto) (0.001-0.429) % Nucleat RBC Rel Count (0.00-0.2) % Eos # (Auto) (0.04-0.54) x10^3/uL Immature Gran # (Auto) (0.001-0.031) x10^3u/L Absolute Lymphs (auto) (1.32-3.57) x10^3/uL Absolute Monos (auto) (0.30-0.82) x10^3/uL Absolute Nucleated RBC (0.00-0.012) x10^3u/L Lymphocytes % (21.8-53.1) % Monocytes % (5.3-12.2) % Eosinophils % (0.8-7.0) % Basophils % (0.2-1.2) % Absolute Granulocytes (1.78-5.38) x10^3/uL Basophils # (0.01-0.08) x10^3/uL Sodium (135-145) mmol/L Potassium (3.5-5.1) mmol/L Chloride (98-107) mmol/L Carbon Dioxide (22-30) mmol/L Anion Gap (5-15) MEQ/L BUN (9-20) mg/dL Creatinine (0.66-1.25) mg/dL Estimated GFR ML/MIN Glucose (74-106) mg/dL POC Glucometer 114 H (74 to 106) mg/dL Lactic Acid (0.4-2.0) Calcium (8.4-10.2) mg/dL Total Bilirubin (0.2-1.3) mg/dL AST (17-59) U/L ALT (0-50) U/L Alkaline Phosphatase (38-126) U/L Serum Total Protein (6.3-8.2) g/dL Albumin (3.5-5.0) g/dL Urine Color Dark Yellow (Yellow) Urine Appearance Turbid A (Clear) Urine pH 5.5 (4.6-8.0) Ur Specific Donald 1.025 (1.005-1.030) Urine Protein 30 (Negative) Urine Glucose (UA) 500 A (Negative) mg/dL Urine Ketones Trace A (Negative) Urine Blood Small A (Negative) Urine Nitrite Positive A (Negative) Urine Bilirubin Small A (Negative) Urine Urobilinogen 1.0 A (0.2) mg/dL Ur Leukocyte Esterase Moderate A (Negative) U Hyaline Cast (Auto) 3-5 A (0-2) /LPF Urine Microscopic RBC 3-5 (0-5) /HPF Urine Microscopic WBC >100 A (0-5) /HPF Ur Epithelial Cells None Seen (None Seen) /HPF Urine Bacteria Many A (None Seen) /HPF Urine Culture Reflexed ORDERED SEPARATELY (NO) Monoscreen (NEGATIVE) Influenza Type A Ag (NEGATIVE) Influenza Type B Ag (NEGATIVE) RSV (PCR) (NEGATIVE) SARS-CoV-2 (PCR) (NEGATIVE) Group A Strep Antibody (NEGATIVE) Slides for Path Review - Radiology Impressions Radiology Exams & Impressions: Radiology Procedures Category Date Time Status CHEST 1 VIEW (PORTABLE) Stat Exams 02/22/24 13:18 Completed Assessment/Plan (1) UTI (urinary tract infection) Current Visit: Yes Status: Acute Assessment & Plan: IV antibiotics. Follow cultures. Due to history of frequent infections, there may be benefit to the patient being referred to urology as an outpatient for urodynamic assessment. Code(s): N39.0 - URINARY TRACT INFECTION, SITE NOT SPECIFIED (2) Leukocytosis Current Visit: Yes Status: Acute Assessment & Plan: IV antibiotics, as above. Will trend WBC count. Code(s): D72.829 - ELEVATED WHITE BLOOD CELL COUNT, UNSPECIFIED (3) CVA (cerebral vascular accident) Current Visit: No Status: Acute Qualifiers: Assessment & Plan: Continue current regimen. PT eval. Code(s): I63.9 - CEREBRAL INFARCTION, UNSPECIFIED (4) HTN (hypertension) Current Visit: No Status: Chronic Qualifiers: Assessment & Plan: Monitor BP on current regimen. No hypotension at this time. Receiving IV fluids. Code(s): I10 - ESSENTIAL (PRIMARY) HYPERTENSION Telemedicine Encounter - Telemedicine Encounter Telemedicine Encounter: "The entirety of this encounter was performed via Telemedicine" This visit was performed using real-time audio and video connection between my location and thepatients locationwith the assistance of a surrogateat the patients location. Written or verbal consent was obtained from the patient/guardian to perform this visit [facility] technology. Any patient questions regarding the telemedicine interaction were answered.
[2024-02-22] MEDS: XARELTO 10 MG TABLET PO SCH (23:21)
[2024-02-22] MEDS: Requip 0.5 MG PO SCH ×2 (23:22→23:44)
[2024-02-22] MEDS: SODIUM BICARBONATE PO SCH (23:22)
[2024-02-22] MEDS: Coreg 3.125 MG PO SCH (23:22)
[2024-02-22] MEDS: NON-FORMULARY ITEM (Ropinirole Hcl [Ropinirole Hcl] 1 MG Tablet) PO SCH (23:43)
[2024-02-22] MEDS: NON-FORMULARY ITEM (Rivaroxaban [Xarelto] 2.5 MG Tablet) PO SCH (23:44)
[2024-02-22] MEDS: COREG 12.5 MG PO SCH (23:44)
[2024-02-23 04:54] LABS: Absolute Neutrophil Ct (ANC) 15.23 x10^3/uL (1.78-5.38); BASOPHIL % 0.3 % (0.2-1.2); Basophil (Absolute #) 0.05 x10^3/uL (0.01-0.08); Eosinophil % 0.3 % (0.8-7.0); Eosinophil (Absolute #) 0.05 x10^3/uL (0.04-0.54); Hematocrit 41.6 % (40.1-51.0); IMMATURE GRAN # 0.07 x10^3u/L (0.001-0.031); IMMATURE GRAN % 0.4 % (0.001-0.429); Lymphocyte (Absolute #) 1.41 x10^3/uL (1.32-3.57); Lymphocytes % 7.7 % (21.8-53.1); Mean Cell Volume 88.3 fL (79.0-92.2); Mean Corpuscular Hemoglobin 29.7 pg (25.7-32.2); Mean Corpuscular Hgb Concent. 33.7 g/dL (32.3-36.5); Mean Platelet Volume 9.3 fL (9.4-12.4); Monocyte (Absolute #) 1.48 x10^3/uL (0.30-0.82); Monocytes % 8.1 % (5.3-12.2); Neutrophil % 83.2 % (34.0-67.9); Platelet Count 321 x10^3/uL (163-337); Red Blood Count 4.71 x10^6/uL (4.63-6.08); Red Cell Distribution Width 13.3 % (11.6-14.4); White Blood Count 18.3 x10^3/uL (4.23-9.07)
[2024-02-23 05:35] LABS: ALBUMIN 3.3 g/dL (3.5-5.0); ANION GAP 12.3 MEQ/L (5-15); BILIRUBIN,TOTAL 1.2 mg/dL (0.2-1.3); Calcium 8.2 mg/dL (8.4-10.2); Creatinine 1 0.72 mg/dL (0.66-1.25); EST GLOMERULAR FILTRATION RATE 98.3 ML/MIN; Potassium 3.1 mmol/L (3.5-5.1); Total Protein 6.2 g/dL (6.3-8.2)
[2024-02-23] MEDS ORDERED: Klor Con PO SCH (07:30)
[2024-02-23] MEDS: Glucophage 500 MG PO SCH (09:04)
[2024-02-23] MEDS: K-LYTE PO SCH (09:05)
[2024-02-23] MEDS ORDERED: ENOXAPARIN SODIUM SQ SCH (10:00)
[2024-02-23] MEDS ORDERED: NON-FORMULARY ITEM (Lisinopril [Zestril] 2.5 MG Tablet) PO SCH (10:00)
[2024-02-23] MEDS ORDERED: LIPITOR 40MG PO SCH (10:00)
[2024-02-23] MEDS ORDERED: NON-FORMULARY ITEM (Esomeprazole Magnesium [Esomeprazole Magnesium] 40 MG Capsule.Dr) PO SCH (10:00)
[2024-02-23] MEDS: Acidophilus TABLET PO SCH (10:47)
[2024-02-23] MEDS: ZOCOR 20MG PO SCH (10:47)
[2024-02-23] MEDS: Zestril 5 MG PO SCH (10:47)
[2024-02-23] MEDS: Protonix 40MG Tablet PO SCH (10:48)
[2024-02-23] MEDS: ROCEPHIN 1 GM / 100 ML NaCl 1 GM/100 ML IVPB IV SCH (11:08)
--- NOTE | 2024-02-23 11:41 | PCM.NOTE ---
Date and Time: 02/23/24 1135 Subjective Assessment: 02/23/24 is a 68 year old male with a history of stroke (residual aphasia and right hemiplegia)(on Xarelto), HTN, hyperlipidemia, arrythmia, PA, COPD, Sleep apnea, type II DM, liver disease, DJD, Hepatitis, and multiple back surgeries. He was brought into the hospital by private vehicle escorted by his due to a cough that began approximately 10 PM on 02/21/2024. Patient has been a little more lethargic than typical yesterday morning. The patient is not able to provide additional history due to aphasia. In the ED, the patient was noted to have a negative CXR but had evidence of a UTI. The patient does not have a history of prostate disease. Per spouse he has had frequent bladder infections since he had his stroke 2 years ago. There was no report of fevers or chills. He was started on IVF and antibiotics. UC gram negative and sensitivity pending. BCx2 pending. Corrected Ca+ 8.4. K+ 3.1 and replaced. - Review of Systems Constitutional: Weakness, No Fever, No Chills Eyes: No Symptoms Ears, Nose, & Throat: No Symptoms Respiratory: No Cough, No Short Of Breath Cardiac: No Chest Pain, No Edema, No Syncope Abdominal/Gastrointestinal: No Abdominal Pain, No Nausea, No Vomiting, No Diarrhea Genitourinary Symptoms: No Dysuria Musculoskeletal: No Back Pain, No Neck Pain Skin: No Rash Neurological: No Dizziness, No Focal Weakness, No Sensory Changes Psychological: No Symptoms Endocrine: No Symptoms Hematologic/Lymphatic: No Symptoms Immunological/Allergic: No Symptoms Objective Exam General Appearance: no apparent distress, alert Neurologic Exam: alert, cooperative, normal mood/affect, sensation nml, motor weakness, aphasia, No motor deficits Skin Exam: normal color, warm, dry Eye Exam: PERRL, EOMI, eyes nml inspection Ears, Nose, Throat Exam: normal ENT inspection, pharynx normal, moist mucous membranes Neck Exam: normal inspection, non-tender, supple, full range of motion Respiratory Exam: normal breath sounds, lungs clear, No respiratory distress Cardiovascular Exam: regular rate/rhythm, normal heart sounds Gastrointestinal/Abdomen Exam: soft, No tenderness, No mass Extremity Exam: normal inspection, normal range of motion Back Exam: normal inspection, normal range of motion, No CVA tenderness, No vertebral tenderness Male Genitalia Exam: deferred Rectal Exam: deferred Objective Data Vital Signs: Vital Signs - 24 hr Temp Pulse Resp BP BP Pulse Ox 02/23/24 07:46 97.3 F 71 16 119/57 93 L 02/23/24 04:00 97.5 F 73 18 112/80 93 L 02/22/24 23:27 98.5 F 80 20 90/53 95 02/22/24 20:34 97.7 F 83 22 102/56 95 02/22/24 19:00 85 21 115/68 02/22/24 18:30 83 24 116/76 02/22/24 18:00 86 17 114/75 02/22/24 17:30 87 19 114/79 02/22/24 17:00 87 16 119/68 02/22/24 16:30 84 15 101/76 02/22/24 16:00 90 23 122/65 02/22/24 15:30 89 26 H 113/71 92 L 02/22/24 15:00 90 23 126/73 02/22/24 14:30 88 28 H 121/81 93 L 02/22/24 14:00 88 28 H 123/88 92 L 02/22/24 13:30 85 22 107/67 91 L 02/22/24 13:00 86 16 91/61 93 L 02/22/24 12:55 98.7 F 92 H 22 106/70 92 L Pain Assessment - Last Documented Pain Intensity 0 Intake and Output: Intake & Output 02/20/24 02/21/24 02/22/24 02/23/24 11:59 11:59 11:59 11:59 Intake Total 676 Balance 676 Weight 120.2 kg Lab Results: Lab Results-Last 24 Hours 02/22/24 02/22/24 02/22/24 Range/Units 13:28 13:30 13:30 WBC 24.8 H (4.23-9.07) x10^3/uL RBC 5.26 (4.63-6.08) x10^6/uL Hgb 15.7 (13.7-17.5) g/dL Hct 46.1 (40.1-51.0) % MCV 87.6 (79.0-92.2) fL MCH 29.8 (25.7-32.2) pg MCHC 34.1 (32.3-36.5) g/dL RDW 13.0 (11.6-14.4) % Plt Count 373 H (163-337) x10^3/uL MPV 9.2 L (9.4-12.4) fL Gran % 86.4 H (34.0-67.9) % Immature Gran % (Auto) 0.9 H (0.001-0.429) % Nucleat RBC Rel Count 0.0 (0.00-0.2) % Eos # (Auto) 0 L (0.04-0.54) x10^3/uL Immature Gran # (Auto) 0.22 H (0.001-0.031) x10^3u/L Absolute Lymphs (auto) 0.99 L (1.32-3.57) x10^3/uL Absolute Monos (auto) 2.10 H (0.30-0.82) x10^3/uL Absolute Nucleated RBC 0.00 (0.00-0.012) x10^3u/L Lymphocytes % 4.0 L (21.8-53.1) % Monocytes % 8.5 (5.3-12.2) % Eosinophils % 0.0 L (0.8-7.0) % Basophils % 0.2 (0.2-1.2) % Absolute Granulocytes 21.40 H (1.78-5.38) x10^3/uL Basophils # 0.05 (0.01-0.08) x10^3/uL Sodium 136 (135-145) mmol/L Potassium 3.7 (3.5-5.1) mmol/L Chloride 104 (98-107) mmol/L Carbon Dioxide 22 (22-30) mmol/L Anion Gap 13.9 (5-15) MEQ/L BUN 13 (9-20) mg/dL Creatinine 0.75 (0.66-1.25) mg/dL Estimated GFR 97.1 ML/MIN Glucose 189 H (74-106) mg/dL POC Glucometer (74 to 106) mg/dL Lactic Acid 2.0 (0.4-2.0) Calcium 8.8 (8.4-10.2) mg/dL Total Bilirubin 1.30 (0.2-1.3) mg/dL AST 28 (17-59) U/L ALT 31 (0-50) U/L Alkaline Phosphatase 94 (38-126) U/L NT-Pro-B Natriuret Pep (<300) pg/mL Serum Total Protein 6.9 (6.3-8.2) g/dL Albumin 3.8 (3.5-5.0) g/dL Urine Color (Yellow) Urine Appearance (Clear) Urine pH (4.6-8.0) Ur Specific [employer] [place] (1.005-1.030) Urine Protein (Negative) Urine Glucose (UA) (Negative) mg/dL Urine Ketones (Negative) Urine Blood (Negative) Urine Nitrite (Negative) Urine Bilirubin (Negative) Urine Urobilinogen (0.2) mg/dL Ur Leukocyte Esterase (Negative) U Hyaline Cast (Auto) (0-2) /LPF Urine Microscopic RBC (0-5) /HPF Urine Microscopic WBC (0-5) /HPF Ur Epithelial Cells (None Seen) /HPF Urine Bacteria (None Seen) /HPF Urine Culture Reflexed (NO) Monoscreen (NEGATIVE) Influenza Type A Ag (NEGATIVE) Influenza Type B Ag (NEGATIVE) RSV (PCR) (NEGATIVE) SARS-CoV-2 (PCR) (NEGATIVE) Group A Strep Antibody (NEGATIVE) Slides for Path Review YES 02/22/24 02/22/24 02/22/24 Range/Units 13:30 13:46 15:00 WBC (4.23-9.07) x10^3/uL RBC (4.63-6.08) x10^6/uL Hgb (13.7-17.5) g/dL Hct (40.1-51.0) % MCV (79.0-92.2) fL MCH (25.7-32.2) pg MCHC (32.3-36.5) g/dL RDW (11.6-14.4) % Plt Count (163-337) x10^3/uL MPV (9.4-12.4) fL Gran % (34.0-67.9) % Immature Gran % (Auto) (0.001-0.429) % Nucleat RBC Rel Count (0.00-0.2) % Eos # (Auto) (0.04-0.54) x10^3/uL Immature Gran # (Auto) (0.001-0.031) x10^3u/L Absolute Lymphs (auto) (1.32-3.57) x10^3/uL Absolute Monos (auto) (0.30-0.82) x10^3/uL Absolute Nucleated RBC (0.00-0.012) x10^3u/L Lymphocytes % (21.8-53.1) % Monocytes % (5.3-12.2) % Eosinophils % (0.8-7.0) % Basophils % (0.2-1.2) % Absolute Granulocytes (1.78-5.38) x10^3/uL Basophils # (0.01-0.08) x10^3/uL Sodium (135-145) mmol/L Potassium (3.5-5.1) mmol/L Chloride (98-107) mmol/L Carbon Dioxide (22-30) mmol/L Anion Gap (5-15) MEQ/L BUN (9-20) mg/dL Creatinine (0.66-1.25) mg/dL Estimated GFR ML/MIN Glucose (74-106) mg/dL POC Glucometer (74 to 106) mg/dL Lactic Acid (0.4-2.0) Calcium (8.4-10.2) mg/dL Total Bilirubin (0.2-1.3) mg/dL AST (17-59) U/L ALT (0-50) U/L Alkaline Phosphatase (38-126) U/L NT-Pro-B Natriuret Pep (<300) pg/mL Serum Total Protein (6.3-8.2) g/dL Albumin (3.5-5.0) g/dL Urine Color (Yellow) Urine Appearance (Clear) Urine pH (4.6-8.0) Ur Specific [employer] [place] (1.005-1.030) Urine Protein (Negative) Urine Glucose (UA) (Negative) mg/dL Urine Ketones (Negative) Urine Blood (Negative) Urine Nitrite (Negative) Urine Bilirubin (Negative) Urine Urobilinogen (0.2) mg/dL Ur Leukocyte Esterase (Negative) U Hyaline Cast (Auto) (0-2) /LPF Urine Microscopic RBC (0-5) /HPF Urine Microscopic WBC (0-5) /HPF Ur Epithelial Cells (None Seen) /HPF Urine Bacteria (None Seen) /HPF Urine Culture Reflexed (NO) Monoscreen NEGATIVE (NEGATIVE) Influenza Type A Ag NEGATIVE (NEGATIVE) Influenza Type B Ag NEGATIVE (NEGATIVE) RSV (PCR) NEGATIVE (NEGATIVE) SARS-CoV-2 (PCR) NEGATIVE (NEGATIVE) Group A Strep Antibody NOT DETECTED (NEGATIVE) Slides for Path Review 02/22/24 02/22/24 02/23/24 Range/Units 15:04 22:46 04:45 WBC 18.3 H (4.23-9.07) x10^3/uL RBC 4.71 (4.63-6.08) x10^6/uL Hgb 14.0 (13.7-17.5) g/dL Hct 41.6 (40.1-51.0) % MCV 88.3 (79.0-92.2) fL MCH 29.7 (25.7-32.2) pg MCHC 33.7 (32.3-36.5) g/dL RDW 13.3 (11.6-14.4) % Plt Count 321 (163-337) x10^3/uL MPV 9.3 L (9.4-12.4) fL Gran % 83.2 H (34.0-67.9) % Immature Gran % (Auto) 0.4 (0.001-0.429) % Nucleat RBC Rel Count 0.0 (0.00-0.2) % Eos # (Auto) 0.05 (0.04-0.54) x10^3/uL Immature Gran # (Auto) 0.07 H (0.001-0.031) x10^3u/L Absolute Lymphs (auto) 1.41 (1.32-3.57) x10^3/uL Absolute Monos (auto) 1.48 H (0.30-0.82) x10^3/uL Absolute Nucleated RBC 0.00 (0.00-0.012) x10^3u/L Lymphocytes % 7.7 L (21.8-53.1) % Monocytes % 8.1 (5.3-12.2) % Eosinophils % 0.3 L (0.8-7.0) % Basophils % 0.3 (0.2-1.2) % Absolute Granulocytes 15.23 H (1.78-5.38) x10^3/uL Basophils # 0.05 (0.01-0.08) x10^3/uL Sodium (135-145) mmol/L Potassium (3.5-5.1) mmol/L Chloride (98-107) mmol/L Carbon Dioxide (22-30) mmol/L Anion Gap (5-15) MEQ/L BUN (9-20) mg/dL Creatinine (0.66-1.25) mg/dL Estimated GFR ML/MIN Glucose (74-106) mg/dL POC Glucometer 114 H (74 to 106) mg/dL Lactic Acid (0.4-2.0) Calcium (8.4-10.2) mg/dL Total Bilirubin (0.2-1.3) mg/dL AST (17-59) U/L ALT (0-50) U/L Alkaline Phosphatase (38-126) U/L NT-Pro-B Natriuret Pep (<300) pg/mL Serum Total Protein (6.3-8.2) g/dL Albumin (3.5-5.0) g/dL Urine Color Dark Yellow (Yellow) Urine Appearance Turbid A (Clear) Urine pH 5.5 (4.6-8.0) Ur Specific [employer] [place] 1.025 (1.005-1.030) Urine Protein 30 (Negative) Urine Glucose (UA) 500 A (Negative) mg/dL Urine Ketones Trace A (Negative) Urine Blood Small A (Negative) Urine Nitrite Positive A (Negative) Urine Bilirubin Small A (Negative) Urine Urobilinogen 1.0 A (0.2) mg/dL Ur Leukocyte Esterase Moderate A (Negative) U Hyaline Cast (Auto) 3-5 A (0-2) /LPF Urine Microscopic RBC 3-5 (0-5) /HPF Urine Microscopic WBC >100 A (0-5) /HPF Ur Epithelial Cells None Seen (None Seen) /HPF Urine Bacteria Many A (None Seen) /HPF Urine Culture Reflexed ORDERED SEPARATELY (NO) Monoscreen (NEGATIVE) Influenza Type A Ag (NEGATIVE) Influenza Type B Ag (NEGATIVE) RSV (PCR) (NEGATIVE) SARS-CoV-2 (PCR) (NEGATIVE) Group A Strep Antibody (NEGATIVE) Slides for Path Review 02/23/24 02/23/24 Range/Units 04:45 06:54 WBC (4.23-9.07) x10^3/uL RBC (4.63-6.08) x10^6/uL Hgb (13.7-17.5) g/dL Hct (40.1-51.0) % MCV (79.0-92.2) fL MCH (25.7-32.2) pg MCHC (32.3-36.5) g/dL RDW (11.6-14.4) % Plt Count (163-337) x10^3/uL MPV (9.4-12.4) fL Gran % (34.0-67.9) % Immature Gran % (Auto) (0.001-0.429) % Nucleat RBC Rel Count (0.00-0.2) % Eos # (Auto) (0.04-0.54) x10^3/uL Immature Gran # (Auto) (0.001-0.031) x10^3u/L Absolute Lymphs (auto) (1.32-3.57) x10^3/uL Absolute Monos (auto) (0.30-0.82) x10^3/uL Absolute Nucleated RBC (0.00-0.012) x10^3u/L Lymphocytes % (21.8-53.1) % Monocytes % (5.3-12.2) % Eosinophils % (0.8-7.0) % Basophils % (0.2-1.2) % Absolute Granulocytes (1.78-5.38) x10^3/uL Basophils # (0.01-0.08) x10^3/uL Sodium 136 (135-145) mmol/L Potassium 3.1 L (3.5-5.1) mmol/L Chloride 103 (98-107) mmol/L Carbon Dioxide 24 (22-30) mmol/L Anion Gap 12.3 (5-15) MEQ/L BUN 14 (9-20) mg/dL Creatinine 0.72 (0.66-1.25) mg/dL Estimated GFR 98.3 ML/MIN Glucose 109 H (74-106) mg/dL POC Glucometer 99 (74 to 106) mg/dL Lactic Acid (0.4-2.0) Calcium 8.2 L (8.4-10.2) mg/dL Total Bilirubin 1.20 (0.2-1.3) mg/dL AST 19 (17-59) U/L ALT 22 (0-50) U/L Alkaline Phosphatase 89 (38-126) U/L NT-Pro-B Natriuret Pep 162 (<300) pg/mL Serum Total Protein 6.2 L (6.3-8.2) g/dL Albumin 3.3 L (3.5-5.0) g/dL Urine Color (Yellow) Urine Appearance (Clear) Urine pH (4.6-8.0) Ur Specific [employer] [place] (1.005-1.030) Urine Protein (Negative) Urine Glucose (UA) (Negative) mg/dL Urine Ketones (Negative) Urine Blood (Negative) Urine Nitrite (Negative) Urine Bilirubin (Negative) Urine Urobilinogen (0.2) mg/dL Ur Leukocyte Esterase (Negative) U Hyaline Cast (Auto) (0-2) /LPF Urine Microscopic RBC (0-5) /HPF Urine Microscopic WBC (0-5) /HPF Ur Epithelial Cells (None Seen) /HPF Urine Bacteria (None Seen) /HPF Urine Culture Reflexed (NO) Monoscreen (NEGATIVE) Influenza Type A Ag (NEGATIVE) Influenza Type B Ag (NEGATIVE) RSV (PCR) (NEGATIVE) SARS-CoV-2 (PCR) (NEGATIVE) Group A Strep Antibody (NEGATIVE) Slides for Path Review Radiology Exams: Radiology Procedures Category Date Time Status CHEST 1 VIEW (PORTABLE) Stat Exams 02/22/24 13:18 Completed Assessment/Plan (1) Complicated UTI (urinary tract infection) Current Visit: Yes Status: Acute Assessment & Plan: - UC gram negative and sensitivity pending - Will need OP F/U with urology - BC X2 pending - reviewed old culture results - Rocephin IV - IVF - Tele Code(s): N39.0 - URINARY TRACT INFECTION, SITE NOT SPECIFIED (2) Leukocytosis Current Visit: Yes Status: Acute Assessment & Plan: - WBC improved today 18.3- trend - 2:2 UTI Code(s): D72.829 - ELEVATED WHITE BLOOD CELL COUNT, UNSPECIFIED (3) CVA (cerebral vascular accident) Current Visit: No Status: Chronic Qualifiers: Assessment & Plan: - hx of multiple strokes - Continue current regimen. PT/OT eval. - Continue regular diet as states this is what he eats at home w/o concern Code(s): I63.9 - CEREBRAL INFARCTION, UNSPECIFIED (4) HTN (hypertension) Current Visit: No Status: Chronic Qualifiers: Assessment & Plan: -Monitor BP on current regimen. No hypotension at this time. Receiving IV fluids. Code(s): I10 - ESSENTIAL (PRIMARY) HYPERTENSION (5) Diabetes mellitus type II, controlled Current Visit: No Status: Chronic Qualifiers: Diabetes mellitus [facility] insulin use: without air purifier servicer use Diabetes mellitus complication status: with other specified complication Qualified Code(s): E11.69 - Type 2 diabetes mellitus with other specified complication Assessment & Plan: - A1C 6.14 01/09/24 - Accuchecks AC/HS - low dose s/s Code(s): E11.9 - TYPE 2 DIABETES MELLITUS WITHOUT COMPLICATIONS (6) Hypokalemia Current Visit: Yes Status: Acute Assessment & Plan: - K+3.1- replaced- trend VTE: Xarelto PPI: Pantoprazole Next of KIN: D/C plan: 1-2 days Code status: SCO/DNR Code(s): E87.6 - HYPOKALEMIA
[2024-02-23] MEDS ORDERED: NON-FORMULARY ITEM (Multivitamin [Multi-Vitamin Daily] 1 EACH Tablet) PO SCH (12:00)
[2024-02-23] MEDS: THERAGRAN MULTIVITAMIN PO SCH (12:44)
[2024-02-23] MEDS ORDERED: XARELTO 10 MG TABLET PO SCH (22:00)
[2024-02-24 05:41] LABS: Hematocrit 40.7 % (40.1-51.0); Hemoglobin 13.5 g/dL (13.7-17.5); Mean Cell Volume 89.3 fL (79.0-92.2); Mean Corpuscular Hemoglobin 29.6 pg (25.7-32.2); Mean Corpuscular Hgb Concent. 33.2 g/dL (32.3-36.5); Mean Platelet Volume 8.8 fL (9.4-12.4); Platelet Count 292 x10^3/uL (163-337); Red Blood Count 4.56 x10^6/uL (4.63-6.08); Red Cell Distribution Width 12.9 % (11.6-14.4); White Blood Count 8.7 x10^3/uL (4.23-9.07)
[2024-02-24 06:07] LABS: ALBUMIN 3.1 g/dL (3.5-5.0); ANION GAP 10.4 MEQ/L (5-15); BILIRUBIN,TOTAL 0.8 mg/dL (0.2-1.3); Calcium 8.1 mg/dL (8.4-10.2); Creatinine 1 0.65 mg/dL (0.66-1.25); EST GLOMERULAR FILTRATION RATE 101.4 ML/MIN; MAGNESIUM 2.2 mg/dL (1.6-2.3); Potassium 3.7 mmol/L (3.5-5.1)
--- NOTE | 2024-02-24 10:23 | PCM.DS ---
Discharge Summary Date of Admission: 02/22/24 20:26 Date of Discharge: 02/29/24 Admitting Physician: KALPESH MILLER MD Primary Care Provider: MARY JACKMAN Allergies Allergies No Known Drug Allergies Allergy (Verified 07/06/23 09:35) Hospital Summary - Hospital Course Hospital Course: 02/23/24 is a 68 year old male with a history of stroke (residual aphasia and right hemiplegia)(on Xarelto), HTN, hyperlipidemia, arrythmia, MO, COPD, Sleep a pnea, type II DM, liver disease, DJD, Hepatitis, and multiple back surgeries. He was brought into the hospital by private vehicle escorted by his due to a cough that began approximately 10 PM on 02/21/2024. Patient has been a little more lethargic than typical yesterday morning. The patient is not able to provide additional history due to aphasia. In the ED, the patient was noted to have a negative CXR but had evidence of a UTI. The patient does not have a history of prostate disease. Per spouse he has had frequent bladder infections since he had his stroke 2 years ago. There was no report of fevers or chills. He was started on IVF and antibiotics. UC gram negative and sensitivity pending. BCx2 pending. Corrected Ca+ 8.4. K+ 3.1 and replaced. 02/24/24 Pt sitting up in the chair, at side. Pt is feeling better today. UC shows + for e-coli. Will d/c today with antibiotic. F/U OP with Urology, appointment made. appointment made to f/u with PCP OP as well. Pt denies any further concerns at this time. - Vitals & Intake/Output Vital Signs: Vital Signs Temperature 97.7 F 02/24/24 07:37 Pulse Rate 68 02/24/24 07:37 Respiratory Rate 19 02/24/24 07:37 Blood Pressure 139/83 02/24/24 07:37 O2 Sat by Pulse Oximetry 94 L 02/24/24 07:37 Intake & Output: Intake & Output 02/21/24 02/22/24 02/23/24 02/24/24 11:59 11:59 11:59 11:59 Intake Total 676 2500 Balance 676 2500 Weight 120.2 kg - Lab Result Diagrams: 02/24/24 05:40 02/24/24 05:40 Lab Results-Last 24 Hrs: Lab Results-Last 24 Hours 02/23/24 02/23/24 02/23/24 Range/Units 11:48 15:05 16:06 WBC (4.23-9.07) x10^3/uL RBC (4.63-6.08) x10^6/uL Hgb (13.7-17.5) g/dL Hct (40.1-51.0) % MCV (79.0-92.2) fL MCH (25.7-32.2) pg MCHC (32.3-36.5) g/dL RDW (11.6-14.4) % Plt Count (163-337) x10^3/uL MPV (9.4-12.4) fL Sodium (135-145) mmol/L Potassium 4.0 D (3.5-5.1) mmol/L Chloride (98-107) mmol/L Carbon Dioxide (22-30) mmol/L Anion Gap (5-15) MEQ/L BUN (9-20) mg/dL Creatinine (0.66-1.25) mg/dL Estimated GFR ML/MIN Glucose (74-106) mg/dL POC Glucometer 110 H 88 (74 to 106) mg/dL Calcium (8.4-10.2) mg/dL Magnesium (1.6-2.3) mg/dL Total Bilirubin (0.2-1.3) mg/dL AST (17-59) U/L ALT (0-50) U/L Alkaline Phosphatase (38-126) U/L Serum Total Protein (6.3-8.2) g/dL Albumin (3.5-5.0) g/dL 02/23/24 02/24/24 02/24/24 Range/Units 21:29 05:40 05:40 WBC 8.7 (4.23-9.07) x10^3/uL RBC 4.56 L (4.63-6.08) x10^6/uL Hgb 13.5 L (13.7-17.5) g/dL Hct 40.7 (40.1-51.0) % MCV 89.3 (79.0-92.2) fL MCH 29.6 (25.7-32.2) pg MCHC 33.2 (32.3-36.5) g/dL RDW 12.9 (11.6-14.4) % Plt Count 292 (163-337) x10^3/uL MPV 8.8 L (9.4-12.4) fL Sodium 136 (135-145) mmol/L Potassium 3.7 (3.5-5.1) mmol/L Chloride 106 (98-107) mmol/L Carbon Dioxide 23 (22-30) mmol/L Anion Gap 10.4 (5-15) MEQ/L BUN 10 (9-20) mg/dL Creatinine 0.65 L (0.66-1.25) mg/dL Estimated GFR 101.4 ML/MIN Glucose 100 (74-106) mg/dL POC Glucometer 83 (74 to 106) mg/dL Calcium 8.1 L (8.4-10.2) mg/dL Magnesium 2.2 (1.6-2.3) mg/dL Total Bilirubin 0.80 (0.2-1.3) mg/dL AST 26 (17-59) U/L ALT 26 (0-50) U/L Alkaline Phosphatase 78 (38-126) U/L Serum Total Protein 6.0 L (6.3-8.2) g/dL Albumin 3.1 L (3.5-5.0) g/dL 02/24/24 Range/Units 07:14 WBC (4.23-9.07) x10^3/uL RBC (4.63-6.08) x10^6/uL Hgb (13.7-17.5) g/dL Hct (40.1-51.0) % MCV (79.0-92.2) fL MCH (25.7-32.2) pg MCHC (32.3-36.5) g/dL RDW (11.6-14.4) % Plt Count (163-337) x10^3/uL MPV (9.4-12.4) fL Sodium (135-145) mmol/L Potassium (3.5-5.1) mmol/L Chloride (98-107) mmol/L Carbon Dioxide (22-30) mmol/L Anion Gap (5-15) MEQ/L BUN (9-20) mg/dL Creatinine (0.66-1.25) mg/dL Estimated GFR ML/MIN Glucose (74-106) mg/dL POC Glucometer 105 (74 to 106) mg/dL Calcium (8.4-10.2) mg/dL Magnesium (1.6-2.3) mg/dL Total Bilirubin (0.2-1.3) mg/dL AST (17-59) U/L ALT (0-50) U/L Alkaline Phosphatase (38-126) U/L Serum Total Protein (6.3-8.2) g/dL Albumin (3.5-5.0) g/dL Micro Results-Entire Visit: Microbiology 02/22/24 15:04 Urine Culture - Final Catherized Escherichia Coli 02/22/24 13:44 Blood Culture - Preliminary Blood 02/22/24 13:35 Blood Culture - Preliminary Blood Accuchecks Date 02/24/24 Date 02/23/24 Date 02/23/24 Time 07:25 - Radiology Exams Ordered Rad Exams-Entire Visit: Radiology Procedures Category Date Time Status CHEST 1 VIEW (PORTABLE) Stat Exams 02/22/24 13:18 Completed - Procedures and Test Procedures and Tests throughout Hospitalization: Therapy Orders & Screens 02/22/24 20:43 PT Eval & Treat (MD Order) ONCE Reason for Eval:: generalized weakness, old stroke with right hemiplegia Diagnosis: UTI OT Eval and Treat (MD Order) ONCE Comment: Physician Instructions: Reason For Exam: Diagnosis: UTI 02/23/24 07:30 OT Screen per Nursing Assess ONCE Comment: Protocol Order Physician Instructions: Greater than 3 points order OT Admission Screening Reason For Exam: Triggered on Admission Diagnosis: UTI Open Wound/Cellutlitis/Pressure Ulcers: No Acute Fx/ORIF/Change in wt bearing status: No Severe MUSCULOSKELETAL pain: No ADL Dysfunction: Yes Acute CVA w/Hemiparesis/Hemiplegia: No Decreased Functional Mobility/Strength: Yes Sprain/Strain: No Acute Post-op Mobility Dysfunction: No Total Points: 4 PT Screen per Nursing Assess ONCE Comment: Protocol Order Physician Instructions: Greater than 3 points order PT Admission Screenin Reason For Exam: Triggered on Admission Diagnosis: UTI Open Wound/Cellutlitis/Pressure Ulcers: No Acute Fx/ORIF/Change in wt bearing status: No Severe MUSCULOSKELETAL pain: No ADL Dysfunction: Yes Acute CVA w/Hemiparesis/Hemiplegia: No Decreased Functional Mobility/Strength: Yes Sprain/Strain: No Acute Post-op Mobility Dysfunction: No Total Points: 4 02/24/24 07:30 ST Screen per Nursing Assess ONCE Comment: Protocol Order Physician Instructions: Greater than [address] Admission Screening Reason For Exam: Triggered on Admission Diagnosis: UTI CVA/Dyshpagia/Aphasia: Yes Cognitive Deficits: No Dehydration/Nutrition Deficit: No Reflux: No Oral-Motor Difficulties: Yes Pneumonia: No Penitentiary Resident: No Total Points: 8 Discharge Exam General Appearance: no apparent distress, alert Neurologic Exam: alert, oriented x 3, cooperative, normal mood/affect, nml cerebellar function, sensation nml, motor weakness (at baseline), aphasia (At baseline), No motor deficits Eye Exam: PERRL, EOMI, eyes nml inspection Ears, Nose, Throat Exam: normal ENT inspection, pharynx normal, moist mucous membranes Neck Exam: normal inspection, non-tender, supple, full range of motion Respiratory Exam: normal breath sounds, lungs clear, No respiratory distress Cardiovascular Exam: regular rate/rhythm, normal heart sounds Gastrointestinal/Abdomen Exam: soft, No tenderness, No mass Male Genitalia Exam: deferred Rectal Exam: deferred Back Exam: normal inspection, normal range of motion, No CVA tenderness, No ruben tebral tenderness Extremity Exam: normal inspection, normal range of motion Skin Exam: normal color, warm, dry Final Diagnosis/Problem List - Final Discharge Diagnosis/Problem (1) Complicated UTI (urinary tract infection) Current Visit: Yes Status: Acute Code(s): N39.0 - URINARY TRACT INFECTION, SITE NOT SPECIFIED (2) Leukocytosis Current Visit: Yes Status: Acute Code(s): D72.829 - ELEVATED WHITE BLOOD CELL COUNT, UNSPECIFIED (3) CVA (cerebral vascular accident) Current Visit: No Status: Chronic Code(s): I63.9 - CEREBRAL INFARCTION, UNSPECIFIED (4) HTN (hypertension) Current Visit: No Status: Chronic Code(s): I10 - ESSENTIAL (PRIMARY) HYPERTENSION (5) Diabetes mellitus type II, controlled Current Visit: No Status: Chronic Code(s): E11.9 - TYPE 2 DIABETES MELLITUS WITHOUT COMPLICATIONS (6) Hypokalemia Current Visit: Yes Status: Acute Assessment & Plan: (1) Complicated UTI (urinary tract infection) Current Visit: Yes Status: Acute Assessment & Plan: - UC gram negative and sensitivity pending - Will need OP F/U with urology - BC X2 pending - reviewed old culture results - Rocephin IV - IVF - Tele 02/21 - UC gram -, e-coli - d/c with antibiotic Code(s): N39.0 - URINARY TRACT INFECTION, SITE NOT SPECIFIED (2) Leukocytosis Current Visit: Yes Status: Acute Assessment & Plan: - WBC improved today 18.3- trend - 2:2 UTI 02/23 - WBC- WNL- resolved Code(s): D72.829 - ELEVATED WHITE BLOOD CELL COUNT, UNSPECIFIED (3) CVA (cerebral vascular accident) Current Visit: No Status: Chronic Qualifiers: Assessment & Plan: - hx of multiple strokes - Continue current regimen. PT/OT eval. - Continue regular diet as states this is what he eats at home w/o concern Code(s): I63.9 - CEREBRAL INFARCTION, UNSPECIFIED (4) HTN (hypertension) Current Visit: No Status: Chronic Qualifiers: Assessment & Plan: -Monitor BP on current regimen. No hypotension at this time. Receiving IV fluids. Code(s): I10 - ESSENTIAL (PRIMARY) HYPERTENSION (5) Diabetes mellitus type II, controlled Current Visit: No Status: Chronic Qualifiers: Diabetes mellitus exterminator helper insulin use: without exterminator helper use Diabetes mellitus complication status: with other specified complication Qualified Code(s): E11.69 - Type 2 diabetes mellitus with other specified complication Assessment & Plan: - A1C 6.14 01/09/24 - Accuchecks AC/HS - low dose s/s Code(s): E11.9 - TYPE 2 DIABETES MELLITUS WITHOUT COMPLICATIONS (6) Hypokalemia Current Visit: Yes Status: Acute Assessment & Plan: - K+3.1- replaced- trend- repeat 4.0 02/21 - resolved Code(s): E87.6 - HYPOKALEMIA - Discharge Discharge Date: 02/24/24 Disposition: Home, Self-Care Condition: Stable Prescriptions: Continue Ropinirole HCl 1 mg PO TID Carvedilol 12.5 mg [Coreg 12.5 mg] 3.125 mg PO BID lisinopriL [Zestril] 2.5 mg PO DAILY Atorvastatin Calcium 40 mg PO DAILY Rivaroxaban [Xarelto] 20 mg PO DINNER Metformin HCl 500 mg [Glucophage 500 MG] 500 mg PO BIDWM Sodium Bicarbonate 650 mg PO BID Esomeprazole Magnesium 40 mg PO DAILY Multivitamin [Multi-Vitamin Daily] 1 each PO LUNCH Docusate Sodium 100 mg [Docusate Sodium 100 MG] 100 mg PO UD Follow up with: MARY JACKMAN [Primary Care Provider] - 03/02/24 2:30 pm MANDI ROMERO MD [NON-STAFF PHY W/O PRIVILEGES] - Office will call patient
[2024-02-24 12:06] VITALS: BP 137/64; PULSE 59; RESP 17; TEMP 97.8; O2SAT 96
== END 2024-02-24 13:39 | disposition home or self-care (01) ==
LOC: ED 12:54 → MED SURG 20:26
PROVIDERS: ADMIT Internal Medicine; ATTEND Internal Medicine
DX: N39.0 Urinary tract infection, site not specified (principal); B96.20 Unspecified Escherichia coli [E. coli] as the cause of diseases classified elsewhere; E86.0 Dehydration; D72.829 Elevated white blood cell count, unspecified; R05.9 Cough, unspecified; Z79.899 Other long term (current) drug therapy; I69.951 Hemiplegia and hemiparesis following unspecified cerebrovascular disease affecting right dominant side; I10 Essential (primary) hypertension; E87.6 Hypokalemia; I69.920 Aphasia following unspecified cerebrovascular disease; E11.9 Type 2 diabetes mellitus without complications; E78.5 Hyperlipidemia, unspecified; J44.9 Chronic obstructive pulmonary disease, unspecified; Z79.01 Long term (current) use of anticoagulants
CPT/HCPCS: 0241U; 36415; 71045; 80053; 81001; 82947; 83605; 83735; 83880; 84132; 85025; 85027; 86308; 87040; 87077; 87086; 87186; 87651; 96365; 97161; 97165; 99283; Q3014; 93268; G0378; J0696; A9270-GY

== ENCOUNTER 2024-08-27 10:09 | Emergency (ER) | payer MEDICARE, OTHER ==
[2024-08-27] MEDS ORDERED: TORAdol 30 mg Injection ONE (10:46)
[2024-08-27] MEDS: TORAdol 30 mg Injection IM ONE (10:48)
--- NOTE | 2024-08-27 10:56 | ERPHSYRPT ---
- History of Present Illness Time Seen by Provider: 08/27/24 10:52 Source: patient Exam Limitations: no limitations Patient Subjective Stated Complaint: pt here for a fall today, has hx of a stroke . Triage Nursing Assessment: . Physician History: 68-year-old male history of stroke with residual right-sided hemiparesis is now a fall risk presents to our ED for evaluation of pain to his right foot and ankle. Patient states he was in his kitchen and had a mechanical fall. Patient states that he tends to fall secondary to his hemiparesis. The fall was mechanical. Patient injured his right foot and ankle. No other injuries reported. No BHT or LOC no neck pain cervical spine cleared clinically. The fall was not associated with any neuro or cardiovascular symptomology. No chest pain or shortness of breath. No nausea vomiting or diaphoresis. No numbness tingling or weakness. Patient otherwise feels well. Daughter at bedside. They voiced no other complaints or concerns at this time. Portions of this note were created with voice recognition technology. There may be grammatical, spelling, punctuation or sound alike errors Timing/Duration: today Severity: moderate Modifying Factors: Improves With: nothing Associated Symptoms: denies symptoms Allergies/Adverse Reactions: No Known Drug Allergies Allergy (Verified 08/27/24 10:18) Home Medications: Carvedilol 12.5 mg [Coreg 12.5 mg] 3.125 mg PO BID 08/15/17 [History] Ropinirole HCl 1 mg PO TID 08/15/17 [History] Atorvastatin Calcium 40 mg PO DAILY 09/21/22 [History] lisinopriL [Zestril] 2.5 mg PO DAILY 09/21/22 [History] Rivaroxaban [Xarelto] 20 mg PO DINNER 04/28/23 [History] Esomeprazole Magnesium 40 mg PO DAILY 02/22/24 [History] Metformin HCl 500 mg [Glucophage 500 MG] 500 mg PO BIDWM 02/22/24 [History] Multivitamin [Multi-Vitamin Daily] 1 each PO LUNCH 02/22/24 [History] Sodium Bicarbonate 650 mg PO BID 02/22/24 [History] Docusate Sodium 100 mg [Docusate Sodium 100 MG] 100 mg PO UD 02/23/24 [History] Hx Tetanus, Diphtheria Vaccination/Date Given: No Hx Influenza Vaccination/Date Given: Yes Hx Pneumococcal Vaccination/Date Given: Yes Immunizations Up to Date: Yes Travel Risk - International Travel Have you traveled outside of the country in past 3 weeks: No - Emerging Infectious Disease Are you exhibiting symptoms associated with any current EIDs: No Symptoms: Fever, Headaches/Body Aches/, Shortness of Breath - Review of Systems Constitutional: No Symptoms, No Fever, No Chills Eyes: No Symptoms Ears, Nose, & Throat: No Symptoms Respiratory: No Symptoms, No Cough, No Dyspnea Cardiac: No Symptoms, No Chest Pain, No Edema, No Syncope Abdominal/Gastrointestinal: No Symptoms, No Abdominal Pain, No Nausea, No Vomiting, No Diarrhea Genitourinary Symptoms: No Symptoms, No Dysuria Musculoskeletal: No Symptoms, No Back Pain, No Neck Pain Skin: No Symptoms, No Rash Neurological: No Symptoms, No Dizziness, No Focal Weakness, No Sensory Changes Psychological: No Symptoms Endocrine: No Symptoms Hematologic/Lymphatic: No Symptoms Immunological/Allergic: No Symptoms All Other Systems: Reviewed and Negative - Past Medical History Pertinent Past Medical History: Yes Neurological History: Stroke ENT History: No Pertinent History Cardiac History: Arrhythmia, High Cholesterol, Hypertension, Myocardial Infarction ([place]) Respiratory History: COPD, Sleep Apnea Endocrine Medical History: Diabetes Type II, Liver Disease Musculoskeletal History: Degenerative Disk Disease, Fractures GI Medical History: Hepatitis History: No Pertinent History Psycho-Social History: No Pertinent History Male Reproductive Disorders: No Pertinent History Other Medical History: HX OF MULTIPLE BACK SURGERIES AND WAS SEEN IN PAST FOR P AIN MANAGEMENT DUE TO "BEING ON T00 MANY PAIN PILLS" AND WEANED OFF MEDS. SINCE STROKE NO OPIODS AND SPOUSE REPORTS RARELY DOES HE "RUB IS LEG" AND USES ONLY TYLENOL. FX LEFT ANKLE WITH ORIF WHEN YOUNG, Hepatitis C from blood transfusion. LEFT KNEE REPLACEMENT 4 YEARS AGO. HX SHOULDER SURGERIES BILATERAL, CTR BILATERAL, ELBOW SURGERY RIGHT, LEFT GREAT TOE JOINT REPLACEMENT - Past Surgical History Past Surgical History: Yes Neuro Surgical History: No Pertinent History Cardiac: Cardiac Catheterization Respiratory: No Pertinent History Gastrointestinal: Other Genitourinary: No Pertinent History Musculoskeletal: Orthopedic Surgery, Other Male Surgical History: No Pertinent History Other Surgical History: bariatric surgery (2013) 3 back surgeries, left knee replacement,2 nasal surgeries, left elbow, several scopes of different joints. joint replacement in foot, bilateral shoulder surgeries, bilateral carpal tunnel surgeries Significant Family History: no pertinent family hx - Social History Smoking Status: Never smoker Exposure to second hand smoke: No Drug Use: none - Social Determinants of Health Will the patient participate in the screening: Yes Do you worry about a steady place to live?: No Do you have any problems with any of the following?: No known problems In the past 12 months,have you had to go without utilities?: No Transportation Issues: No Has anyone in your support network made you feel unsafe?: No Have you or anyone in your house had to go w/o enough food: No - Nursing Vital Signs Nursing Vital Signs: Initial Vital Signs Pulse Rate 57 L 08/27/24 11:00 Respiratory Rate 12 08/27/24 11:00 Blood Pressure 125/80 08/27/24 11:00 O2 Sat by Pulse Oximetry 97 08/27/24 11:00 Pain Scale Pain Intensity 5 - Physical Exam General Appearance: no apparent distress, alert Eye Exam: PERRL/EOMI, eyes nml inspection Ears, Nose, Throat Exam: normal ENT inspection, moist mucous membranes Neck Exam: normal inspection, non-tender, supple, full range of motion Respiratory Exam: normal breath sounds, lungs clear, airway intact, No respiratory distress Cardiovascular Exam: regular rate/rhythm, normal heart sounds, normal peripheral pulses Gastrointestinal/Abdomen Exam: soft, normal bowel sounds, No tenderness, No mass Back Exam: normal inspection, normal range of motion, No CVA tenderness, No vertebral tenderness Extremity Exam: normal inspection, normal range of motion, pelvis stable, other (Some swelling to the right ankle. No focal tenderness. No open or draining lesions. There is some tenderness to the dorsum of the right foot as well. The involved extremity is neurovascularly intact distally compartments are soft cap refill less than 2 seconds.) Neurologic Exam: alert, oriented x 3, cooperative, normal mood/affect, sensation nml, No motor deficits Skin Exam: normal color, warm, dry, No rash Lymphatic Exam: No adenopathy SpO2 Interpretation: normal SpO2: 98 O2 Delivery: Room Air - Course Nursing assessment & vital signs reviewed: Yes - Radiology Exams Foot X-ray Interpretation: Teleradiologist Report (Osteopenia heel spur intact hardware, no fracture or dislocation) Ankle X-ray Interpretation: Teleradiologist Report (No fracture or dislocation) Ordered Tests: Active Orders 24 hr Category Date Time Status ANKLE (3 VIEWS) Stat Exams 08/27/24 10:43 Completed FOOT (MINIMUM 3 VIEWS) Stat Exams 08/27/24 10:43 Completed Medication Summary Discontinued Medications Generic Name Dose Route Start Last Admin Trade Name Dharmesh PRN Reason Stop Dose Admin Ketorolac Tromethamine 30 mg 08/27/24 10:45 08/27/24 10:48 Ketorolac Tromethamine 30 Mg/Ml Inj IM 08/27/24 10:46 30 mg STAT ONE Administration Ketorolac Tromethamine Confirm 08/27/24 10:46 Ketorolac Tromethamine 30 Mg/Ml Inj Administered 08/27/24 10:47 Dose 30 mg .ROUTE .STK-MED ONE - Progress Progress: improved Progress Note: Patient is a 68-year-old male history of right hemiparesis secondary to stroke presents to our ED for evaluation of pain to his right foot and ankle after a mechanical fall at home. X-ray of foot and ankle are negative for fracture dislocation. Patient received Toradol for pain control. Patient resting comfortably. He voices no other complaints or concerns at this time. No indication for further workup. Of note the involved extremity is the patient's Wyatt plegic side. Patient referred to orthopedic clinic to see if the patient would benefit from an AFO or an ankle brace to maintain a neutral position while healing from injury. Portions of this note were created with voice recognition technology. There may be grammatical, spelling, punctuation or sound alike errors Complexity of problem addressed is moderate acute complicated. No critical care time. Complex of data reviewed and analyzed is moderate. Test ordered chest reviewed results analyzed and correlated clinically with history and physical exam. Risk of complication and or risk of morbidity/mortality of patient management is low. Vital stable. Time spent to discharge patient is approximately 15 minutes. Plan of care established for shared decision making. No social determinants of health present to impede follow-up. Portions of this note were created with voice recognition technology. There may be grammatical, spelling, punctuation or sound alike errors 08/27/24 11:35 Counseled pt/family regarding: diagnosis, need for follow-up, rad results - Departure Departure Disposition: Home Clinical Impression: Fall, Ankle sprain, Foot sprain Condition: Stable Critical Care Time: No Referrals: MARY JACKMAN [Primary Care Provider] - Follow up/PCP as directed Additional Instructions: Discharge/Care Plan TIM MORTENSEN was seen on 08/27/24 in the Emergency Room. The patient was counseled regarding Diagnosis,Lab results, Imaging studies, need for follow up and when to return to the Emergency Room. Prescriptions given: Discharge Note I have spoken with the patient and/or caregivers. I have explained the patient's condition, diagnosis and treatment plan based on the information available to me at this time. I have answered the patient's and/or caregiver's questions and addressed any concerns. The patient and/or caregivers have as good understanding of the patient's diagnosis, condition and treatment plan as can be expected at this point. The vital signs have been stable. The patient's condition is stable and appropriate for discharge from the emergency department. The patient will pursue further outpatient evaluation with the primary care physician or other designated or consulting physician as outlined in the discharge instructions. The patient and/or caregivers are agreeable to this plan of care and follow-up instructions have been explained in detail. The patient and/or caregivers have received these instruction. The patient/and or caregivers are aware that any significant change in condition or worsening of symptoms should prompt an immediate return to this or the closest emergency department or call 911. Outpatient Orders: Ortho Referral Time Frame: 1 Day, Facility: [facility] Hosp, Location: [facility]
--- NOTE | 2024-08-27 11:36 | XRAY ---
Indication: Pain. Comparison: None 3 nonweightbearing views right foot demonstrates osteopenia, arthroplasty 1st MTP with intact hardware, remote osteotomy calcaneus with intact posterior screw, and small plantar heel spur. No other bony, articular, or soft tissue abnormalities.
--- NOTE | 2024-08-27 11:36 | XRAY ---
Indication: Pain. Comparison: None 3 view right ankle demonstrates osteopenia, remote osteotomy calcaneus with intact posterior screw, and small plantar heel spur. No other bony, articular, or soft tissue abnormalities.
[2024-08-27 11:42] VITALS: PULSE 60
[2024-08-27 11:43] VITALS: BP 132/77; RESP 11; O2SAT 98
== END 2024-08-27 11:53 | disposition home or self-care (01) ==
LOC: ED 10:09
DX: S93.401A Sprain of unspecified ligament of right ankle, initial encounter (principal); S93.601A Unspecified sprain of right foot, initial encounter; W18.30XA Fall on same level, unspecified, initial encounter; Z91.81 History of falling; Y92.000 Kitchen of unspecified non-institutional (private) residence as the place of occurrence of the external cause; E78.5 Hyperlipidemia, unspecified; I10 Essential (primary) hypertension; E11.9 Type 2 diabetes mellitus without complications; Z79.01 Long term (current) use of anticoagulants; Z79.84 Long term (current) use of oral hypoglycemic drugs; Z79.899 Other long term (current) drug therapy
CPT/HCPCS: 73610; 73630; 96372; 99283; J1885